=== PATIENT | male | born 1955 | race Caucasian/White ===

== ENCOUNTER → 2020-03-21 | Outpatient (CLI) | payer SELFPAY ==
[~2020-03-21] MED LIST: ALBUMIN 25% 12.5GM 50ML 200 ML IV ONE; ALBUMIN 25% 12.5GM 50ML 50 ML IV ONE
[2020-03-21 13:10] LABS: INR 1.08; PROTHROMBIN TIME 14.7 seconds (11.9-14.5)
[2020-03-21 13:11] LABS: PARTIAL THROMBOPLASTIN TIME 37.6 seconds (23.8-35.5)
--- NOTE | 2020-03-21 20:21 | Diagnostic Imaging Report ---
EXAM: Complete Abdominal Ultrasound INDICATION: ^[id number] ^[id number] ^ASCITES COMPARISON: None. TECHNIQUE: Transverse and longitudinal images of the upper abdomen were obtained. FINDINGS: Liver: Size: 14.8 cm in the right midclavicular line, normal Appearance: Heterogeneous/coarse echogenicity, nodular contour Mass: No focal masses Spleen: Size: 13.4 cm in length, enlarged Echogenicity: Normal Mass: No focal masses Gallbladder: Stones/Sludge: None Wall: 0.4 cm Appearance: No pericholecystic fluid or hydrops. Sonographic Charles's Sign: Negative Bile Ducts: Intrahepatic Ducts: No dilatation Extrahepatic Ducts: Common bile duct measures 0.3 cm, no dilatation Pancreas: Not well-visualized. Right Kidney: Size: 11.6 cm Echogenicity: Normal Parenchymal thickness: Normal Collecting System: No hydronephrosis Stone: None Cyst/Mass: None Left Kidney: Size: 10.5 cm Echogenicity: Normal Parenchymal thickness: Normal Collecting System: No hydronephrosis Stone: None Cyst/Mass: None Vessels: Aorta: Not well visualized. Inferior Vena Cava: Not well visualized. Main Portal Vein: 1.3 cm, borderline dilated with hepatopetal flow. Free Fluid: Small volume ascites. IMPRESSION: Cirrhotic liver with signs of portal hypertension such as splenomegaly, mildly dilated portal vein, and small volume ascites. Mild gallbladder wall thickening, which is nonspecific in the setting of cirrhosis. Signed by: Dr. Richie Weir MD on 03/21/2020 8:17 PM
[2020-03-21 21:21] LABS: LYMPHOCYTES,BODY FLUID 70 %; MONO/MACROPHG,BODY FLUID 9 %; NEUTROPHILS,BODY FLUID 8 %; OTHER CELLS,BODY FLUID 13 %
--- NOTE | 2020-03-22 09:58 | NUR ---
called pt for followup after paracentesis on 03/21. pt states he is a little sore still but slept 7 hours last night and can walk without being sob. no c/o voiced
--- NOTE | 2020-03-22 10:28 | Diagnostic Imaging Report ---
PROCEDURE: Ultrasound-guided paracentesis Procedural Personnel Attending physician(s): Latrell Ureña MD Pre-procedure diagnosis: Cirrhosis, ascites Post-procedure diagnosis: Same Indication: Ascites with pain or pressure symptoms Additional clinical history: None Complications: No immediate complications. IMPRESSION: [place] [address] mL of serous fluid. Plan: Resume care by clinical team. PROCEDURE SUMMARY: - Limited abdominal ultrasound - Ultrasound-guided paracentesis - Additional procedure(s): None PROCEDURE DETAILS: Pre-procedure Consent: Informed consent for the procedure including risks, benefits and alternatives was obtained and time-out was performed prior to the procedure. Preparation: The site was prepared and draped using maximal sterile barrier technique including cutaneous antisepsis. Anesthesia/sedation Level of anesthesia/sedation: No sedation Anesthesia/sedation administered by: Not applicable Total intra-service sedation time (minutes): N/A Initial abdominal ultrasound Initial abdominal ultrasound was performed. Findings: Large ascites. A safe window for paracentesis was identified. Paracentesis Local anesthesia was administered. The peritoneal cavity was accessed and fluid return confirmed position. Ascites was drained. The catheter was then removed, and a sterile bandage was applied. Paracentesis access technique: Real-time ultrasound guidance Catheter placed: 5F Yueh Post-drainage ultrasound: Not performed Additional Details Additional description of procedure: None Equipment details: None Specimens removed: Abdominal fluid Estimated blood loss (mL): Less than 10 Standardized report: [email or web address] Attestation Signer name: Latrell Ureña MD I attest that I was present for the entire procedure. I reviewed the stored images and agree with the report as written. Signed by: Latrell Ureña MD on 03/22/2020 10:25 AM
[2020-03-25 21:22] LABS: BODY FLUID APPEARANCE SL.CLOUDY; BODY FLUID COLOR STRAW; BODY FLUID TYPE PLEURAL
[2020-03-25 21:24] LABS: RBC,BODY FLUID 242 cells/uL; WBC,BODY FLUID 67 cells/uL
== END ==
LOC: US 12:24
PROVIDERS: ATTEND Internal Medicine Gastroenterology
DX: R18.8 Other ascites (principal)
CPT/HCPCS: 36415; 49083; 76700; 82040; 84157; 85014; 85049; 85610; 85730; 87070; 87205; 88112; 88305; 89051

== ENCOUNTER → 2020-05-20 | Outpatient (CLI) | payer SELFPAY ==
[~2020-05-20] MED LIST changes: +ALBUMIN 25% 12.5GM 50ML 100 ML IV ONE; -ALBUMIN 25% 12.5GM 50ML 200 ML IV ONE; +ALBUMIN 25% 12.5GM 50ML 300 ML IV ONE; -ALBUMIN 25% 12.5GM 50ML 50 ML IV ONE
[2020-05-20 14:30] LABS: INR 1.07; PROTHROMBIN TIME 14.6 seconds (11.9-14.5)
[2020-05-20 14:31] LABS: PARTIAL THROMBOPLASTIN TIME 33.2 seconds (23.8-35.5)
--- NOTE | 2020-05-20 16:07 | Diagnostic Imaging Report ---
US Guided Paracentesis. History: Recurrent ascites. Request for paracentesis. Hemodialysis Technician: Brenton Marion MD. Director Of Accounts Payable: None. Modality: Ultrasonography Sedation: None. Anesthesia: Lidocaine local infiltration. Estimated blood loss: < 5 cc. Technique: Informed written consent was obtained. Discussion of risks, benefits, and alternatives were made with the patient. The patient expressed understanding and agreed to proceed. A universal timeout was performed prior to starting the procedure. Maximal sterile precautions were utilized. The procedure room personnel used personal protective equipment. The operators additionally used sterile surgical gloves. A preliminary ultrasonography was performed to assess the target and determine a safe access site. It showed ascites. Pertinent ultrasound images were stored to the PACS for documentation. The access site was selected and sterilely prepped and draped. Local anesthesia was administered. A dermatotomy was performed. A catheter over the needle system was advanced into the peritoneal cavity. Straw colored fluid was aspirated and the plastic catheter advanced into the peritoneum. The catheter was then connected to a fluid recovery system. At the end of the procedure, the catheter was withdrawn and an aseptic dressing applied. The patient tolerated the procedure well. After uneventful recovery recovery, the patient was discharged from the department in stable condition. The total amount of fluid recovered is given below. Complications: None immediate. Specimen: Not applicable. Impression: Successful ultrasound-guided paracentesis using a right lower quadrant access with recovery of 12.2 liters of fluid as described above. Thank you for the opportunity to assist in the care of your patient. Signed by: Brenton Marion MD on 05/20/2020 4:04 PM
== END ==
LOC: US 13:49
PROVIDERS: ATTEND Internal Medicine Gastroenterology
DX: R18.8 Other ascites (principal)
CPT/HCPCS: 36415; 49083; 85014; 85049; 85610; 85730; 88112; 88305

== ENCOUNTER → 2020-06-19 | Outpatient (CLI) | payer SELFPAY ==
[~2020-06-19] MED LIST changes: -ALBUMIN 25% 12.5GM 50ML 100 ML IV ONE; -ALBUMIN 25% 12.5GM 50ML 300 ML IV ONE; +ALBUMIN IV ONE
--- NOTE | 2020-06-19 14:07 | Diagnostic Imaging Report ---
PROCEDURE: Ultrasound-guided paracentesis Procedural Personnel Attending physician(s): Latrell Ureña MD Pre-procedure diagnosis: Cirrhosis, ascites Post-procedure diagnosis: Same Indication: Ascites with pain or pressure symptoms Additional clinical history: None Complications: No immediate complications. IMPRESSION: Ultrasound[place] [address] mL of serous fluid. Plan: Resume care by clinical team. PROCEDURE SUMMARY: - Limited abdominal ultrasound - Ultrasound-guided paracentesis - Additional procedure(s): None PROCEDURE DETAILS: Pre-procedure Consent: Informed consent for the procedure including risks, benefits and alternatives was obtained and time-out was performed prior to the procedure. Preparation: The site was prepared and draped using maximal sterile barrier technique including cutaneous antisepsis. Anesthesia/sedation Level of anesthesia/sedation: No sedation Anesthesia/sedation administered by: Not applicable Total intra-service sedation time (minutes): N/A Initial abdominal ultrasound Initial abdominal ultrasound was performed. Findings: Large ascites. A safe window for paracentesis was identified. Paracentesis Local anesthesia was administered. The peritoneal cavity was accessed and fluid return confirmed position. Ascites was drained. The catheter was then removed, and a sterile bandage was applied. Paracentesis access technique: Real-time ultrasound guidance Catheter placed: 5F Yueh Post-drainage ultrasound: Not performed Additional Details Additional description of procedure: None Equipment details: None Specimens removed: Abdominal fluid Estimated blood loss (mL): Less than 10 Standardized report: [email or web address] Attestation Signer name: Latrell Ureña MD I attest that I was present for the entire procedure. I reviewed the stored images and agree with the report as written. Signed by: Latrell Ureña MD on 06/19/2020 2:04 PM
[2020-06-19 15:15] LABS: BODY FLUID APPEARANCE SL.CLOUDY; BODY FLUID COLOR YELLOW; BODY FLUID TYPE PERITONEAL
[2020-06-19 15:16] LABS: RBC,BODY FLUID 18 cells/uL; WBC,BODY FLUID 65 cells/uL
[2020-06-19 15:26] LABS: LYMPHOCYTES,BODY FLUID 29 %; MONO/MACROPHG,BODY FLUID 12 %; NEUTROPHILS,BODY FLUID 18 %; OTHER CELLS,BODY FLUID 41 %
== END ==
LOC: US 11:05
PROVIDERS: ATTEND Internal Medicine Gastroenterology
DX: K72.90 Hepatic failure, unspecified without coma (principal)
CPT/HCPCS: 36415; 49083; 82040; 84157; 87070; 87205; 88112; 88305; 89051

== ENCOUNTER 2020-07-17 17:22 | Emergency (ER) | payer SELFPAY ==
[~2020-07-17] VITALS: Ht 185.4 cm; Wt 86.2 kg
[2020-07-17 18:00] LABS: BASOPHILS # (AUTO) 0.1 (0.0-0.1); BASOPHILS % 0.6 % (0.0-1.0); EOSINOPHILS # (AUTO) 0.2 (0.0-0.4); EOSINOPHILS % 1.2 % (0.0-6.0); HEMATOCRIT 23.9 % (38.2-49.6); HEMOGLOBIN 7.8 g/dL (14.0-18.0); LYMPHOCYTES # (AUTO) 0.3 (1.0-3.2); LYMPHOCYTES % 2.6 % (18.0-39.1); MEAN CORPUSCULAR HEMOGLOBIN 30.4 pg (28-32); MEAN CORPUSCULAR HGB CONC 32.6 g/dL (31-35); MONOCYTES # (AUTO) 0.2 (0.2-0.8); MONOCYTES % 1.7 % (4.4-11.3); NEUTROPHILS # (AUTO) 11.3 (2.1-6.9); NEUTROPHILS % 93.5 % (38.7-80.0); PLATELET COUNT 131 x10e3/uL (140-360); RED BLOOD COUNT 2.57 x10e6/uL (4.3-5.7); RED CELL DISTRIBUTION WIDTH 14.6 % (11.7-14.4)
[2020-07-17 18:17] LABS: PARTIAL THROMBOPLASTIN TIME 35.5 seconds (23.8-35.5)
[2020-07-17 18:22] LABS: INR 1.12
[2020-07-17 18:23] LABS: ALANINE AMINOTRANSFERASE 14 IU/L (0-55); ALBUMIN 3.1 g/dL (3.5-5.0); ALBUMIN/GLOBULIN RATIO 0.9 (0.8-2.0); ALKALINE PHOSPHATASE 155 IU/L (40-150); ANION GAP 15.4 mmol/L (8-16); BLOOD UREA NITROGEN 16 mg/dL (7-26); BUN/CREATININE RATIO 14 (6-25); CALCIUM 9.1 mg/dL (8.4-10.2); CARBON DIOXIDE 19 mmol/L (22-29); CHLORIDE 100 mmol/L (98-107); CREATININE, SERUM 1.12 mg/dL (0.72-1.25); EST GLOMERULAR FILTRATION RATE > 60 ML/MIN (60-); GLUCOSE 90 mg/dL (74-118); POTASSIUM 4.4 mmol/L (3.5-5.1); SODIUM 130 mmol/L (136-145)
--- OUTSIDE RECORDS SUMMARY | 2020-07-17 18:39 | XMS REPORT | Clinical Summary ---
Author Author [facility] Address Unknown Phone Unavailable Care Team Providers Care Reference Test Clerk Name Role Phone Mary Jane Carr PCP Unavailable Allergies No Known Allergies Medications End Date Status Medication Sig Dispensed Refills Start Date Active FOLIC ACID ORAL Take 1 mg by 0 mouth daily . Active thiamine 100 MG tablet Take 100 mg 0 by mouth daily daily . Active MULTIVITAMIN ORAL Take by mouth 0 daily . Active SPIRONOLACTONE ORAL Take 150 mg 0 by mouth daily . Active lansoprazole (PREVACID Take 40 mg by 0 ORAL) mouth daily . Active propranolol HCl Take 20 mg by 0 (PROPRANOLOL ORAL) mouth daily . Active FUROSEMIDE ORAL Take 60 mg by 0 mouth daily . Active Problems Problem Noted Date Alcoholic cirrhosis of liver with ascites 04/05/2020 Portal hypertension 04/05/2020 Ascites due to alcoholic cirrhosis 04/05/2020 H/O esophageal varices 04/05/2020 Screening for cancer 04/05/2020 Screening for endocrine, metabolic and immunity disor ailyn 04/05/2020 Encounters Care Team Description Date Type Specialty Heena Jenkins R Insurance Call 07/17/2020 Telephone Transplant Michell Prajapati MD Results 06/17/2020 Telephone Hepatology Grisel Mcfadden MA confirm audio appt 06/14/2020 Telephone Hepatology Heena Jenkins R Insurance Call 05/30/2020 Telephone Transplant Ila Kent PA Follow-up 05/21/2020 Telephone Hepatology Heena Jenkins R Insurance Call 05/03/2020 Telephone Transplant Antolin Andrew MD Portal hypertension (HCC) (Primary Dx); Alcoholic cirrhosis of liver with ascites (HCC); H/O esophageal varices; Screening for cancer; Screening for endocrine, metabolic and immunity disorder 04/30/2020 Audio - Hepatology Telemedicine Chacho Ramos Jr., MD 04/30/2020 Abstract Transplant Hepatolo gy Grisel Mcfadden MA confirm appt 04/30/20 04/25/2020 Telephone Hepatology Antolin Ryan MD Alcoholic cirrhosis of liver with ascite s (HCC); Portal hypertension (HCC); Ascites due to alcoholic cirrhosis (HCC); H/O esophageal varices; Screening for cancer; Screening for endocrine, metabolic and immunity disorder 04/05/2020 Office Visit Hepatology Ness Burgess 04/02/2020 Documentation Hepatology Karen Christian MA 03/29/2020 Abstract Hepatology Grisel Mcfadden MA 03/27/2020 Abstract Hepatology Grisel Mcfadden MA 03/27/2020 Documentation Hepatology Grisel Mcfadden MA 03/27/2020 Documentation Hepatology Grisel Mcfadden MA 01/25/2020 Abstract Hepatology Kesly Carpio Rec CD (Rec 1 CD/records from [facility] attguillaume Arzola.) 01/24/2020 Telephone Hepatology after 07/17/2019 Social History Date Tobacco Use Types Packs/Day Years Used Never Smoker Sex Assigned at Date Recorded Not on file Industry Job Start Date Occupation Not on file Not on file Not on file Travel End Travel History Travel Start No recent travel history available. Last Filed Vital Signs Time Taken Vital Sign Reading 04/05/2020 10:16 AM CDT Blood Pressure 100/55 04/05/2020 10:16 AM CDT Pulse 66 04/05/2020 10:16 AM CDT Temperature 37.1 C (98.7 F) 04/05/2020 10:16 AM CDT Respiratory Rate 16 04/05/2020 10:16 AM CDT Oxygen Saturation 100% - Inhaled Oxygen - Concentration 04/05/2020 10:16 AM CDT Weight 81.7 kg (180 lb 1.6 oz) 04/05/2020 10:16 AM CDT Height 180.8 cm (5' 11.2") 04/05/2020 10:16 AM CDT Body Mass Index 24.98 Plan of Treatment Health Maintenance Due Date Last Done Comments COLON CANCER SCREENING 1955 COLONOSCOPY PNEUMOCOCCAL VACCINE 2-64 1961 YEARS AT RISK (1 of 1 - PPSV23) INFLUENZA VACCINE (#1) 2020 LIPID PANEL 01/26/2025 01/27/2020 Procedures Comments Procedure Name Priority Date/Time Associated Diag nosis CBC W/PLT COUNT & AUTO Routine 04/05/2020 Alcohol ic cirrhosis of DIFFERENTIAL 11:17 AM CDT liver with ascites (HCC) Ascites due to alcoholic cirrhosis (HCC) ALPHA FETOPROTEIN (AFP), Routine 04/05/2020 Alcoh olic cirrhosis of TUMOR MARKER 11:17 AM CDT liver with ascites (HCC) Ascites due to alcoholic cirrhosis (HCC) CBC W/PLT COUNT & AUTO Routine 04/05/2020 Alcohol ic cirrhosis of DIFFERENTIAL 11:17 AM CDT liver with ascites (HCC) Ascites due to alcoholic cirrhosis (HCC) HEPATIC FUNCTION PANEL Routine 04/05/2020 Alcohol ic cirrhosis of 11:17 AM CDT liver with ascites (HCC) Ascites due to alcoholic cirrhosis (HCC) BASIC METABOLIC PANEL (7) Routine 04/05/2020 Alco holic cirrhosis of 11:17 AM CDT liver with ascites (HCC) Ascites due to alcoholic cirrhosis (HCC) PROTHROMBIN TIME/INR Routine 04/05/2020 Alcoholic cirrhosis of 11:16 AM CDT liver with ascites (HCC) Ascites due to alcoholic cirrhosis (HCC) after 07/17/2019 Results * CBC with platelet count + automated diff (04/05/2020 11:17 AM CDT) WBC 6.0 3.5 - 10.5 K/L [facility] RBC 2.98 (L) 4.63 - 6.08 M/L [facility] Hemoglobin 10.1 (L) 13.7 - 17.5 GM/DL [facility] Hematocrit 30.0 (L) 40.1 - 51.0 % [facility] MCV 100.7 (H) 79.0 - 92.2 fL [facility] MCH 33.9 (H) 25.7 - 32.2 pg [facility] MCHC 33.7 32.3 - 36.5 GM/DL [facility] RDW 14.3 11.6 - 14.4 % [facility] Platelets 116 (L) 150 - 450 K/CU MM [facility] MPV 8.5 (L) 9.4 - 12.4 fL [facility] nRBC 0 0 - 0 /100 WBC [facility] % Neutros 56 % [facility] % Lymphs 32 % [facility] % Monos 6 % [facility] % Eos 4 % [facility] % Baso 1 % [facility] # Neutros 3.32 1.78 - 5.38 K/L [facility] # Lymphs 1.93 1.32 - 3.57 K/L [facility] # Monos 0.38 0.30 - 0.82 K/L [facility] # Eos 0.26 0.04 - 0.54 K/L [facility] # Baso 0.08 0.01 - 0.08 K/L [facility] Immature 0 0 - 1 % [facility] Granulocytes-[facility] Specimen Blood Performing Organization Address City/State/Zipcode Ph one Number [address] [address] [facility] * Alpha fetoprotein (AFP), tumor marker (04/05/2020 11:17 AM CDT) Alpha-Fetoprotein 6.6 <10.0 ng/mL [facility] Specimen Blood Narrative Performed At Tool Keeper ID - [place] F [facility] Performing Organization Address City/[facility] Ph one Number [place] [address] [facility] * Hepatic function panel (04/05/2020 11:17 AM CDT) Protein, Total 7.4 6.0 - 8.3 gm/dL [facility] Albumin 3.6 3.5 - 5.0 g/dL [facility] Total Bilirubin 3.9 (H) 0.2 - 1.2 mg/dL [facility] Bilirubin, Direct 1.7 (H) 0.1 - 0.5 mg/dL [facility] Alkaline Phosphatase 182 (H) 40 - 150 U/L [facility] AST 41 (H) 5 - 34 U/L [facility] ALT 17 6 - 55 U/L [facility] Specimen Blood Narrative Performed At Tool Keeper ID - [place] F [facility] Specimen slightly icteric [facility] Performing Organization Address [facility] Ph one Number [place] [phone] [place] [address] * Basic Metabolic Panel (04/05/2020 11:17 AM CDT) Sodium 131 (L) 136 - 145 meq/L [facility] Potassium 4.3 3.5 - 5.1 meq/L [facility] Chloride 98 98 - 107 meq/L [facility] CO2 24 22 - 29 meq/L [facility] BUN 9 7 - 21 mg/dL [facility] Creatinine 0.81 0.57 - 1.25 mg/dL [facility] Glucose 108 (H) 70 - 105 mg/dL [facility] Calcium 9.4 8.4 - 10.2 mg/dL [facility] EGFR 97Comment: ESTIMATED GFR IS mL/min/1.73 sq m [facility] NOT ACCURATE CREATININE [facility] CLEARANCE IN PREDICTING GLOMERULAR FILTRATION RATE. ESTIMATED GFR IS NOT APPLICABLE FOR DIALYSIS PATIENTS. Specimen Blood Narrative Performed At Tool Keeper ID - [place] F [facility] Specimen slightly icteric [facility] Performing Organization Address City/[facility] Ph one Number [facility] [address] [place], [place] [address] [facility] * Pro-time/INR (04/05/2020 11:16 AM CDT) Protime 14.6 (H) 11.9 - 14.2 seconds [facility] INR 1.2 <=5.9 [facility] Specimen Blood Narrative Performed At Effective 04/26/2019: PT Reference Range Change [facility] New: 11.9-14.2Previous: 11.7-14.7 [facility] MEDICAL CE NTER RECOMMENDED COUMADIN/WARFARIN INR THERA PY RANGES STANDARD DOSE: 2.0-3.0Includes: PRO PHYLAXIS for venous thrombosis, systemic embolization; TREATMENT for venous thro mbosis and/or pulmonary embolus. HIGH RISK: Target INR is 2.5-3.5 for pa tients wiht mechanical heart valves. Performing Organization Address City/[facility] Ph one Number [facility] [address] [place] [address] [address] [facility] after 07/17/2019 Insurance Payer Benefit Subscriber ID Type Phone Address Plan / Group MULTIPLAN [employer] MULTIPLAN xxxxxxxxx PPO PPO
--- OUTSIDE RECORDS SUMMARY | 2020-07-17 18:39 | XMS REPORT | Clinical Summary ---
Author Author [facility] Organization [facility] Address Unknown Phone Unavailable Care Team Providers Care Bisque Cleaner Name Role Phone Mary Jane Carr PCP Allergies No Known Allergies Medications End Date Status Medication Sig Dispensed Refills Start Date 01/30/2020 Discontinued (Reorder) omeprazole (PriLOSEC) 40 Take 40 mg by 0 MG capsule mouth daily. 02/29/2020 omeprazole (PriLOSEC) 40 Take 1 30 capsule 0 0 MG capsule capsule (40 0 mg total) by mouth daily for 30 days. 02/04/2020 ciprofloxacin (CIPRO) 500 Take 1 tablet 10 tablet 0 MG tablet (500 mg 0 total) by mouth 2 (two) times a day for 5 days. 03/01/2020 furosemide (LASIX) 40 mg Take 1 tablet 30 tablet 0 tablet (40 mg total) 0 by mouth daily for 30 days. 02/29/2020 propranoloL (INDERAL) 10 Take 1 tablet 90 tablet 0 MG tablet (10 mg total) 0 by mouth 3 (three) times a day for 30 days. 03/01/2020 spironolactone Take 1 tablet 30 tablet 0 (ALDACTONE) 100 MG tablet (100 mg 0 total) by mouth daily for 30 days. 02/29/2020 lactulose 20 gram/30 mL Take 15 mL 450 mL 0 solution (10 g total) 0 by mouth daily for 30 days. Active Problems Problem Noted Date Acute blood loss anemia 01/27/2020 Iron deficiency anemia due to chronic blood loss Overview: Added automatically from request for pete oliveira [id number] Encounters Care Team Description Date Type Specialty Jackie Morse MA 01/31/2020 Telephone Gastroenterology BaTiffany washburn MD Su, Young, MD 01/29/2020 Anesthesia Gastroenterology Event Barry Velasquez MD ESOPHAGOGASTRODUODENOSCOPY (EGD) 01/29/2020 Surgery Gastroenterology Grant, MD Henry Mcgovern Syed Muhammad Javed, MD Iron deficiency anemia due to chronic bl ood loss (Primary Dx); Acute blood loss anemia; Acute GI bleeding; Hypokalemia; Hyponatremia 01/27/2020 [facility] Internal Nv dicine - Encounter 01/30/2020 after 07/17/2019 Family History Medical History Relation Name Comments Pulmonary fibrosis Brother Alcohol abuse Father Heart disease Maternal Grandfather Kidney disease Maternal Grandfather Arthritis Mother Relation Name Status Comments Brother Father Maternal Grandfather Mother Social History Date Tobacco Use Types Packs/Day Years Used Never Smoker Smokeless Tobacco: Snuff Current User Comments: 50 years Drinks/Week oz/Week Comments Alcohol Use 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 Last Filed Vital Signs Reading Time Taken Comments Vital Sign 109/58 01/30/2020 7:53 AM PHARMACEUTICAL ASSISTANT Blood Pressure 72 01/30/2020 7:53 AM PHARMACEUTICAL ASSISTANT Pulse 36.4 C (97.6 F) 01/30/2020 7:53 AM PHARMACEUTICAL ASSISTANT Temperature 20 01/30/2020 7:53 AM PHARMACEUTICAL ASSISTANT Respiratory Rate 98% 01/30/2020 7:53 AM PHARMACEUTICAL ASSISTANT Oxygen Saturation - - Inhaled Oxygen Concentration 90.8 kg (200 lb 1.6 oz) 01/29/2020 6:40 AM PHARMACEUTICAL ASSISTANT Weight 185.4 cm (6' 1") 01/27/2020 5:19 PM PHARMACEUTICAL ASSISTANT Height 26.4 01/27/2020 5:19 PM PHARMACEUTICAL ASSISTANT Body Mass Index Plan of Treatment Health Maintenance Due Date Last Done Comments COLONOSCOPY SCREENING 2007 SHINGLES VACCINES (#1) 2007 INFLUENZA VACCINE 07/30/2020 Procedures Comments Procedure Name Priority Date/Time Associated Diag nosis MANUAL DIFFERENTIAL Routine 01/30/2020 6:57 AM PHARMACEUTICAL ASSISTANT ESTIMATED GFR Routine 01/30/2020 6:57 AM PHARMACEUTICAL ASSISTANT CBC WITH PLATELET AND Routine 01/30/2020 DIFFERENTIAL 6:57 AM PHARMACEUTICAL ASSISTANT BASIC METABOLIC PANEL Routine 01/30/2020 6:57 AM PHARMACEUTICAL ASSISTANT ESOPHAGOGASTRODUODENOSCOP 01/29/2020 Iron defici ency anemia Y (EGD) 12:09 PM PHARMACEUTICAL ASSISTANT due to chronic bloo d loss XR RIBS W PA CHEST LEFT Routine 01/29/2020 10:18 AM PHARMACEUTICAL ASSISTANT SMEAR REVIEW Routine 01/29/2020 6:38 AM PHARMACEUTICAL ASSISTANT ESTIMATED GFR Routine 01/29/2020 6:38 AM PHARMACEUTICAL ASSISTANT PROTHROMBIN TIME WITH INR Routine 01/29/2020 6:38 AM PHARMACEUTICAL ASSISTANT HC COMPLETE BLD COUNT Routine 01/29/2020 W/AUTO DIFF 6:38 AM PHARMACEUTICAL ASSISTANT BASIC METABOLIC PANEL Routine 01/29/2020 6:38 AM PHARMACEUTICAL ASSISTANT TRANSFUSE RED BLOOD CELLS Routine 01/28/2020 8:34 PM PHARMACEUTICAL ASSISTANT TRANSFUSE RED BLOOD CELLS Routine 01/28/2020 5:06 PM PHARMACEUTICAL ASSISTANT ALBUMIN, MISC FLUID Routine 01/28/2020 12:41 PM PHARMACEUTICAL ASSISTANT CYTOLOGY Routine 01/28/2020 (NON-GYNECOLOGICAL) 12:40 PM PHARMACEUTICAL ASSISTANT REQUEST US ABDOMINAL PARACENTESIS STAT 01/28/2020 IMAGING 12:38 PM PHARMACEUTICAL ASSISTANT SMEAR REVIEW Routine 01/28/2020 6:32 AM PHARMACEUTICAL ASSISTANT ESTIMATED GFR Routine 01/28/2020 6:32 AM PHARMACEUTICAL ASSISTANT BASIC METABOLIC PANEL Routine 01/28/2020 6:32 AM PHARMACEUTICAL ASSISTANT HC COMPLETE BLD COUNT Routine 01/28/2020 W/AUTO DIFF 6:[address] ABDOMEN PELVIS WO STAT 01/27/2020 CONTRAST 9:19 PM PHARMACEUTICAL ASSISTANT OCCULT BLOOD, STOOL Routine 01/27/2020 4:00 PM PHARMACEUTICAL ASSISTANT AMMONIA LEVEL STAT 01/27/2020 2:28 PM PHARMACEUTICAL ASSISTANT PARTIAL THROMBOPLASTIN STAT 01/27/2020 TIME (PTT) 2:22 PM PHARMACEUTICAL ASSISTANT PROTHROMBIN TIME WITH INR STAT 01/27/2020 2:22 PM PHARMACEUTICAL ASSISTANT PREPARE RBC Routine 01/27/2020 1:15 PM PHARMACEUTICAL ASSISTANT B NATRIURETIC PEPTIDE Routine 01/27/2020 1:15 PM PHARMACEUTICAL ASSISTANT LIPID PANEL Routine 01/27/2020 1:15 PM PHARMACEUTICAL ASSISTANT HEMOGLOBIN A1C Routine 01/27/2020 1:15 PM PHARMACEUTICAL ASSISTANT SMEAR REVIEW STAT 01/27/2020 1:15 PM PHARMACEUTICAL ASSISTANT ESTIMATED GFR STAT 01/27/2020 1:15 PM PHARMACEUTICAL ASSISTANT TYPE AND SCREEN Routine 01/27/2020 1:15 PM PHARMACEUTICAL ASSISTANT BASIC METABOLIC PANEL STAT 01/27/2020 1:15 PM PHARMACEUTICAL ASSISTANT HC COMPLETE BLD COUNT STAT 01/27/2020 W/AUTO DIFF 1:15 PM PHARMACEUTICAL ASSISTANT after 07/17/2019 Results * Estimated GFR (01/30/2020 6:57 AM PHARMACEUTICAL ASSISTANT) Only the most recent of 4 results within the time period is included. Estimated GFR >=90 mL/min/1.73 m2 MORROW Comment: GNOSTICIST Catergory Units [facility] G1 >=90 Normal or high G2 60-89 Mildly decreased G3a 45-59 Mildly to moderately decreased G3b 30-44 Moderately to severely decreased G4 15-29 Severely decreased G5 <15 Kidney failure The eGFR was calculated using the Chronic Kidney Disease Epidemiology Collaboration (CKD-EPI) equation. Interpretation is based on recommendations of the National Kidney Foundation-Kidney Disease Outcomes Quality Initiative (NKF-KDOQI) published in 2014. Specimen Plasma specimen Performing Organization Address City/State/Zipcode Ph one Number [facility] [place] [address] PATHOLOGY AND GENOMIC MEDICINE [facility] [address] [facility] [place] [address] HOSPITAL * Manual differential (01/30/2020 6:57 AM PHARMACEUTICAL ASSISTANT) Pathologist [facility] Manual PERFORMED [facility] differential [facility] Neutrophils 59.0 36.0 - 66.0 % [facility] Lymphocytes 36.0 24.0 - 44.0 % [facility] Monocytes 5.0 0.0 - 6.0 % [facility] Eosinophils 0.0 0.0 - 6.0 % [facility] Basophils 0.0 0.0 - 1.2 % [facility] Metamyelocytes 0 0 - 1 % [facility] Promyelocytes 0 0 - 1 % [facility] Platelet slide Decreased (A) [facility] review [facility] Anisocytosis slight [facility] Polychromasia slight [facility] Tear drop cells Occasional [facility] Schistocytes rare [facility] Ovalocytes Occasional [facility] Enlarged Occasional [facility] Specimen Performing Organization Address City/State/Zipcode Ph one Number [facility] [place] [address] PATHOLOGY AND GENOMIC MEDICINE [address] * CBC with platelet and differential (01/30/2020 6:57 AM PHARMACEUTICAL ASSISTANT) Only the most recent of 4 results within the time period is included. WBC 5.8 4.2 - 11.0 k/uL [facility] RBC 2.86 (L) 4.04 - 5.86 m/uL [facility] HGB 9.6 (L) 13.0 - 17.3 g/dL [facility] HCT 28.9 (L) 34.0 - 45.0 % [facility] MCV 101.0 (H) 80.0 - 98.0 fL [facility] MCH 33.6 27.0 - 34.0 pg [facility] MCHC 33.2 31.5 - 36.5 g/dL [facility] RDW - SD 78.6 (H) 37.0 - 51.0 fL [facility] MPV 8.7 7.4 - 10.4 fL [facility] Platelet count 82 (L) 150 - 400 k/uL [facility] Nucleated RBC 0.00 /100 WBC [facility] Neutrophils 59.0 36.0 - 66.0 % [facility] Lymphocytes 36.0 24.0 - 44.0 % [facility] Monocytes 5.0 0.0 - 6.0 % [facility] Eosinophils 0.0 0.0 - 6.0 % [facility] Basophils 0.0 0.0 - 1.2 % [facility] Specimen Blood Performing Organization Address City/[facility] Ph one Number [facility] [address] [place] [address] PATHOLOGY AND GENOMIC MEDICINE [address] * Basic metabolic panel (01/30/2020 6:57 AM PHARMACEUTICAL ASSISTANT) Only the most recent of 4 results within the time period is included. Sodium 134 (L) 135 - 150 mEq/L [facility] Potassium 3.5 3.5 - 5.0 mEq/L [facility] Chloride 100 98 - 112 mEq/L [facility] CO2 21 (L) 24 - 31 mmol/L [facility] Anion gap 13@ANIO 7 - 15 mEq/L [facility] BUN 8 7 - 18 mg/dL [facility] Creatinine 0.70 0.70 - 1.20 mg/dL [facility] Glucose 106 (H) 65 - 100 mg/dL [facility] Calcium 8.1 (L) 8.8 - 10.2 mg/dL [facility] Specimen Plasma specimen Performing Organization Address City/[facility]/Zipcode Ph one Number [facility] [address] [place] [address] PATHOLOGY AND GENOMIC MEDICINE [facility] [address] [place] [address] HOSPITAL * XR Ribs W Pa Chest Left (01/29/2020 10:18 AM PHARMACEUTICAL ASSISTANT) Specimen Narrative Performed At EXAMINATION: XR RIBS W PA CHEST LEFT [facility] CLINICAL HISTORY: fall pain COMPARISON: None. IMPRESSION: 1.Bibasilar atelectasis. No pleural eff usion. No pneumothorax or midline shift. No focal consolidation. 2.The mediastinal contours and cardiac silhouette are unremarkable. Mild atherosclerotic 3.There is an acute, nondisplaced poste rior lateral seventh rib fracture. 4.Otherwise the bony structures are unr emarkable. [facility]-[id number] Procedure Note Hm Interface, Radiology Results Incoming - 01/29/2020 10:26 AM PHARMACEUTICAL ASSISTANT EXAMINATION: XR RIBS W PA CHEST LEFT CLINICAL HISTORY: fall pain COMPARISON: None. IMPRESSION: 1.Bibasilar atelectasis. No pleural effu kvng. No pneumothorax or midline shift. No focal consolidation. 2.The mediastinal contours and cardiac s ilhouette are unremarkable. 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 4.Otherwise the bony structures are unre markable. [facility]-[id number] Performing Organization Address City/[facility] Ph one Number [facility] [address] [place] [address] * Smear review (01/29/2020 6:38 AM PHARMACEUTICAL ASSISTANT) Only the most recent of 3 results within the time period is included. Platelet slide Decreased (A) [place]UONG review [facility] Anisocytosis 1+ [facility] Polychromasia 1+ [facility] Schistocytes FEW [facility] Target cells FEW [facility] Hartford cells FEW [facility] Specimen Performing Organization Address City/State/[facility] Ph one Number [facility] [address] [place] [id number] PATHOLOGY AND GENOMIC MEDICINE [facility] [address] [place] [address] HOSPITAL * Prothrombin time with INR (01/29/2020 6:38 AM PHARMACEUTICAL ASSISTANT) Only the most recent of 2 results within the time period is included. Prothrombin 16.3 (H) 11.5 - 14.5 sec [facility] INR 1.30 [facility] Comment: GNOSTICIST For patients [facility] antico[facility], reference ranges HOSPITAL below: Indication: INR Value Treatment of Venous Thrombosis, 2.0-3.0 pulmonary emboli, or prophylaxis of a venous thrombosis, or systemic emboli. High dose, high risk patients 3.0-4.5 with mechanical valves. NOTE: INR values over 3.0 are sometimes associated with gastrointestinal hemorrhage, especially values over 4.0. Specimen Blood Performing Organization Address City/State/[facility] Ph one Number [facility] [address] [place] [address] PATHOLOGY AND GENOMIC MEDICINE [facility] [address] [place] [address] * Transfuse RBC (01/28/2020 8:34 PM PHARMACEUTICAL ASSISTANT) Only the most recent of 2 results within the time period is included. * Albumin, misc fluid (01/28/2020 12:41 PM PHARMACEUTICAL ASSISTANT) Pathologist [facility] Fluid type Paracentesis [facility] Albumin, fluid 0.8 g/dL [facility] Comment: GNOSTICIST The reference interval(s) and HOSPITAL other method performance specifications have not been established for this body fluid. The test results must be integrated into the clinical context for interpretation. This test has been modified from the manufacturers instructions. The performance characteristics were determined by [facility] in a manner consistent with CLIA requirements. This test has not been cleared or approved by the U.S. Food and Drug Administration. Specimen Fluid Performing Organization Address City/State/Zipcode Ph one Number [facility] DEPARTMENT OF [address] [place] [address] PATHOLOGY AND GENOMIC MEDICINE [address] * Cytology (non-gynecological) request (01/28/2020 12:40 PM PHARMACEUTICAL ASSISTANT) [facility] PATHOLOGY AND GENOMIC MEDICINE Cytology See link below for PDF Lab [facility] (non-gynecologi Report OF PATHOLOGY jovanna) report AND GENOMIC MEDICINE Result status This is Final Report for [facility] ENT [id number] OF PATHOLOGY AND GENOMIC MEDICINE Specimen Performing Organization Address City/[facility] Ph one Number [facility] [place] [address] [place] [address] PATHOLOGY AND GENOMIC MEDICINE * US Abdominal Paracentesis Imaging (01/28/2020 12:38 PM PHARMACEUTICAL ASSISTANT) Specimen Narrative Performed At EXAMINATION: US ABDOMINAL PARACENTESIS IMAGING [facility] CLINICAL HISTORY: ASCITES COMPARISON:None. TECHNIQUE: The procedure's risks, benefits, and al ternatives were discussed with the patient and written, informed consent w as obtained. Using ultrasound guidance, a site for n eedle entry was selected and the overlying skin was prepped and draped i n the usual sterile fashion. 1% buffered lidocaine was used for local anesthesia . A 5 Azeri Catheter and Needle was inse rted into the peritoneal cavity and 6.8 L of peritoneal fluid was removed. The patient tolerated the procedure wit hout difficulty and was discharged to the radiology recovery area for monitoring prior to discharge. EBL: None. COMPLICATIONS: None. SPECIMENS: As above. ASSISTANTS: None. IMPRESSION: Uncomplicated ultrasound-guided diagnos tic and therapeutic paracentesis. [facility]-[id number] Procedure Note Hm Interface, Radiology Results Incoming - 01/28/2020 1:06 PM PHARMACEUTICAL ASSISTANT EXAMINATION: US ABDOMINAL PARACENTESIS IMAGING CLINICAL HISTORY: ASCITES COMPARISON:None. TECHNIQUE: The procedure's risks, benefits, and alternatives were discussed with the patient and written, informed consent was obtained. Using ultrasound guidance, a site for needle entry was selected and the overlying skin was prepped and draped in the usual sterile fashion. 1% buffered lidocaine was used for local anesthesia. A 5 Azeri Catheter and Needle was inserted into the peritoneal cavity and 6.8 L of peritoneal fluid was removed. The patient tolerated the procedure without difficulty and was discharged to the radiology recovery area for monitoring prior to discharge. EBL: None. COMPLICATIONS: None. SPECIMENS: As above. ASSISTANTS: None. IMPRESSION: Uncomplicated ultrasound-guided diagnostic and therapeutic paracentesis. [facility]-[id number] Performing Organization Address City/[facility]/Zipcode Ph one Number [facility] [address] [place] [address] * CT Abdomen Pelvis Wo Contrast (01/27/2020 9:19 PM PHARMACEUTICAL ASSISTANT) Specimen Narrative Performed At CT ABDOMEN PELVIS WO CONTRAST HM [facility] CLINICAL INDICATION: Distended abdome n --R O ascites TECHNIQUE: Multidetector CT of the abdo men and pelvis was performed without intravenous administration of iodinated contrast with multiplanar reformats. CT scans are performed using radiation dose reduction techniques (iterative reconstruction and/or automated exposur e control). Technical factors are evaluated and adjusted to ensure approp riate moderation of exposure. Automated dose management technology is applied to adjust radiation exposure while achieving a diagnostic quality image. COMPARISON: None. FINDINGS: Evaluation of abdominopelvic contents l imited due to lack of IV contrast. Lung bases: Dependent subsegmental at electasis/scarring. Liver: Mild contour irregularity sugg esting chronic liver disease. Gallbladder and biliary: Gallbladder contains tiny dependent calcified stone. Common bile duct is not dilated. Pancreas: Moderately atrophic with fa tty replacement. Spleen: Normal. Gastrointestinal: Small hiatal hernia. Colonic diverticulosis. Large and small bowel are normal in caliber. Appendix i s not visualized. Adrenals: Normal. Kidneys and ureters: No renal or uret eral calculi are visualized. No hydronephrosis. Urinary bladder: No urinary bladder c alculi are visualized. Lymph nodes: No enlarged lymph nodes in the abdomen or pelvis. Peritoneum: Moderate ascites. No free a ir. Vascular: Mild atherosclerotic change s of the abdominal aorta and major branch vessels. Evaluation of vessel lumens is limited due to lack of IV contrast. Reproductive organs: Normal prostate gland and seminal vesicles. Abdominal wall: Diffuse subcutaneous so ft tissue edema. Small bilateral fat-containing inguinal hernias, also c ontain mild ascitic fluid. Bones: Mild degenerative changes. IMPRESSION: 1. Chronic liver disease. 2. Moderate ascites. 3. Cholelithiasis. No CT evidence of ac mago cholecystitis. 4. Colonic diverticulosis without diver ticulitis. [facility]-[id number] Procedure Note Interface, Radiology Results Incoming - 01/27/2020 9:[address] ABDOMEN PELVIS WO CONTRAST CLINICAL INDICATION: Distended abdomen --R O ascites TECHNIQUE: Multidetector CT of the abdomen and pelvis was performed without intravenous administration of iodinated contrast with multiplanar reformats. CT scans are performed using radiation dose reduction techniques (iterative reconstruction and/or automated exposure control). Technical factors are evaluated and adjusted to ensure appropriate moderation of exposure. Automated dose management technology is applied to adjust radiation exposure while achieving a diagnostic quality image. COMPARISON: None. FINDINGS: Evaluation of abdominopelvic contents limited due to lack of IV contrast. Lung bases: Dependent subsegmental atelectasis/scarring. Liver: Mild contour irregularity suggesting chronic liver disease. Gallbladder and biliary: Gallbladder contains tiny dependent calcified stone. Common bile duct is not dilated. Pancreas: Moderately atrophic with fatty replacement. Spleen: Normal. Gastrointestinal: Small hiatal hernia. Colonic diverticulosis. Large and small bowel are normal in caliber. Appendix is not visualized. Adrenals: Normal. Kidneys and ureters: No renal or ureteral calculi are visualized. No hydronephrosis. Urinary bladder: No urinary bladder calculi are visualized. Lymph nodes: No enlarged lymph nodes in the abdomen or pelvis. Peritoneum: Moderate ascites. No free air. Vascular: Mild atherosclerotic changes of the abdominal aorta and major branch vessels. Evaluation of vessel lumens is limited due to lack of IV contrast. Reproductive organs: Normal prostate gland and seminal vesicles. Abdominal wall: Diffuse subcutaneous soft tissue edema. Small bilateral fat- containing inguinal hernias, also contain mild ascitic fluid. Bones: Mild degenerative changes. IMPRESSION: 1. Chronic liver disease. 2. Moderate ascites. 3. Cholelithiasis. No CT evidence of acu te cholecystitis. 4. Colonic diverticulosis without divert iculitis. [facility]-[id number] Performing Organization Address [facility] one Number [facility] [address] [place] [address] * Occult blood, stool (01/27/2020 4:00 PM PHARMACEUTICAL ASSISTANT) Occult blood, Negative for occult blood. [facility]ROW stool Comment: GNOSTICIST Specimen Information [place] Specimen Source: [facility] Specimen Site: Nonpreserved Specimen Stool - Nonpreserved Performing Organization Address [facility] Ph one Number [facility] [address] [place] [address] PATHOLOGY AND GENOMIC MEDICINE [facility] [address] * Ammonia level (01/27/2020 2:28 PM PHARMACEUTICAL ASSISTANT) Ammonia 33 16 - 60 umol/L [facility] Specimen Plasma specimen Performing Organization Address [facility]/Zipcode Ph one Number [facility] [address] [place] [address] PATHOLOGY AND GENOMIC MEDICINE [facility] [address] * Partial thromboplastin time, activated (01/27/2020 2:22 PM PHARMACEUTICAL ASSISTANT) PTT 39.4 (H) 23.0 - 36.0 sec [facility]ROW Comment: GNOSTICIST PTT therapeutic range for [place] unfractionated heparin is HOSPITAL 61.0-112.0 seconds which corresponds to Anti-Xa 0.3-0.7 U/ml. Specimen Blood Performing Organization Address City/[facility] Ph one Number [facility] [address] [place] [address] PATHOLOGY AND GENOMIC MEDICINE [facility] [address] * Prepare RBC, 2 Units (01/27/2020 1:15 PM PHARMACEUTICAL ASSISTANT) Pathologist [facility] Product name Apheresis Red Cell AS3 #1 LR [facility] Unit number [id number] [facility] Product code [id number] [facility] Dispense status Transfused [facility] Blood [id number] [facility] expiration date [facility] Blood type code 0600 [facility] Blood type A NEGATIVE [facility] Compatibility Compatible [facility] Product name Apheresis Red Cell AS3 #1 LR [facility] Unit number [id number] [facility] Product code [id number] [facility] Dispense status Transfused [facility] Blood [id number] [facility] expiration date [facility] [facility] Blood type code 0600 [facility] Blood type A NEGATIVE [facility] Compatibility Compatible [facility] Specimen Blood Performing Organization Address City/State/Zipcode Ph one Number [facility] [address] [place] [address] PATHOLOGY AND GENOMIC MEDICINE [facility] [address] * Type and screen (01/27/2020 1:15 PM PHARMACEUTICAL ASSISTANT) Pathologist [facility] ABO grouping A [facility] Rh type NEG [facility] Antibody screen NEG [facility] (gel) [facility] Specimen Blood Performing Organization Address City/[facility] Ph one Number [facility] [place] [facility] [address] [place] [address] PATHOLOGY AND GENOMIC MEDICINE [facility] [address] [place] [address] * B natriuretic peptide (01/27/2020 1:15 PM PHARMACEUTICAL ASSISTANT) Pathologist [facility] BNP 59 0 - 100 pg/mL [facility] Specimen Blood Performing Organization Address City/[facility] Ph one Number [facility] [place] [facility] [address] [place] [address] PATHOLOGY AND GENOMIC MEDICINE [facility] [address] [place] [address] [place] [address] HOSPITAL * Hemoglobin A1c (01/27/2020 1:15 PM PHARMACEUTICAL ASSISTANT) Pathologist [facility] Hemoglobin A1C <4.7 4.0 - 5.6 % [facility]ROW Comment: GNOSTICIST HbA1c cutoffs for diagnosing [place] diabetes: HOSPITAL 4.0% - 5.6% = normal 5.7% - 6.4% = increased risk for diabetes (prediabetes)9 >=6.5% = diabetes9 Goals for glycemic control (ADA 2016) < 7.0% Target for non adults with diabetes. More or less stringent targets may be appropriate for individual patients. <7.5% Target for Children and adolescents with type 1 diabetes. Specimen Blood Performing Organization Address City/[facility] Ph one Number [facility] [place] [facility] [address] [place] [address] PATHOLOGY AND GENOMIC MEDICINE [facility] [address] [place] [address] * Lipid panel (01/27/2020 1:15 PM PHARMACEUTICAL ASSISTANT) Pathologist [facility] Cholesterol 209 (H) 0 - 199 mg/dL [facility] Triglycerides 102 0 - 149 mg/dL [facility] HDL cholesterol 46 40 - 9,999 mg/dL [facility] LDL cholesterol 162 (H)Comment: Result 0 - 99 mg/dL [place] [facility] obtained by direct LDL GNOSTICIST measurement [facility] Lipid panel See below [facility] interpretation Comment: GNOSTICIST Total Cholesterol (mg/dL) [place] LDL Cholesterol [facility] (mg/dL) <200 Desirable <100 Optimal 200-239 Borderline-high 100-129 Near or above optimal >=240 High 130-159 Borderline-high 160-189 High >=190 Very high HDL Cholesterol (mg/dL) Triglycerides (mg/dL) <40 Low <150 Normal >=60 High 150-199 Borderline-high 200-499 High >=500 Very high Risk Catergories that modify LDL goals. Risk Catergories LDL goal (mg/dL) CHD and CHD risk equivalent <100 (10-year risk >20%) Multiple (2+) risk factors <130 (10-year risk =<20%) 0-1 risk factors <160 (<10-year risk) Defining levels of lipids in metabolic syndrome Triglycerides >=150 mg/dL HDL Cholesterol Men <40 mg/dL Women <50 mg/dL Non-HDL cholesterol is a second target for therapy in persons with high triglycerides (>=200 mg/dL) Specimen Plasma specimen Performing Organization Address City/State/Zipcode Ph one Number [facility] [place] [place] [address] [place] [address] PATHOLOGY AND GENOMIC MEDICINE [facility] [address] [place] [address] HOSPITAL after 07/17/2019 Advance Directives For more information, please contact: [phone] Patient Fisher Seal Explanation Type Date Recorded Advance Directives, 01/27/2020 2:30 PM Living Will and Medical Power of Director Of Programming
--- OUTSIDE RECORDS SUMMARY | 2020-07-17 18:40 | XMS REPORT | Continuity of Care Document ---
Author Author [facility] t Organization [facility] Address [address] [place] [address] Phone Unavailable Care Team Providers Care Pattern Vault Clerk Name Role Phone Mary Jane Carr PCP Unavailable Sherrill Jenkins Attphys Unavailable VINEET LEDBETTER Attphys Unavailable Tin ABRAMS, Donny Galarza Attphys Grisel Mcfadden MA Attphys Unavailable Vinny HAWKINS, Kitty Thorpe Attphys Shelby ABRAMS, Destiny Dangelo Attphys Richard ABRAMS, Beto Flor Attphys Destiny GARCIA Attphys Unavailable Jenifer, Ness Attphys Unavailable Amada Marquez MA, Karen Attphys Unavailable Mini CHARLTON, Jackie Attphys Unavailable Grant MD, Nilson Diehl Attphys Bryn ABRAMS, Jyoti Ferreira Nickolas Attphys [phone] Eva ABRAMS, Clinton Reddy Attphys Penny ABRAMS, Leila Allen Attphys Ifeoma ABRAMS, Tahir Attphys Kelsy Carpio Attphys Unavailable BRYN, NICKOLAS Admphys Unavailable Payers Payer Name Policy Type Policy Number Effective Date Expiration Date S ource MULTIPLAN BCE EMERGISMULTIPLAN PPOxxxxxxxxxPPO xxxxxxxxx [facility] Problems Condition Name Condition Details Condition Category Status Onset Date Resolution Date Last Treatment Date Treating Clinician Comments Source Alcoholic cirrhosis of liver with ascites Alcoholic ci rrhosis of liver with ascites Disease Active 2020-04-05 00:00:00 [facility] Portal hypertension Portal hypertension Disease Active 2020-04-05 00:00 :00 [facility] Ascites due to alcoholic cirrhosis Ascites due to alcoholic cirr hosis Disease Active 2020-04-05 00:00:00 [facility] H/O esophageal varices H/O esophageal varices Disease Active 2020-04-05 00:00:00 [facility] Screening for endocrine, metabolic and immunity disord er Screening for endocrine, metabolic and immunity disorder Disease Active 2020-04-05 00:00:00 [facility] Acute blood loss anemia Acute blood loss anemia Disease Active 2020-01-27 00:00:00 Scooby hernandez Iron deficiency anemia due to chronic blood loss Iron deficiency anemia due to chronic blood loss Disease Active 2020-01-27 00:00:00 Overview: Added automatically from request for surgery [id number] Scooby De [facility]a Allergies, Adverse Reactions, Alerts This patient has no known allergies or adverse reactions. Family History Family Member Diagnosis Comments Start Date Stop Date Source Natural brother Pulmonary fibrosis H gerson De [facility] Natural father Alcohol abuse Scooby De Anda Maternal grandfather Heart disease H gerson [place] Maternal grandfather Kidney disease Scooby De Anda Natural mother Arthritis [facility] Social History Social Habit Start Date Stop Date Quantity Comments Source History of tobacco use Snuff User Sal De And[place] Sex Assigned At Carl doerodrigo De Anda Alcohol intake 2020-01-30 00:00:00 2020-01-30 00:00:00 Ex-drinker (fi nding) Scooby De Anda Tobacco Comment 2020-01-27 00:00:00 2020-01-27 00:00:00 52 years Scooby De Anda Alcohol Comment 2020-01-27 00:00:00 2020-01-27 00:00:00 Quit dennise nking november 2019 after cirrhosis dx Scooby De Anda Smoking Status Start Date Stop Date Source Never smoker Scooby saldaña Medications Ordered Medication Name Filled Medication Name Start Date Stop Da te Current Medication? Ordering Clinician Indication Dosage Frequency Signature (SIG) Comments Components Source propranolol HCl (PROPRANOLOL ORAL) 2020-04-05 10:35:49 Yes 20mg Take 20 mg by mouth daily . [facility] FUROSEMIDE ORAL 2020-04-05 10:35:49 Yes 60 mg Take 60 mg by mouth daily . [facility] FOLIC ACID ORAL 2020-04-05 10:35:48 Yes 1m g Take 1 mg by mouth daily . [facility] thiamine 100 MG tablet 2020-04-05 10:35:48 Yes 100mg QD Take 100 mg by mouth daily daily . [facility] MULTIVITAMIN ORAL 2020-04-05 10:35:48 Yes Ta ke by mouth daily . [facility] SPIRONOLACTONE ORAL 2020-04-05 10:35:48 Yes 150mg Take 150 mg by mouth daily . [facility] lansoprazole (PREVACID ORAL) 2020-04-05 10:35:48 Yes 40mg Take 40 mg by mouth daily . [facility] furosemide (LASIX) 40 mg tablet 2020-01-31 00:00:00 23:59:00 No 40mg QD Take 1 tablet (40 mg total) by mouth daily for 30 days. Scooby De Anda spironolactone (ALDACTONE) 100 MG tablet 2020-01 00:00:00 2020-03-01 23:59:00 No 100mg QD Take 1 tablet (100 mg total) by mouth daily for 30 days. Scooby De Anda omeprazole (PriLOSEC) 40 MG capsule 2020-01-30 11:18:3 3 2020-01-30 00:00:00 No 40mg QD Take 40 mg by mouth daily. Scooby De Anda omeprazole (PriLOSEC) 40 MG capsule 2020-01-30 00:00:0 0 2020-02-29 23:59:00 No 40mg QD Take 1 capsule (40 mg total) by mouth da helder for 30 days. Scooby De Anda propranoloL (INDERAL) 10 MG tablet 2020-01-30 00:00:00 202 23:59:00 No 10mg Q.[id number] Take 1 ta blet (10 mg total) by mouth 3 (three) times a day for 30 days. Scooby hernandez lactulose 20 gram/30 mL solution 2020-01-30 00:00:00 2020-02 23:59:00 No 10g QD Take 15 mL (10 g total) by mouth daily for 30 d ays. Scooby De Anda ciprofloxacin (CIPRO) 500 MG tablet 2020-01-30 00:00:0 0 2020-02-04 23:59:00 No 500mg Q.5D Take 1 tablet ( 500 mg total) by mouth 2 (two) times a day for 5 days. Scooby De Anda Vital Signs Vital Name Observation Time Observation Value Comments Source Systolic blood pressure 2020-04-05 10:16:00 100 mm[Hg] [facility] Diastolic blood pressure 2020-04-05 10:16:00 55 mm[Hg] [facility] Heart rate 2020-04-05 10:16:00 66 /min [facility] Body temperature 2020-04-05 10:16:00 37.06 Bhumika [facility] Respiratory rate 2020-04-05 10:16:00 16 /min [facility] Body height 2020-04-05 10:16:[address] [facility] Body weight Measured 2020-04-05 10:16:00 81.693 kg [facility] BMI 2020-04-05 10:16:00 24.98 kg/m2 [facility] Oxygen saturation in Arterial blood by Pulse oximetry 04-05 10:16:00 100 /min [facility] Systolic blood pressure 2020-01-30 07:53:20 109 mm[Hg] Scooby De Anda Diastolic blood pressure 2020-01-30 07:53:20 58 mm[Hg] Scooby De Anda Heart rate 2020-01-30 07:53:20 72 /min Scooby De [facility]a Body temperature 2020-01-30 07:53:20 36.44 Bhumika [facility] Respiratory rate 2020-01-30 07:53:20 20 /min [facility] Oxygen saturation in Arterial blood by Pulse oximetry 01-29 07:53:20 98 /min Sc[facility]oby De [facility] Body weight 2020-01-29 06:40:00 90.765 kg Scooby De Anda BMI 2020-01-29 06:40:00 26.40 kg/m2 Scooby De [facility]a Body height 2020-01-27 17:19:04 185.4 cm Scooby De Anda Procedures Procedure Date / Time Performed Performing Clinician [facility] e BASIC METABOLIC PANEL (7) 2020-04-05 11:17:00 Antolin Garcia [facility] HEPATIC FUNCTION PANEL 2020-04-05 11:17:00 Antolin Garcia [facility] ALPHA FETOPROTEIN (AFP), TUMOR MARKER 2020-04-05 11:17:00 Antolin Garcia [facility] CBC W/PLT COUNT & AUTO DIFFERENTIAL 2020-04-05 11:17:00 Bora Garcia [facility] PROTHROMBIN TIME/INR 2020-04-05 11:16:00 Antolin Garcia [facility] BASIC METABOLIC PANEL 2020-01-30 06:57:00 Barry Velasquez CBC WITH PLATELET AND DIFFERENTIAL 2020-01-30 06:57:00 EvaEva baird ESTIMATED GFR 2020-01-30 06:57:00 Barry Velasquez MANUAL DIFFERENTIAL 2020-01-30 06:57:00 Barry Velasquez ESOPHAGOGASTRODUODENOSCOPY (EGD) 2020-01-29 12:09:00 Stacy Velasquez XR RIBS W PA CHEST LEFT 2020-01-29 10:18:26 Nickolas Clemente BASIC METABOLIC PANEL 2020-01-29 06:38:00 Nickolas Clemente HC COMPLETE BLD COUNT W/AUTO DIFF 2020-01-29 06:38:00 Nickolas Salinas i PROTHROMBIN TIME WITH INR 2020-01-29 06:38:00 Nickolas Clemente [facility] ESTIMATED GFR 2020-01-29 06:38:00 Nickolas Clemente SMEAR REVIEW 2020-01-29 06:38:00 Bryn Nickolas Jyoti Almodovar [facility] TRANSFUSE RED BLOOD CELLS 2020-01-28 20:34:34 Eva Hersonbrenda De Anda TRANSFUSE RED BLOOD CELLS 2020-01-28 17:06:42 Eva Hersonbrenda Peña stallings [facility] ALBUMIN, MISC FLUID 2020-01-28 12:41:00 Eva Hersonbrenda Pompahaylie Corinna stokes [facility] CYTOLOGY (NON-GYNECOLOGICAL) REQUEST 2020-01-28 12:40:00 Epi Darbyed Jyoti Almodovar [facility] US ABDOMINAL PARACENTESIS IMAGING 2020-01-28 12:38:13 Eva Nany hayden Clinton De Anda HC COMPLETE BLD COUNT W/AUTO DIFF 2020-01-28 06:32:00 Zaki Rae BASIC METABOLIC PANEL 2020-01-28 06:32:00 Dominga Rae ESTIMATED GFR 2020-01-28 06:32:00 Dominga Rae [facility] SMEAR REVIEW 2020-01-28 06:32:00 Dominga Rae [facility] CT ABDOMEN PELVIS WO CONTRAST 2020-01-27 21:19:19 Guerita Rae OCCULT BLOOD, STOOL 2020-01-27 16:00:00 Fazal Grant AMMONIA LEVEL 2020-01-27 14:28:00 Fazal Grant [facility] PROTHROMBIN TIME WITH INR 2020-01-27 14:22:00 Laurel Henley PARTIAL THROMBOPLASTIN TIME (PTT) 2020-01-27 14:22:00 Laurel Stuart HC COMPLETE BLD COUNT W/AUTO DIFF 2020-01-27 13:15:00 Fazal Grant BASIC METABOLIC PANEL 2020-01-27 13:15:00 Fazal Grant ESTIMATED GFR 2020-01-27 13:15:00 Fazal Grant [facility] SMEAR REVIEW 2020-01-27 13:15:00 Fazal Grant [facility] HEMOGLOBIN A1C 2020-01-27 13:15:00 Dominga Rae [facility] LIPID PANEL 2020-01-27 13:15:00 Dominga Rae [facility] B NATRIURETIC PEPTIDE 2020-01-27 13:15:00 Dominga Rae Almodovar [facility] PREPARE RBC 2020-01-27 13:15:00 [facility] Activity Planned Date Details Comments Source Future Scheduled Test 2025-01-26 00:00:00 Lipid panel (proce dure) [code = 56173453] [facility] Future Scheduled Test 2020-07-30 00:00:00 INFLUENZA VACCINE (#1) [code = INFLUENZA VACCINE (#1)] [facility] Future Scheduled Test 2020-07-30 00:00:00 INFLUENZA VACCINE [code = INFLUENZA VACCINE] [facility] Scheduled Test 2007 00:00:00 COLONOSCOPY SCREEN ING [code = COLONOSCOPY SCREENING] [facility] Scheduled Test 2007 00:00:00 SHINGLES VACCINES (#1) [code = SHINGLES VACCINES (#1)] [facility] Scheduled Test 1963 00:00:00 PNEUMOCOCCAL VACCI NE 2-64 YEARS AT RISK (1 of 1 - PPSV23) [code = PNEUMOCOCCAL VACCINE 2-64 YEARS AT RISK (1 of 1 - PPSV23)] [facility] Future Scheduled Test 1955 00:00:00 Screening for radha gnant neoplasm of colon (procedure) [code = 437958395] [facility] Encounters Start Date/Time End Date/Time Encounter Type Admission Type Attendi [facility] Facility Care Department Encounter ID Source 2020-01-27 00:00:00 2020-01-30 00:00:00 Inpatient NICKOLAS CLEMENTE [facility] [id number] [place] [facility] Results Test Description Test Time Test Comments Results Result Comments Source US GUIDED PARACENTESIS 2020-06-19 14:04:00 [facility] [address] [place] [address] Patient Name: GUILLERMO SCHROEDER MR #: [id number] : 1955 Age/Sex: 64/M [facility] #: [id number] [facility] Physician: Ordered by: VINEET LEDBETTER MD Report #: [id number] Location: Room/Bed: Procedure: [id number] US/US GUIDED PARACENTESIS Exam Date: 06/19/20 Exam Time: 1223 REPORT STATUS: Signed PROCEDURE: Ultrasound-guided paracentesis Procedural Personnel Attending physician(s): Donavon العراقي MD Pre-procedure diagnosis: Cirrhosis, ascites Post-procedure diagnosis: Same Indication: Ascites with pain or pressure symptoms Additional clinical h istory: None Complications: No immediate complications. IMPRESSION: [place] [address] mL of serous fluid. Plan: Resume care by clinical team. PROCEDURE SUMMARY: - Limited abdominal ultrasound - Ultrasound-guided paracentesis - Additional procedure(s): None PROCEDURE DETAILS: Pre-procedure Consent: Informed consent for the procedure including risks, benefits and alternatives was obtained and time-out was performed prior to the procedure. Preparation: The site was prepared and draped using maximal sterile barrier technique including cutaneous antisepsis. Anesthesia/sedation Level of anesthesia/sedation: No sedation Anesthesia/sedation administered by: Not applicable Total intra-service sedation time (minutes): N/A Initial abdominal ultrasound Initial abdominal ultrasound was performed. Findings: Large ascites. A safe window for paracentesis was identified. Paracentesis Local anesthesia was administered. The peritoneal cavity was accessed and fluid return confirmed position. Ascites was drained. The catheter was then removed, and a sterile bandage was applied. Paracentesis access technique: Real-time ultrasound guidance Catheter placed: 5F Ahsan Post-drainage ultrasound: Not performed Additional Details Additional description of procedure: None Equipment details: None Specimens removed: Abdominal fluid Estimated blood loss (mL): Less than 10 Standardized report: SIR_Paracentesis_v3 A ttestation Signer name: Donavon العراقي MD I attest that I was present for the entire procedure. I reviewed the stored images and agree with the report as written. Signed by: Donavon العراقي MD on 06/19/2020 2:04 PM Dictated By: DONAVON العراقي MD 03 Transcribed By: TRINH on 06/19/201403 COPY TO: VINEET LEDBETTER MD US GUIDED PARACENTESIS 2020-05-20 16:03:00 [place] [address] Patient Name: GUILLERMO SCHROEDER MR #: [id number] : 1955 Age/Sex: 64/M Req #: [id number] [facility] Physician: Ordered by: VINEET LEDBETTER MD Report #: [id number] Location: Room/Bed: Procedure: [id number] US/US GUIDED PARACENTESIS Exam Date: 05/20/20 Exam Time: 1437 REPORT STATUS: Signed US Guided Paracentesis. History: Recurrent ascites. Request for paracentesis. Insurance Verification Representative: Brenton Senior MD. Mental Health Tech: None. Modality: Ultrasonography Sedation: None. Anesthesia: Lidocaine local infiltration. Estimated blood loss: < 5 cc. Technique: Informed written consent was obtained. Discussion of risks, benefits, and alternatives were made with the patient. The patient expressed understanding and agreed to proceed. A universal timeout was performed prior to starting the procedure. Maximal sterile precautions were utilized. The procedure room personnel used personal protective equipment. The operators additionally used sterile surgical gloves. A preliminary ultrasonography was performed to assess the target and determine a safe access site. It showed ascites. Pertinent ultrasound images were stored to the PACS for documentation. The access site was selected and sterilely prepped and draped. Local anesthesia was administered. A dermatotomy was performed. A catheter over the needle system was advanced into the peritoneal cavity. Straw colored fluid was aspirated and the plastic catheter advanced into the peritoneum. The catheter was then connected to a fluid recovery system. At the end of the procedure, the catheter was withdrawn and an aseptic dressing applied. The patient tolerated the procedure well. After uneventful recovery recovery, the patient was discharged from the department in stable condition. The total amount of fluid recovered is given below. Complications: None immediate. Specimen: Not applicable. Impression: Successful ultrasound-guided paracentesis using a right lower quadrant access with recovery of 12.2 liters of fluid as described above. Thank you for the opportunity to assist in the care of your patient. Signed by: Brenton Senior MD on 05/20/2020 4:04 PM Dictated By: BRENTON SENIOR MD 1604 Transcribed By: TRINH on 05/20/20 1604 COPY TO: VINEET LEDBETTER MD Alpha fetoprotein (AFP), tumor marker 2020-04-05 12:19:00 Test Item Alpha-Fetoprotein (test code = 1834-1) 6.6 ng/mL <10.0 MORIS (test code = MORIS) Turbine Room Attendant ID Shannon MONIQUE F Lab Interpretation (test code = 05813-5) [facility] TUMOR [id number] 12:19:00* Test Item Value Reference Range Interpretation Comments ALPHA-FETOPROTEIN (BEAKER) (test code = 1094) 6.6 ng/mL <10.0 Turbine Room Attendant ID Shannon MONIQUE FBasic Metabolic [id number] 11:59:00* Test Item Value Reference Range Interpretation Comments Sodium (test code = 2951-2) 131 meq/L 136-145 L Potassium (test code = 2823-3) 4.3 meq/L 3.5-5.1 Chloride (test code = 2075-0) 98 meq/L 98-107 CO2 (test code = 8-9) 24 meq/L 22-29 BUN (test code = 3094-0) 9 mg/dL 7-21 Creatinine (test code = 2160-0) 0.81 mg/dL 0.57-1.25 Glucose (test code = 2345-7) 108 mg/dL 70-105 H Calcium (test code = 73091-1) 9.4 mg/dL 8.4-10.2 EGFR (test code = 38756-3) 97 mL/min/1.73 sq m ESTIMATED GFR IS NOT ACCURATE CREATININE CLEARANCE IN PREDICTING GLOMERULAR FILTRATION RATE. ESTIMATED GFR IS NOT APPLICABLE FOR DIALYSIS PATIENTS. MORIS (test code = MORIS) Turbine Room Attendant ID - ENEIDA CasterStatspecchance slightly ict ivelisse Lab Interpretation (test code = 42975-9) Abnormal [facility] [id number] 11:59:00* Test Item Value Reference Range Interpretation Comments Protein, Total (test code = 2885-2) 7.4 6.0- 8.3 gm/dL Albumin (test code = 84571-5) 3.6 g/dL 3.5-5 Total Bilirubin (test code = 1975-2) 3.9 mg/dL 0.2-1.2 H Bilirubin, Direct (test code = 1968-7) 1.7 mg/dL 0.1-0.5 H Alkaline Phosphatase (test code = 6768-6) 182 U/L 40-150 H AST (test code = 1920-8) 41 U/L 5-34 H ALT (test code = 1742-6) 17 U/L 6-55 MORIS (test code = MORIS) Turbine Room Attendant ID - ENEIDA FSpecimen slightly ict ivelisse Lab Interpretation (test code = 44013-1) Abnormal [facility]OLIC [id number] 11:59:00* Test Item Value Reference Range Interpretation Comments SODIUM (BEAKER) (test code = 381) 131 meq/L 136-145 L POTASSIUM (BEAKER) (test code = 379) 4.3 meq/L 3.5-5.1 CHLORIDE (BEAKER) (test code = 382) 98 meq/L 98-107 CO2 (BEAKER) (test code = 355) 24 meq/L 22-29 BLOOD UREA NITROGEN (BEAKER) (test code = 354) 9 mg/dL 7-21 CREATININE (BEAKER) (test code = 358) 0.81 mg/dL 0.57-1.25 GLUCOSE RANDOM (BEAKER) (test code = 652) 108 mg/dL 70-105 H CALCIUM (BEAKER) (test code = 697) 9.4 mg/dL 8.4-10.2 EGFR (BEAKER) (test code = 1092) 97 mL/min/1.73 sq m ESTIMATED GFR IS NOT ACCURATE CREATININE CLEARANCE IN PREDICTING GLOMERULAR FILTRATION RATE. ESTIMATED GFR IS NOT APPLICABLE FOR DIALYSIS PATIENTS. Turbine Room Attendant CHARITO FLORESpecimen slightly ictericHEPATIC FUNCTION PANEL 2020-04-05 11:59:00* Test Item Value Reference Range Interpretation Comments TOTAL PROTEIN (BEAKER) (test code = 770) 7.4 gm/dL 6.0-8.3 ALBUMIN (BEAKER) (test code = 1145) 3.6 g/dL 3.5-5.0 BILIRUBIN TOTAL (BEAKER) (test code = 377) 3.9 mg/dL 0.2-1.2 H BILIRUBIN DIRECT (BEAKER) (test code = 706) 1.7 mg/dL 0.1-0.5 H ALKALINE PHOSPHATASE (BEAKER) (test code = 346) 182 U/L 40-150 H AST (SGOT) (BEAKER) (test code = 353) 41 U/L 5-34 H ALT (SGPT) (BEAKER) (test code = 347) 17 U/L 6-55 Turbine Room Attendant ID Shannon FLORESpecimen slightly ictericPro-time/[id number] 11:49:00 * Test Item Value Reference Range Interpretation Comments Protime (test code = 5902-2) 14.6 11.9- 14.2 seconds H INR (test code = 6301-6) 1.2 <=5.9 MORIS (test code = MORIS) Effective 04/26/2019: PT Refe rence Range ChangeNew: 11.9- 14.2 Previous: 11.7-14.7 RECOMMENDED COUMADIN/WARFARIN INR THERAPY RANGESSTANDARD DOSE: 2.0-3.0 Includes: PROPHYLAXIS for venous thrombosis, sys temic embolization; TREATMENT for venous thrombosis and/or pulmonary embolus.HIGH RISK: Target INR is 2.5-3.5 for patients wiht mechanical heart valves. Lab Interpretation (test code = 52504-6) Abnormal [facility][id number] 11:49:00* Test Item Value Reference Range Interpretation Comments PROTIME (BEAKER) (test code = 759) 14.6 seconds 11.9-14.2 H INR (BEAKER) (test code = 370) 1.2 <=5.9 Effective 04/26/2019: PT Reference Range ChangeNew: 11.9-14.2 Previous: 11.7-14. 7RECOMMENDED COUMADIN/WARFARIN INR THERAPY RANGESSTANDARD DOSE: 2.0-3.0 Include s: PROPHYLAXIS for venous thrombosis, systemic embolization; TREATMENT for venou s thrombosis and/or pulmonary embolus.HIGH RISK: Target INR is 2.5-3.5 for patie nts wiht mechanical heart valves.CBC with platelet count + automated diff 2020-04-05 11:43:00* Test Item Value Reference Range Interpretation Comments WBC (test code = 6690-2) 6.0 3.5- 10.5 K/L RBC (test code = 789-8) 2.98 4.63- 6.08 M/L L MCHC (test code = 786-4) 33.7 32.3- 36.5 GM/DL L Hematocrit (test code = 4544-3) 30.0 % 40.1-51 L MCV (test code = 787-2) 100.7 fL 79-92.2 H MCH (test code = 785-6) 33.9 pg 25.7-32.2 H RDW (test code = 788-0) 14.3 % 11.6-14.4 Platelets (test code = 777-3) 116 150- 450 K/CU MM L MPV (test code = 74975-7) 8.5 fL 9.4-12.4 L nRBC (test code = 413) 0 0- 0 /100 WBC % Neutros (test code = 429) 56 % % Lymphs (test code = 430) 32 % % Monos (test code = 431) 6 % % Eos (test code = 432) 4 % % Baso (test code = 437) 1 % # Neutros (test code = 670) 3.32 1.78- 5.38 K/L # Lymphs (test code = 414) 1.93 1.32- 3.57 K/L # Monos (test code = 415) 0.38 0.30- 0.82 K/L # Eos (test code = 416) 0.26 0.04- 0.54 K/L # Baso (test code = 417) 0.08 0.01- 0.08 K/L Immature Granulocytes-Relative (test code = 2801) 0 % 0-1 Lab Interpretation (test code = 71860-8) Abnormal [facility] W/PLT COUNT & AUTO [id number] 11:43:00* Test Item Value Reference Range Interpretation Comments WHITE BLOOD CELL COUNT (BEAKER) (test code = 775) 6.0 K/ L 3.5- 10.5 RED BLOOD CELL COUNT (BEAKER) (test code = 761) 2.98 M/ L 4.63-6 .08 L HEMOGLOBIN (BEAKER) (test code = 410) 10.1 GM/DL 13.7-17.5 L HEMATOCRIT (BEAKER) (test code = 411) 30.0 % 40.1-51.0 L MEAN CORPUSCULAR VOLUME (BEAKER) (test code = 753) 100.7 fL 79. 0-92.2 H MEAN CORPUSCULAR HEMOGLOBIN (BEAKER) (test code = 751) 33.9 pg 25.7-32.2 H MEAN CORPUSCULAR HEMOGLOBIN CONC (BEAKER) (test code = 752) 33.7 GM/DL 32.3-36.5 RED CELL DISTRIBUTION WIDTH (BEAKER) (test code = 412) 14.3 % 11.6-14.4 PLATELET COUNT (BEAKER) (test code = 756) 116 K/CU MM 150-450 L MEAN PLATELET VOLUME (BEAKER) (test code = 754) 8.5 fL 9.4-12 .4 L NUCLEATED RED BLOOD CELLS (BEAKER) (test code = 413) 0 /100 WBC 0 -0 NEUTROPHILS RELATIVE PERCENT (BEAKER) (test code = 429) 56 % LYMPHOCYTES RELATIVE PERCENT (BEAKER) (test code = 430) 32 % MONOCYTES RELATIVE PERCENT (BEAKER) (test code = 431) 6 % EOSINOPHILS RELATIVE PERCENT (BEAKER) (test code = 432) 4 % BASOPHILS RELATIVE PERCENT (BEAKER) (test code = 437) 1 % NEUTROPHILS ABSOLUTE COUNT (BEAKER) (test code = 670) 3.32 K/ L 1.78-5.38 LYMPHOCYTES ABSOLUTE COUNT (BEAKER) (test code = 414) 1.93 K/ L 1.32-3.57 MONOCYTES ABSOLUTE COUNT (BEAKER) (test code = 415) 0.38 K/ L 0. 30-0.82 EOSINOPHILS ABSOLUTE COUNT (BEAKER) (test code = 416) 0.26 K/ L 0.04-0.54 BASOPHILS ABSOLUTE COUNT (BEAKER) (test code = 417) 0.08 K/ L 0. 01-0.08 IMMATURE GRANULOCYTES-RELATIVE PERCENT (BEAKER) (test code = 2801) 0 % 0-1 US GUIDED [id number] 10:25:00 [place] [address] Patient Name: GUILLERMO SCHROEDER MR #: [id number] : 1955 Age/Sex: 64/M Req #: [id number] Adm Physician: Ordered by: VINEET LEDBETTER MD Report #: [id number] Location: Room/Bed: Procedure: [id number] US/U S GUIDED PARACENTESIS Exam Date: 03/21/20 Exam Time: 1405 REPORT STATUS: Signed PROC EDURE: Ultrasound-guided paracentesis Procedural Personnel Attending phys ician(s): Donavon العراقي MD Pre-procedure diagnosis: Cirrhosis, ascites Post -procedure diagnosis: Same Indication: Ascites with pain or pressure symptoms Additional clinical history: None Complications: No immediate complicatio ns. IMPRESSION: Ultrasound[place] [address] mL of serous fluid. Plan: Resume care by clinical team. PROCEDURE SUMMARY: - Limited abdominal ultrasound - Ultrasound-guided paracentesis - Additional procedure(s): None PROCEDURE DETAILS: Pre-procedure Consent: Informe d consent for the procedure including risks, benefits and alternatives was obt ained and time-out was performed prior to the procedure. Preparation: The site was prepared and draped using maximal sterile barrier technique including cut aneous antisepsis. Anesthesia/sedation Level of anesthesia/sedation: No s edation Anesthesia/sedation administered by: Not applicable Total intra-serv ice sedation time (minutes): N/A Initial abdominal ultrasound Initial abd ominal ultrasound was performed. Findings: Large ascites. A safe window for pa racentesis was identified. Paracentesis Local anesthesia was administered . The peritoneal cavity was accessed and fluid return confirmed position. Asci meir was drained. The catheter was then removed, and a sterile bandage was appl ied. Paracentesis access technique: Real-time ultrasound guidance Catheter p laced: 5F Yueh Post-drainage ultrasound: Not performed Additional Details Additional description of procedure: None Equipment details: None Specime ns removed: Abdominal fluid Estimated blood loss (mL): Less than 10 Standard ized report: SIR_Paracentesis_v3 Attestation Signer name: Donavon العراقي MD I attest that I was present for the entire procedure. I reviewed the stored images and agree with the report as written. Signed by: Donavon العراقي MD on 10:25 AM Dictated By: DONAVON العراقي MD 1025 Transcribed By: TRINH on 03/22/20 1025 CO PY TO: VINEET LEDBETTER MD US ABDOMEN [id number] 20:14:00 [place] [address] Patient Name: GUILLERMO SCHROEDER MR #: [id number] : 1955 Age/Sex: 64/M Req #: [id number] Adm Physician: Ordered by: VINEET LEDBETTER MD Report #: [id number] Location: US Room/Bed: Procedure: [id number] US/U S ABDOMEN COMPLETE Exam Date: 03/21/20 Exam Time: 15 REPORT STATUS: Signed EXAM: C omplete Abdominal Ultrasound INDICATION: [id number] ASCITE S COMPARISON: None. TECHNIQUE: Transverse and longitudinal images of the up per abdomen were obtained. FINDINGS: Liver: Size: 14.8 cm in the right midclavicular line, normal Appearance: Heterogeneous/coarse echogenicity, nodular contour Mass: No focal masses Spleen: Size: 13.4 cm in length, enlarged Echogenicity: Normal Mass: No focal masses Gallbladder: Stones/Sludge: None Wall: 0.4 cm Appearance: No pericholecystic fluid or hydrops. Sonographic Nicko y's Sign: Negative Bile Ducts: Intrahepatic Ducts: No dilatation Extrahepatic Ducts: Common bile duct measures 0.3 cm, no dilatation Ann creas: Not well-visualized. Right Kidney: Size: 11.6 cm Ec hogenicity: Normal Parenchymal thickness: Normal Collecting Syst em: No hydronephrosis Stone: None Cyst/Mass: None Left Kidney: Size: 10.5 cm Echogenicity: Normal Par enchymal thickness: Normal Collecting System: No hydronephrosis Stone: None Cyst/Mass: None Vessels: Aorta: Not well visuali zed. Inferior Vena Cava: Not well visualized. Main Portal Vein: 1. 3 cm, borderline dilated with hepatopetal flow. Free Fluid: Small vo lume ascites. IMPRESSION: Cirrhotic liver with signs of portal hypertensi on such as splenomegaly, mildly dilated portal vein, and small volume ascites. Mild gallbladder wall thickening, which is nonspecific in the setting of cirrhosis. Signed by: Dr. Polly Moody MD on 03/21/2020 8: 17 PM Dictated By: POLLY MOODY MD 16 Transcribed By: TRINH on 03/21/202016 COPY TO: VINEET LEDBETTER MD Cytology (non-gynecological) [id number] 14:43:01* Test Item Value Reference Range Interpretation Comments Case number (test code = [id number]) [id number] Cytology (non-gynecological) report (test code = 1178) See link below for PDF Lab Report Result status (test code = 5033173) This is Final Report for [id number] [facility] with platelet and [id number] 08:14:12* Test Item Value Reference Range Interpretation Comments WBC (test code = 61816-7) 5.8 4.2- 11.0 k/uL RBC (test code = 07983-2) 2.86 m/uL 4.04-5.86 L HGB (test code = 718-7) 9.6 g/dL 13-17.3 L HCT (test code = 4544-3) 28.9 % 34-45 L MCV (test code = 787-2) 101.0 fL 80-98 H MCH (test code = 785-6) 33.6 pg 27-34 MCHC (test code = 786-4) 33.2 g/dL 31.5-36.5 RDW - SD (test code = 20647-9) 78.6 fL 37-51 H MPV (test code = 26064-9) 8.7 fL 7.4-10.4 Platelet count (test code = 86499-8) 82 150- 400 k/uL L Nucleated RBC (test code = 37350-6) 0.00 /100 WBC Neutrophils (test code = 73740-1) 59.0 % 36-66 Lymphocytes (test code = 37578-5) 36.0 % 24-44 Monocytes (test code = 53632-5) 5.0 % 0-6 Eosinophils (test code = 67241-6) 0.0 % 0-6 Basophils (test code = 48643-2) 0.0 % 0-1.2 Lab Interpretation (test code = 40033-4) Abnormal [facility] [id number] 08:14:12* Test Item Value Reference Range Interpretation Comments Manual differential (test code = 43042-9) PERFORMED Neutrophils (test code = 91478-9) 59.0 % 36-66 Lymphocytes (test code = 97830-0) 36.0 % 24-44 Monocytes (test code = 63310-5) 5.0 % 0-6 Eosinophils (test code = 98828-8) 0.0 % 0-6 Basophils (test code = 56084-1) 0.0 % 0-1.2 Metamyelocytes (test code = 740-1) 0 % 0-1 Promyelocytes (test code = 783-1) 0 % 0-1 Platelet slide review (test code = 86114-0) Decreased A Anisocytosis (test code = 702-1) slight Polychromasia (test code = 31650-6) slight Tear drop cells (test code = 7791-7) Occasional Schistocytes (test code = 800-3) rare Ovalocytes (test code = 774-0) Occasional Enlarged platelets (test code = 97641-5) Occasional Lab Interpretation (test code = 80782-9) Abnormal [facility] metabolic [id number] 08:01:22* Test Item Value Reference Range Interpretation Comments Sodium (test code = 2951-2) 134 135- 150 mEq/L L Potassium (test code = 2823-3) 3.5 3.5- 5.0 mEq/L Chloride (test code = 2075-0) 100 98- 112 mEq/L CO2 (test code = 2027-9) 21 mmol/L 24-31 L Anion gap (test code = 60183-6) 13@ANIO 7- 15 mEq/L BUN (test code = 3094-0) 8 mg/dL 7-18 Creatinine (test code = 2160-0) 0.70 mg/dL 0.7-1.2 Glucose (test code = 2345-7) 106 mg/dL 65-100 H Calcium (test code = 37326-7) 8.1 mg/dL 8.8-10.2 L Lab Interpretation (test code = 67350-8) Abnormal [facility]Estimated [id number] 08:01:22* Test Item Value Reference Range Interpretation Comments Estimated GFR (test code = 5488) >=90 mL/min/1.73 m2 Catergory Units InterpretationG1 >=90 Normal or highG2 60-89 Mildly lihytpcbyM8o 45-59 Mildly to moderately zcmntjimmS9e 30-44 Moderately to severely decreasedG4 15-29 Severely decreasedG5 <15 Kidney failureThe eGFR was calculated using the Chronic Kidney Disease Epidemiology Collaboration (CKD-EPI) equation. Interpretation is based on recommendations of the National Kidney Foundation-Kidney Disease Outcomes Quality Initiative (NKF-KDOQI) published in 2014. [facility] MethodistXR Ribs W Pa Chest [id number] 10:22:57Hm Interface, Radiology Results 01/29/2020 10:26 AM CSTEXAMINATION: XR RIBS W PA CHEST LEFTCLINICAL HISTORY: fall painCOMPARISON: None.IMPRESSION:1.Bibasilar atelectasis. No pleural effusion. No pneumothorax or midline shift. No focal consolidation.2.The mediastinal contours and cardiac silhouette are un remarkable. Mild atherosclerotic3.There is an acute, nondisplaced posterior late ral seventh rib fracture.4.Otherwise the bony structures are unremarkable.[facility]-2 [id number] MethodistSmear [id number] 08:39:50* Test Item Value Reference Range Interpretation Comments Platelet slide review (test code = 89444-6) Decreased A Anisocytosis (test code = 702-1) 1+ Polychromasia (test code = 76322-2) 1+ Schistocytes (test code = 800-3) FEW Target cells (test code = 65875-8) FEW Shirin cells (test code = 7790-9) FEW Lab Interpretation (test code = 69884-9) [facility] with [id number] 07:20:47* Test Item Value Reference Range Interpretation Comments Prothrombin time (test code = 5902-2) 16.3 11.5- 14.5 sec H INR (test code = 59194-4) 1.30 Fo r patients on anticoagulant therapy, reference ranges below:Indication: INR ValueTreatment of Venous Thrombosis, 2.0-3.0pulmonary emboli, or prophylaxisof a venous thrombosis, or systemic emboli.High dose, high risk patients 3.0-4.5with mechanical valves.NOTE: INR values over 3.0 are sometimes associated withgastrointestinal hemorrhage, especially values over 4.0. Lab Interpretation (test code = 54268-2) Abnormal Sco[facility] Murphybumin, misc [id number] 19:48:14* Test Item Value Reference Range Interpretation Comments Fluid type (test code = 91718-1) Paracentesis Albumin, fluid (test code = 1747-5) 0.8 g/dL The reference interval(s) and other method performance specifications have not been established for this body fluid. The test results must be integrated into the clinical context for interpretation.This test has been modified from the manufacturers instructions. The performance characteristics were determined by [facility] in a manner consistent with CLIA requirements. This test has not been cleared or approved by the U.S. Food and Drug Administration. [place] [facility] Mu-IsmPrepare RBC, 2 Lyfij2963-50-29 17:15:00* Test Item Value Reference Range Interpretation Comments Product name (test code = 25) Apheresis Red Cell AS3 #1 LR Unit number (test code = 0715437) [id number] Product code (test code = 3092) [id number] Dispense status (test code = 24) Transfused Blood expiration date (test code = 302) [id number] Blood type code (test code = 308) 600 Blood type (test code = 1314) A NEGATIVE Compatibility (test code = 6400) Compatible [facility] Abdominal Paracentesis Ofxcznc1110-43-41 13:03:23Hm Interface, Radiology Results 01/28/2020 1:06 PM CSTEXAMINATION: US ABDOMINAL PARACENTESIS IMAGINGCLINICAL HISTORY: ASCITESCOMPARISON:None.TECHNI QUE:The procedure's risks, benefits, and alternatives were discussed with the pa tient and written, informed consent was obtained.Using ultrasound guidance, a si te for needle entry was selected and the overlying skin was prepped and draped i n the usual sterile fashion. 1% buffered lidocaine was used for local anesthesia . A 5 Kazakh Catheter and Needle was inserted into the peritoneal cavity and 6.8 L of peritoneal fluid was removed. The patient tolerated the procedure without difficulty and was discharged to the radiology recovery area for monitoring prio r to discharge.EBL: None. COMPLICATIONS: None.SPECIMENS: As above.ASSISTANTS: No ne.IMPRESSION:Uncomplicated ultrasound-guided diagnostic and therapeutic paracen tesis.[facility]-[id number] MethodistCT Abdomen Pelvis Wo Rcylgzth8468-10-76 21:55:24Hm Interface, Radiology Results 01/27/2020 9:58 PM CSTCT ABDOMEN PELVIS WO CONTRASTCLINICAL INDICATION: Distended abdomen --R O ascitesTECHNIQUE: Multidetector CT of the abdomen and pelvis was performed without intravenous administration of iodinated contrast with multiplanar reformats.CT scans are performed using radiation dose reduction techniques (iterative reconstruction and/or automated exposure control). Technical factors are evaluated and adjusted to ensure appropriate moderation of exposure. Automated dose management technology is applied to adjust radiation exposure while achieving a diagnostic quality image.COMPARISON: None. FINDINGS:Evaluation of abdominopelvic contents limited due to lack of IV contrast.Lung bases: Dependent subsegmental atelectasis/scarring.Liver: Mild contour irregularity suggesting chronic liver disease.Gallbladder and biliary: Gallbladder contains tiny dependent calcified stone. Common bile duct is not dilated. Pancreas: Moderately atrophic with fatty replacement.Spleen: No rmal.Gastrointestinal: Small hiatal hernia. Colonic diverticulosis. Large and sm all bowel are normal in caliber. Appendix is not visualized. Adrenals: Normal. Kidneys and ureters: No renal or ureteral calculi are visualized. No hydronephr osis.Urinary bladder: No urinary bladder calculi are visualized.Lymph nodes: N o enlarged lymph nodes in the abdomen or pelvis.Peritoneum: Moderate ascites. No free air.Vascular: Mild atherosclerotic changes of the abdominal aorta and rosa or branch vessels. Evaluation of vessel lumens is limited due to lack of IV cont rast.Reproductive organs: Normal prostate gland and seminal vesicles.Abdominal wall: Diffuse subcutaneous soft tissue edema. Small bilateral fat-containing ing uinal hernias, also contain mild ascitic fluid.Bones: Mild degenerative changes .IMPRESSION:1. Chronic liver disease.2. Moderate ascites. 3. Cholelithiasis. No CT evidence of acute cholecystitis.4. Colonic diverticulosis without diverticuli tis.[facility]-[id number] MethodistB natriuretic [id number] 16:17:45* Test Item Value Reference Range Interpretation Comments BNP (test code = 40345-3) 59 pg/mL 0-100 [place] MethodistOccult blood, oezsz7447-58-97 16:11:29* Test Item Value Reference Range Interpretation Comments Occult blood, stool (test code = 2334-1) Negative for occult blood. Specimen InformationSpecimen Source: StoolSpecimen Site: Nonpreserved [facility] MethodistHemoglobin [id number] 16:02:48* Test Item Value Reference Range Interpretation Comments Hemoglobin A1C (test code = 16283-4) <4.7 4-5.6 HbA1c cutoffs for diagnosing diabetes:4.0% - 5.6% = normal5.7% - 6.4% = increased risk for diabetes (prediabetes)9>=6.5% = ezwxjbdb8Fpmxp for glycemic control (ADA 2016)< 7.0% Target for non adults with diabetes. More or less stringent targets may be appropriate for individual patients. <7.5% Target for Children and adolescents with type 1 diabetes. [facility] MethodistLipid [id number] 15:42:03* Test Item Value Reference Range Interpretation Comments Cholesterol (test code = 2093-3) 209 mg/dL 0-199 H Triglycerides (test code = 2571-8) 102 mg/dL 0-149 HDL cholesterol (test code = 2085-9) 46 mg/dL 40-9999 LDL cholesterol (test code = 2089-1) 162 mg/dL 0-99 H Result obtained by direct LDL measurement Lipid panel interpretation (test code = 27620-3) See below Total Cholesterol (mg/dL) LDL Cholesterol (mg/dL) <200 Desirable <100 Optimal 200-239 Borderline-high 100-129 Near or above optimal >=240 High 130-159 Borderline- high 160-189 High >=190 Very highHDL Cholesterol (mg/dL) Triglycerides (mg/dL) <40 Low <150 Normal >=60 High 150-199 Borderline-high 200-499 High >=500 Very high Risk Catergories that modify LDL goals.Risk Catergories LDL goal (mg/dL)CHD and CHD risk equivalent <100 (10-year risk >20%)Multiple (2+) risk factors <130 (10-year risk =<20%)0-1 risk factors <160 (<10-year risk) Defining levels of lipids in metabolic syndromeTriglycerides >=150 mg/dLHDL Cholesterol Men <40 mg/dL Women <50 mg/dL Non-HDL cholesterol is a second target for therapy in personswith high triglycerides (>=200 mg/dL) Lab Interpretation (test code = 48947-8) Abnormal [facility] MethodistAmmonia [id number] 14:55:35* Test Item Value Reference Range Interpretation Comments Ammonia (test code = 1841-6) 33 umol/L 16-60 [facility] MethodistPartial thromboplastin time, [id number] 14:47:54* Test Item Value Reference Range Interpretation Comments PTT (test code = 3173-2) 39.4 23.0- 36.0 sec H P TT therapeutic range for unfractionated heparin is61.0-112.0 seconds which corresponds to Anti-Xa0.3-0.7 U/ml. Lab Interpretation (test code = 25331-4) Abnormal [facility] MethodistType and [id number] 14:28:00* Test Item Value Reference Range Interpretation Comments ABO grouping (test code = 883-9) A Rh type (test code = 94397-3) NEG Antibody screen (gel) (test code = 890-4) NEG [facility] MethodistUS GUIDED [id number] 10:41:00 [place] [address] Patient Name: GUILLERMO SCHROEDER MR #: [id number] : 1955 Age/Sex: 64/M Req #: [id number] Adm Physician: Ordered by: VINEET LEDBETTER MD Report #: [id number] Location: US Room/Bed: Procedure: [id number] US/U S GUIDED PARACENTESIS Exam Date: 12/28/19 Exam Time: 0838 REPORT STATUS: Signed PROC EDURE: Ultrasound-guided paracentesis Procedural Personnel Attending best nagy(s): Donavon العراقي MD Pre-procedure diagnosis: Cirrhosis, ascites Post -procedure diagnosis: Same Indication: Ascites with pain or pressure symptoms Additional clinical history: None Complications: No immediate complicatio ns. IMPRESSION: Ultrasound-guided paracentesis with drainage of 4500 m L of serous fluid. Plan: Resume care by clinical team. PROCEDURE SUMMARY: - Limited abdominal ultrasound - Ultrasound-guided paracentesis - Additional p rocedure(s): None PROCEDURE DETAILS: Pre-procedure Consent: Informed consent for the procedure including risks, benefits and alternatives was obta ined and time-out was performed prior to the procedure. Preparation: The site was prepared and draped using maximal sterile barrier technique including cuta neous antisepsis. Anesthesia/sedation Level of anesthesia/sedation: No se dation Anesthesia/sedation administered by: Not applicable Total intra-servi ce sedation time (minutes): N/A Initial abdominal ultrasound Initial abdo tanya ultrasound was performed. Findings: Large ascites. A safe window for par acentesis was identified. Paracentesis Local anesthesia was administered. The peritoneal cavity was accessed and fluid return confirmed position. Ascit es was drained. The catheter was then removed, and a sterile bandage was appli ed. Paracentesis access technique: Real-time ultrasound guidance Catheter pl aced: 5F Ahsan Post-drainage ultrasound: Not performed Additional Details Additional description of procedure: None Equipment details: None Specimens removed: Abdominal fluid Estimated blood loss (mL): Less than 10 Standardi zed report: SIR_Paracentesis_v3 Attestation Signer name: Donavon العراقي MD I attest that I was present for the entire procedure. I reviewed the stored i mages and agree with the report as written. Signed by: Donavon العراقي MD on 12/28/2019 10:42 AM Dictated By: DONAVON العراقي MD 41 Transcribed By: TRINH on 12/28/191041 COPY TO: VINEET LEDBETTER MD
--- NOTE | 2020-07-17 18:41 | Emergency Department Note ---
History of Present Illnes History of Present Illness Chief Complaint: General Medicine Complaints History of Present Illness This is a 65 year old male SENT TO HAVE H/H RECHECKED BECAUSE DACKA SENT HIM FOR LOW HEMOGLOBIN. PT HAS CIRROHOSIS AND GETS HIS PERTENTISIS TAPS HERE, denies chest pain, denies sob,, . Historian: Patient Arrival Mode: Car Onset (how long ago): year(s) (several) Location: none Quality: low hemoglobin Radiation: Reports non-radiation Severity: mild Onset quality: unable to specify Duration (how long): month(s) (several) Timing of current episode: constant Progression: worsening Chronicity: chronic Context: Denies recent illness, Denies recent surgery, Denies trauma/injury Relieving factors: none Exacerbating factors: none Associated symptoms: Reports denies other symptoms Treatments prior to arrival: none Past Medical/Family History Physician Review I have reviewed the patient's past medical and family history. Any updates have been documented here. Past Medical History Recent Fever: No Clinical Suspicion of Infectio: No New/Unexplained Change in Ment: No Past Medical History: Liver Disease, Anemia, DVT/PE Other Medical History: CIRROHOSIS ALOCOHOLISM (11/28/2019) STOPPED DRINKING VARIES BILATERAL PULMONARY EMBOLISM NEVER SMOKER Past Surgical History: None Social History Smoking Cessation: Unknown if ever smoked Counseling Performed: No Alcohol Use: None Any Illegal Drug Use: No Physically hurt or threatened: No Other Any Pre-Existing Lines (PICC,: No Review of Systems Review of Systems Constitutional: Reports no symptoms EENTM: Reports no symptoms Cardiovascular: Reports no symptoms Respiratory: Reports no symptoms Gastrointestinal: Reports no symptoms Genitourinary: Reports no symptoms Musculoskeletal: Reports no symptoms Integumentary: Reports no symptoms Neurological: Reports no symptoms Psychological: Reports no symptoms Endocrine: Reports no symptoms Hematological/Lymphatic: Reports no symptoms Physical Exam Related Data Allergies: Coded Allergies: No Known Allergies (Unverified , 07/17/20) Triage Vital Signs Vital Signs Date Time Temp Pulse Resp B/P (MAP) Pulse Ox O2 Delivery O2 Flow Rate FiO2 07/17/20 17:43 98.5 83 16 100/58 100 Room Air Vital signs reviewed: Yes Physical Exam CONSTITUTIONAL Constitutional: Present well-developed, Present well-nourished HENT HENT: Present normocephalic, Present atraumatic, Present oropharynx clear/moist, Present nose normal HENT L/R: Present left ext ear normal, Present right ext ear normal EYES Eyes: Reports PERRL, Reports other (pale conjunctiva) NECK Neck: Present ROM normal PULMONARY Pulmonary: Present effort normal, Present breath sounds normal CARDIOVASCULAR Cardiovascular: Present regular rhythm, Present heart sounds normal, Present capillary refill normal, Present normal rate GASTROINTESTINAL Abdominal: Present soft, Present nontender, Present bowel sounds normal, Present other (mild ascites present) GENITOURINARY Genitourinary: Present exam deferred SKIN Skin: Present warm, Present dry MUSCULOSKELETAL Musculoskeletal: Present ROM normal NEUROLOGICAL Neurological: Present alert, Present oriented x 3, Present no gross motor or sensory deficits PSYCHOLOGICAL Psychological: Present mood/affect normal, Present judgement normal Results Laboratory Result Diagram: 07/17/20174907/17/201749 Laboratory Laboratory Tests Test 07/17/20 17:50 White Blood Count 12.07 x10e3/uL (4.8-10.8) Red Blood Count 2.57 x10e6/uL (4.3-5.7) Hemoglobin 7.8 g/dL (14.0-18.0) Hematocrit 23.9 % (38.2-49.6) Mean Corpuscular Volume 93.0 fL (81-99) Mean Corpuscular Hemoglobin 30.4 pg (28-32) Mean Corpuscular Hemoglobin Concent 32.6 g/dL (31-35) Red Cell Distribution Width 14.6 % (11.7-14.4) Platelet Count 131 x10e3/uL (140-360) Neutrophils (%) (Auto) 93.5 % (38.7-80.0) Lymphocytes (%) (Auto) 2.6 % (18.0-39.1) Monocytes (%) (Auto) 1.7 % (4.4-11.3) Eosinophils (%) (Auto) 1.2 % (0.0-6.0) Basophils (%) (Auto) 0.6 % (0.0-1.0) Neutrophils # (Auto) 11.3 (2.1-6.9) Lymphocytes # (Auto) 0.3 (1.0-3.2) Monocytes # (Auto) 0.2 (0.2-0.8) Eosinophils # (Auto) 0.2 (0.0-0.4) Basophils # (Auto) 0.1 (0.0-0.1) Absolute Immature Granulocyte (auto 0.05 x10e3/uL (0-0.1) Prothrombin Time 15.0 seconds (11.9-14.5) Prothromb Time International Ratio 1.12 Activated Partial Thromboplast Time 35.5 seconds (23.8-35.5) Sodium Level 130 mmol/L (136-145) Potassium Level 4.4 mmol/L (3.5-5.1) Chloride Level 100 mmol/L (98-107) Carbon Dioxide Level 19 mmol/L (22-29) Anion Gap 15.4 mmol/L (8-16) Blood Urea Nitrogen 16 mg/dL (7-26) Creatinine 1.12 mg/dL (0.72-1.25) Estimat Glomerular Filtration Rate > 60 ML/MIN (60-) BUN/Creatinine Ratio 14 (6-25) Glucose Level 90 mg/dL (74-118) Calcium Level 9.1 mg/dL (8.4-10.2) Total Bilirubin 2.6 mg/dL (0.2-1.2) Aspartate Amino Transf (AST/SGOT) 31 IU/L (5-34) Alanine Aminotransferase (ALT/SGPT) 14 IU/L (0-55) Alkaline Phosphatase 155 IU/L (40-150) Troponin I 0.023 ng/mL (0-0.300) Total Protein 6.6 g/dL (6.5-8.1) Albumin 3.1 g/dL (3.5-5.0) Globulin 3.5 g/dL (2.3-3.5) Albumin/Globulin Ratio 0.9 (0.8-2.0) Lab results reviewed: Yes Assessment & Plan Medical Decision Making MDM pt sent for low hemoglobin possibly needs blood transfusion cbc, cmp ordered pt's hgb 7.8, no indication for emergent blood transfusion, pt without any symptoms of severe anemia as well i paged dr luz twice and he has not returned call Assessment & Plan Final Impression: (1) Anemia, chronic disease Depart Disposition: HOME, SELF-CARE Last Vital Signs Date Time Temp Pulse Resp B/P (MAP) Pulse Ox O2 Delivery O2 Flow Rate FiO2 07/17/20 17:43 98.5 83 16 100/58 100 Room Air JAMISON ABREU MD Jul 17, 2020 18:41
[2020-07-17 20:06] VITALS: BP 101/54
== END 2020-07-17 20:10 | disposition home or self-care (01) ==
LOC: ER 18:29
DX: D64.9 Anemia, unspecified (principal); K74.60 Unspecified cirrhosis of liver; Z86.711 Personal history of pulmonary embolism
CPT/HCPCS: 36415; 80053; 84484; 85025; 85610; 85730; 86850; 86900; 99283

== ENCOUNTER → 2020-07-23 | Outpatient (CLI) | payer SELFPAY ==
[2020-07-23 16:06] LABS: RBC,BODY FLUID 33 cells/uL; WBC,BODY FLUID 79 cells/uL
--- NOTE | 2020-07-23 16:28 | Diagnostic Imaging Report ---
PROCEDURE: Ultrasound-guided paracentesis Procedural Personnel Attending physician(s): Latrell Ureña MD Pre-procedure diagnosis: Cirrhosis, ascites Post-procedure diagnosis: Same Indication: Ascites with pain or pressure symptoms Additional clinical history: None Complications: No immediate complications. IMPRESSION: [place] [address] [place] serous fluid. Plan: Resume care by clinical team. PROCEDURE SUMMARY: - Limited abdominal ultrasound - Ultrasound-guided paracentesis - Additional procedure(s): None PROCEDURE DETAILS: Pre-procedure Consent: Informed consent for the procedure including risks, benefits and alternatives was obtained and time-out was performed prior to the procedure. Preparation: The site was prepared and draped using maximal sterile barrier technique including cutaneous antisepsis. Anesthesia/sedation Level of anesthesia/sedation: No sedation Anesthesia/sedation administered by: Not applicable Total intra-service sedation time (minutes): N/A Initial abdominal ultrasound Initial abdominal ultrasound was performed. Findings: Large ascites. A safe window for paracentesis was identified. Paracentesis Local anesthesia was administered. The peritoneal cavity was accessed and fluid return confirmed position. Ascites was drained. The catheter was then removed, and a sterile bandage was applied. Paracentesis access technique: Real-time ultrasound guidance Catheter placed: 5F Yueh Post-drainage ultrasound: No visible ascites Additional Details Additional description of procedure: None Equipment details: None Specimens removed: Abdominal fluid Estimated blood loss (mL): Less than 10 Standardized report: [email or web address] Attestation Signer name: Latrell Ureña MD I attest that I was present for the entire procedure. I reviewed the stored images and agree with the report as written. Signed by: Latrell Ureña MD on 07/23/2020 4:24 PM
[2020-07-23 17:13] LABS: LYMPHOCYTES,BODY FLUID 23 %; MONO/MACROPHG,BODY FLUID 58 %; NEUTROPHILS,BODY FLUID 7 %; OTHER CELLS,BODY FLUID 12 %
[2020-07-23 17:23] LABS: BODY FLUID APPEARANCE SL.CLOUDY; BODY FLUID COLOR YELLOW; BODY FLUID TYPE PERITONEAL
== END ==
LOC: US 13:09
PROVIDERS: ATTEND Internal Medicine Gastroenterology
DX: K72.90 Hepatic failure, unspecified without coma (principal)
CPT/HCPCS: 36415; 49083; 82040; 84157; 87070; 87205; 88112; 88305; 89051

== ENCOUNTER 2020-08-09 15:48 | Inpatient (IN) | payer SELFPAY ==
[~2020-08-09] VITALS: Ht 185.4 cm; Wt 86.6 kg
--- OUTSIDE RECORDS SUMMARY | 2020-08-09 16:36 | XMS REPORT | Clinical Summary ---
Author Author [facility]SH[facility]IGH [facility] Address Unknown Phone Unavailable Care Team Providers Care Automotive Technology Instructor Name Role Phone Mary Jane Carr PCP [...] Hepatology Grisel Mcfadden MA 01/25/2020 Abstract Hepatology Kelsy Carpio Rec CD (Rec 1 CD[facility] att[facility]illaume Arzola[facility] 01/24/2020 Telephone Hepatology after 08/09/2019 Social History Date Tobacco Use Types Packs/Day [...] Ascites due to alcoholic cirrhosis (HCC) after 08/09/2019 Results * CBC with platelet count + automated diff (04/05/2020 11:17 AM CDT) WBC 6.0 3.5 - 10.5 K/L [facility] RBC 2.98 (L) 4.63 - 6.08 M/L [facility] Hemoglobin 10.1 (L) 13.7 - 17.5 GM/DL [facility] Hematocrit 30.0 (L) 40.1 - 51.0 % [facility] MCV 100.7 (H) 79.0 - 92.2 fL [facility] MCH 33.9 (H) 25.7 - 32.2 pg [facility] MCHC 33.7 32.3 - 36.5 GM/DL [facility] RDW 14.3 11.6 - 14.4 % [facility] Platelets 116 (L) 150 - 450 K/CU MM [facility] MPV 8.5 (L) 9.4 - 12.4 fL [facility] nRBC 0 0 - 0 /100 WBC [facility] % Neutros 56 % [facility] % Lymphs 32 % [facility] % Monos 6 % [facility] % Eos 4 % [facility] % Baso 1 % [facility] # Neutros 3.32 1.78 - 5.38 K/L [facility] # Lymphs 1.93 1.32 - 3.57 K/L [facility] # Monos 0.38 0.30 - 0.82 K/L [facility] # Eos 0.26 0.04 - 0.54 K/L [facility] # Baso 0.08 0.01 - 0.08 K/L [facility] Immature 0 0 - 1 % [facility] Granulocytes-[facility] Specimen Blood Performing Organization Address City/State/Zipcode Ph one Number [address] [facility] * Alpha fetoprotein (AFP), tumor marker (04/05/2020 11:17 AM CDT) Alpha-Fetoprotein 6.6 <10.0 ng/mL [facility] Specimen Blood Narrative Performed At Business Support Administrator ID - CAROLINA F [facility] Performing Organization Address City/[facility] Ph one Number [place] [address] [facility] * Hepatic function panel (04/05/2020 11:17 AM CDT) Protein, Total 7.4 6.0 - 8.3 gm/dL [facility] Albumin 3.6 3.5 - 5.0 g/dL [facility] Total Bilirubin 3.9 (H) 0.2 - 1.2 mg/dL [facility] Bilirubin, Direct 1.7 (H) 0.1 - 0.5 mg/dL [facility] Alkaline Phosphatase 182 (H) 40 - 150 U/L [facility] AST 41 (H) 5 - 34 U/L [facility] ALT 17 6 - 55 U/L [facility] Specimen Blood Narrative Performed At Business Support Administrator ID - ENEIDA F [facility] Specimen slightly icteric [facility] Performing Organization Address [facility] Ph one Number [place] [phone] [place] [address] * Basic Metabolic Panel (04/05/2020 11:17 AM CDT) Sodium 131 (L) 136 - 145 meq/L [facility] Potassium 4.3 3.5 - 5.1 meq/L [facility] Chloride 98 98 - 107 meq/L [facility] CO2 24 22 - 29 meq/L [facility] BUN 9 7 - 21 mg/dL [facility] Creatinine 0.81 0.57 - 1.25 mg/dL [facility] Glucose 108 (H) 70 - 105 mg/dL [facility] Calcium 9.4 8.4 - 10.2 mg/dL [facility] EGFR 97Comment: ESTIMATED GFR IS mL/min/1.73 sq m [facility] NOT ACCURATE CREATININE [facility] CLEARANCE IN PREDICTING GLOMERULAR FILTRATION RATE. ESTIMATED GFR IS NOT APPLICABLE FOR DIALYSIS PATIENTS. Specimen Blood Narrative Performed At Business Support Administrator ID - CAROLINA F [facility] Specimen slightly icteric [facility] Performing Organization Address City/[facility] Ph one Number [facility] [address] [place], [place] [address] [facility] * Pro-time/INR (04/05/2020 11:16 AM CDT) Protime 14.6 (H) 11.9 - 14.2 seconds [facility] INR 1.2 <=5.9 [facility] Specimen Blood Narrative Performed At Effective 04/26/2019: PT Reference Range Change [facility] New: 11.9-14.2Previous: 11.7-14.7 [facility] MEDICAL CE NTER RECOMMENDED COUMADIN/WARFARIN INR THERA PY RANGES STANDARD DOSE: 2.0-3.0Includes: PRO PHYLAXIS for venous thrombosis, systemic embolization; TREATMENT for venous thro mbosis and/or pulmonary embolus. HIGH RISK: Target INR is 2.5-3.5 for pa tients wiht mechanical heart valves. Performing Organization Address City/[facility] Ph one Number [address] [facility] after 08/09/2019 Insurance Payer Benefit Subscriber ID Type Phone Address Plan / Group [employer] xxxxxxxxx PPO PPO [phone] [id number] [facility] [place] [address]
--- OUTSIDE RECORDS SUMMARY | 2020-08-09 16:36 | XMS REPORT | Continuity of Care Document ---
Author Author [facility] t Organization [facility] Address [address] [place] [address] Phone Unavailable Care Team Providers Care Appointment Coordinator Name Role Phone Mary Jane Carr PCP Unavailable ANATOLY, VINEET Attphys Unavailable Law, R Heena Attphys Unavailable Tin ABRAMS, Donny Galarza Attphys Grisle Mcfadden MA Attphys Unavailable Vinny HAWKINS, Kitty Thorpe Attphys Shelby ABRAMS, Destiny Dangelo Attphys Richard ABRAMS, Beto Flor Attphys Destiny GARCIA Attphys Unavailable Jenifer, Ness Attphys Unavailable Amada Marquez MA, Karen Attphys Unavailable Mini CHARLTON, Jackie Attphys Unavailable Grant MD, Nilson Diehl Attphys Bryn ABRAMS, Jyoti Ferreira Nickolas Attphys [phone] Eva ABRAMS, Clinton Reddy Attphys Penny ABRAMS, Leila Allen Attphys Ifeoma ABRAMS, Tahir Attphys Kelsy Carpio Attphys Unavailable BRYN, NICKOLAS Admphys Unavailable Payers Payer Name Policy Type Policy Number Effective Date Expiration Date S ource MULTIPLAN BCE EMERGISMULTIPLAN PPOxxxxxxxxxPPO xxxxxxxxx [facility] Problems Condition Name Condition Details Condition Category Status Onset Date Resolution Date Last Treatment Date Treating Clinician Comments Source Alcoholic cirrhosis of liver with ascites Alcoholic ci rrhosis of liver with ascites Disease Active 2020-04-05 00:00:00 [facility] Portal hypertension Portal hypertension Disease Active 2020-04-05 [facility] due to alcoholic cirrhosis Ascites due to alcoholic cirr hosis Disease Active 2020-04-05 00:00:00 [facility] H/O esophageal varices H/O esophageal varices Disease Active 2020-04-05 00:00:00 [facility] Screening for endocrine, metabolic and immunity disord er Screening for endocrine, metabolic and immunity disorder Disease Active 2020-04-05 00:00:00 [facility] Acute blood loss anemia Acute blood loss anemia Disease Active 2020-01-27 00:00:00 Scooby hernandez Iron deficiency anemia due to chronic blood loss Iron deficiency anemia due to chronic blood loss Disease Active 2020-01-27 00:00:00 Overview: Added automatically from request for surgery [id number] [facility] Allergies, Adverse Reactions, Alerts This patient has no known allergies or adverse reactions. Family History Family Member Diagnosis Comments Start Date Stop Date Source Natural brother Pulmonary fibrosis H gerson De Anda Natural father Alcohol abuse Scooby De Anda Maternal grandfather Heart disease H gerson De Anda Maternal grandfather Kidney disease Scooby De Anda Natural mother Arthritis [facility] thodist Social History Social Habit Start Date [...] Take 20 mg by mouth daily . [facility] FUROSEMIDE ORAL 2020-04-05 10:35:49 Yes 60 mg Take 60 mg by mouth daily . [facility] FOLIC ACID ORAL 2020-04-05 10:35:48 Yes 1m g Take 1 mg by mouth daily . [facility] thiamine 100 MG tablet 2020-04-05 10:35:48 Yes 100mg QD Take 100 mg by mouth daily daily . [facility] MULTIVITAMIN ORAL 2020-04-05 10:35:48 Yes Ta ke by mouth daily . [facility] SPIRONOLACTONE ORAL 2020-04-05 10:35:48 Yes 150mg Take 150 mg by mouth daily . [facility] lansoprazole (PREVACID ORAL) 2020-04-05 10:35:48 Yes 40mg Take 40 mg by mouth daily . [facility] furosemide (LASIX) 40 mg tablet 2020-01-31 [...] tablet 2020-01-30 00:00:00 202 23:59:00 No 10mg Q.[id number] Take 1 ta blet (10 mg total) [...] Systolic blood pressure 2020-04-05 10:16:00 100 mm[Hg] [facility] Diastolic blood pressure 2020-04-05 10:16:00 55 mm[Hg] [facility] Heart rate 2020-04-05 10:16:00 66 /min [facility] Body temperature 2020-04-05 10:16:00 37.06 Bhumika [facility] Respiratory rate 2020-04-05 10:16:00 16 /min [facility] Body height 2020-04-05 10:16:00 180.8 cm [facility] Body weight Measured 2020-04-05 10:16:00 81.693 kg [facility] BMI 2020-04-05 10:16:00 24.98 kg/m2 [facility] Oxygen saturation in Arterial blood by Pulse oximetry 04-05 10:16:00 100 /min [facility] r Systolic blood pressure 2020-01-30 07:53:20 109 mm[Hg] Scooby [facility] Anda Diastolic blood pressure 2020-01-30 07:53:20 58 mm[Hg] Scooby De [facility]a Heart rate 2020-01-30 07:53:20 72 /min Sc[facility]oby [facility] Body temperature 2020-01-30 07:53:20 36.44 Bhumika [facility] Respiratory rate 2020-01-30 07:53:20 20 /min [facility] Oxygen saturation in Arterial blood by Pulse oximetry 01-29 07:53:20 98 /min [facility] Body weight 2020-01-29 06:40:00 90.765 kg [facility] BMI 2020-01-29 06:40:00 26.40 kg/m2 [facility] Body height 2020-01-27 17:19:04 185.4 cm Scooby De Anda Procedures Procedure Date / Time Performed Performing Clinician [facility] e BASIC METABOLIC PANEL (7) 2020-04-05 11:17:00 Antolin Garcia [facility] HEPATIC FUNCTION PANEL 2020-04-05 11:17:00 Antolin Garcia [facility] ALPHA FETOPROTEIN (AFP), TUMOR MARKER 2020-04-05 11:17:00 Antolin Garcia [facility] CBC W/PLT COUNT & AUTO DIFFERENTIAL 2020-04-05 11:17:00 Bora Garcia [facility] PROTHROMBIN TIME/INR 2020-04-05 11:16:00 Antolin Garcia [facility] BASIC METABOLIC PANEL 2020-01-30 06:57:00 Barry [...] WITH INR 2020-01-29 06:38:00 Nickolas Clemente mmad Mandaen ESTIMATED GFR 2020-01-29 06:38:00 Nickolas Clemente SMEAR REVIEW 2020-01-29 06:38:00 Bryn Nickolas Jyoti Almodovar Mandaen TRANSFUSE RED BLOOD CELLS 2020-01-28 20:34:34 Eva Hersonbrenda De Anda TRANSFUSE RED BLOOD CELLS 2020-01-28 17:06:42 Eva Hersonbrenda Peña stallings Scooby Mandaen ALBUMIN, MISC FLUID 2020-01-28 12:41:00 Eva Hesronbrenda Pompahaylie Corinna stokes Mandaen CYTOLOGY (NON-GYNECOLOGICAL) REQUEST 2020-01-28 12:40:00 Epi Darbyed Jyoti Almodovar Mandaen US ABDOMINAL PARACENTESIS IMAGING 2020-01-28 12:38:13 Eva Nany hayden Clinton De Anda HC COMPLETE BLD COUNT W/AUTO DIFF 2020-01-28 06:32:00 Zaki Rae BASIC METABOLIC PANEL 2020-01-28 06:32:00 Dominga Rae ESTIMATED GFR 2020-01-28 06:32:00 Dominga Rae on Mandaen SMEAR REVIEW 2020-01-28 06:32:[address] ABDOMEN PELVIS WO CONTRAST 2020-01-27 21:19:19 Guerita Rae OCCULT BLOOD, STOOL 2020-01-27 16:00:00 Fazal Grant AMMONIA LEVEL 2020-01-27 14:28:00 Fazal Grant Mandaen PROTHROMBIN TIME WITH INR 2020-01-27 14:22:00 Laurel Henley PARTIAL THROMBOPLASTIN TIME (PTT) 2020-01-27 14:22:00 Laurel Stuart HC COMPLETE BLD COUNT W/AUTO DIFF 2020-01-27 13:15:00 Fazal Grant BASIC METABOLIC PANEL 2020-01-27 13:15:00 Fazal Grant ESTIMATED GFR 2020-01-27 13:15:00 Fazal Grant Mandaen SMEAR REVIEW 2020-01-27 13:15:00 Fazal Grant Mandaen HEMOGLOBIN A1C 2020-01-27 13:15:00 Dominga Rae on Mandaen LIPID PANEL 2020-01-27 13:15:00 Dominga Rae on Mandaen B NATRIURETIC PEPTIDE 2020-01-27 13:15:00 Dominga Rae Al[facility]ada Mandaen PREPARE RBC 2020-01-27 13:15:00 Barry Velasquez [facility] Plan of Care Planned Activity Planned Date Details Comments Source Future Scheduled Test 2025-01-26 00:00:00 Lipid panel (proce dure) [code = 31585197] [facility] Future Scheduled Test 2020-08-29 00:00:00 INFLUENZA VACCINE [code = INFLUENZA VACCINE] [facility] Scheduled Test 2020-07-30 00:00:00 INFLUENZA VACCINE (#1) [code = INFLUENZA VACCINE (#1)] [facility] Future Scheduled Test 2007 00:00:00 COLONOSCOPY SCREEN ING [code = COLONOSCOPY SCREENING] [facility] Scheduled Test 2007 00:00:00 SHINGLES VACCINES (#1) [code = SHINGLES VACCINES (#1)] [facility] Scheduled Test 1963 00:00:00 PNEUMOCOCCAL VACCI NE 2-64 YEARS AT RISK (1 of 1 - PPSV23) [code = PNEUMOCOCCAL VACCINE 2-64 YEARS AT RISK (1 of 1 - PPSV23)] [facility] Future Scheduled Test 1955 00:00:00 Screening for radha gnant neoplasm of colon (procedure) [code = 592073022] [facility] Encounters Start Date/Time End Date/Time Encounter Type Admission Type [facility] Care Department Encounter ID Source 2020-01-27 00:00:00 2020-01-30 00:00:00 Inpatient [facility] 064 [id number] Al[facility] Mandaen Results Test Description Test Time Test Comments Results Result Comments Source US GUIDED PARACENTESIS 2020-07-23 16:24:00 [facility] [address] [place] [address] Patient Name: GUILLERMO SCHROEDER MR #: [id number] : 1955 Age/Sex: 65/M Re #: [id number] [facility] Physician: Ordered by: VINEET LEDBETTER MD Report #: [id number] Location: Room/Bed: Procedure: [id number] US/US GUIDED PARACENTESIS Exam Date: 07/23/20 Exam Time: 1349 REPORT STATUS: Signed PROCEDURE: Ultrasound-guided paracentesis Procedural Personnel Attending physician(s): Donavon العراقي MD Pre-procedure diagnosis: Cirrhosis, ascites Post-procedure diagnosis: Same Indication: Ascites with pain or pressure symptoms Additional clinical h istory: None Complications: No immediate complications. IMPRESSION: [place] [address] mL of serous fluid. Plan: Resume care [...] technique: Real-time ultrasound guidance Catheter placed: 5F Berthaeh Post-drainage ultrasound: No visible ascites Additional Details Additional description of procedure: None Equipment details: None Specimens removed: Abdominal fluid Estimated blood loss (mL): Less than 10 Standardized report: SIR_Paracentesis_v3 Attestation Signer name: Donavon العراقي MD I attest that I was present for the entire procedure. I reviewed the stored images and agree with the report as written. Signed by: Donavon العراقي MD on 07/23/2020 4:24 PM Dictated By: DONAVON العراقي MD 23 Transcribed By: TRINH on 07/23/201623 COPY TO: VINEET LEDBETTER MD US GUIDED PARACENTESIS 2020-06-19 14:04:00 [place] [address] Patient Name: GUILLERMO SCHROEDER MR #: [id number] : 1955 Age/Sex: 64/M Req #: [id number] Adm Physician: Ordered by: VINEET LEDBETTER MD Report #: [id number] Location: Room/Bed: Procedure: [id number] US/US GUIDED PARACENTESIS Exam Date: 06/19/20 Exam Time: 1223 REPORT STATUS: Signed PROCEDURE: Ultrasound-guided paracentesis Procedural Personnel Attending physician(s): Donavon العراقي MD Pre-procedure diagnosis: Cirrhosis, ascites Post-procedure diagnosis: Same Indication: Ascites with pain or pressure symptoms Additional clinical h istory: None Complications: No immediate complications. IMPRESSION: Ultrasound[place] [address] mL of serous fluid. Plan: Resume care [...] technique: Real-time ultrasound guidance Catheter placed: 5F Berthaeh Post-drainage ultrasound: Not performed Additional Details Additional [...] 2:04 PM Dictated By: DONAVON العراقي MD 1402 Transcribed By: TRINH on 06/19/20 1403 COPY TO: VINEET LEDBETTER MD US GUIDED PARACENTESIS 2020-05-20 16:03:00 [place] [address] Patient Name: GUILLERMO SCHROEDER MR #: [id number] : 1955 Age/Sex: 64/M Req #: [id number] Adm Physician: Ordered by: VINEET LEDBETTER MD Report #: [id number] Location: Room/Bed: Procedure: [id number] US/US GUIDED PARACENTESIS Exam Date: 05/20/20 Exam Time: 1437 REPORT STATUS: Signed US Guided Paracentesis. History: Recurrent ascites. Request for paracentesis. Warehouse Stocker: Brenton Senior MD. Physicians And Surgeons: None. Modality: Ultrasonography Sedation: None. Anesthesia: Lidocaine [...] 4:04 PM Dictated By: BRENTON SENIOR MD 03 Transcribed By: TRINH on 05/20/201603 COPY TO: VINEET LEDBETTER MD Alpha fetoprotein (AFP), tumor marker 2020-04-05 12:19:00 Test Item Alpha-Fetoprotein (test code = 1834-1) 6.6 ng/mL <10.0 MORIS (test code = MORIS) Optical Lathe Operator ID Shannon MONIQUE F Lab Interpretation (test code = 58718-1) [facility] TUMOR [id number] 12:19:00* Test Item Value Reference Range Interpretation Comments ALPHA-FETOPROTEIN (BEAKER) (test code = 1094) 6.6 ng/mL <10.0 Optical Lathe Operator ID Shannon MONIQUE FBasic Metabolic Eeetu1702-93-70 11:59:00* Test Item Value Reference Range Interpretation [...] mg/dL 70-105 H Calcium (test code = 90206-8) 9.4 mg/dL 8.4-10.2 EGFR (test code = 99405-7) 97 mL/min/1.73 sq m ESTIMATED GFR IS NOT ACCURATE CREATININE CLEARANCE IN PREDICTING GLOMERULAR FILTRATION RATE. ESTIMATED GFR IS NOT APPLICABLE FOR DIALYSIS PATIENTS. MORIS (test code = MORIS) Optical Lathe Operator ID Shannon MONIQUE FSpecimen slightly ict ivelisse Lab Interpretation (test code = 61786-4) Abnormal [facility] function rkpmi5475-95-09 11:59:00* Test Item Value Reference Range Interpretation Comments Protein, Total (test code = 2885-2) 7.4 6.0- 8.3 gm/dL Albumin (test code = 09405-8) 3.6 g/dL 3.5-5 Total Bilirubin (test code = 1974-2) 3.9 mg/dL 0.2-1.2 H Bilirubin, Direct (test code = 1968-7) 1.7 mg/dL 0.1-0.5 H Alkaline Phosphatase (test code = 6768-6) 182 U/L 40-150 H AST (test code = 1920-8) 41 U/L 5-34 H ALT (test code = 1742-6) 17 U/L 6-55 MORIS (test code = MORIS) Optical Lathe Operator ID - ENEIDA FLORESpecimen slightly ict ivelisse Lab Interpretation (test code = 41598-5) [facility]normal [facility] [id number] 11:59:00* Test Item Value Reference Range Interpretation [...] GFR IS NOT APPLICABLE FOR DIALYSIS PATIENTS. Optical Lathe Operator ID - ENEIDA FLORESpecimen slightly ictericHEPATIC FUNCTION PANEL 2020-04-05 11:59:00* [...] (test code = 347) 17 U/L 6-55 Optical Lathe Operator ID - ENEIDA FSpecimerodrigo slightly ictericPro-time/FUE3783-62-58 11:49:00 * Test Item Value Reference Range [...] heart valves. Lab Interpretation (test code = 50980-5) Abnormal [facility]PROT[facility]OMBIN TIME/[id number] 11:49:00* Test Item Value Reference Range Interpretation [...] K/CU MM L MPV (test code = 38545-3) 8.5 fL 9.4-12.4 L nRBC (test code [...] % 0-1 Lab Interpretation (test code = 75579-9) Abnormal [facility] W/PLT COUNT & AUTO [id number] 11:43:00* Test Item Value Reference Range Interpretation [...] = 2801) 0 % 0-1 US GUIDED [id number] 10:25:00 [facility] [address] [place], [place] [address] Patient Name: GUILLERMO SCHROEDER MR #: [id number] : 1955 Age/Sex: 64/M Re #: [id number] [facility] Physician: Ordered by: VINEET LEDBETTER MD Report #: [id number] Location: Room/Bed: Procedure: [id number] US/U S GUIDED PARACENTESIS Exam Date: 03/21/20 Exam Time: 1405 REPORT STATUS: Signed PROC EDURE: Ultrasound-guided paracentesis Procedural Personnel [facility] Donavon العراقي MD Pre-procedure diagnosis: Cirrhosis, ascites Post -procedure diagnosis: Same Indication: Ascites with pain or pressure symptoms Additional clinical history: None Complications: No immediate complicatio ns. IMPRESSION: Ultrasound[place] [address] mL of serous fluid. Plan: Resume care [...] Real-time ultrasound guidance Catheter p laced: 5F Berthaeh Post-drainage ultrasound: Not performed Additional Details Additional [...] PY TO: VINEET LEDBETTER MD US ABDOMEN [id number] 20:14:00 [place] [address] Patient Name: GUILLERMO SCHROEDER MR #: [id number] : 1955 Age/Sex: 64/M Req #: [id number] Adm Physician: Ordered by: VINEET LEDBETTER MD Report #: [id number] Location: Room/Bed: Procedure: [id number] US/U S ABDOMEN COMPLETE Exam Date: 03/21/20 Exam Time: 15 07 REPORT STATUS: Signed EXAM: C omplete Abdominal Ultrasound INDICATION: [id number] ASCITE S COMPARISON: None. TECHNIQUE: Transverse [...] COPY TO: VINEET LEDBETTER MD Cytology (non-gynecological) bupbhci6486-45-20 14:43:01* Test Item Value Reference Range Interpretation Comments Case number (test code = 2503168) [id number] Cytology (non-gynecological) report (test code = 1178) See link below for PDF Lab Report Result status (test code = 9985636) This is Final Report for [id number] [facility] with platelet and jxghsjqroegm1281-87-09 08:14:12* Test Item Value Reference Range Interpretation Comments WBC (test code = 16645-5) 5.8 4.2- 11.0 k/uL RBC (test code = 69433-7) 2.86 m/uL 4.04-5.86 L HGB (test code = 718-7) 9.6 g/dL 13-17.3 L HCT (test code = 4544-3) 28.9 % 34-45 L MCV (test code = 787-2) 101.0 fL 80-98 H MCH (test code = 785-6) 33.6 pg 27-34 MCHC (test code = 786-4) 33.2 g/dL 31.5-36.5 RDW - SD (test code = 88044-9) 78.6 fL 37-51 H MPV (test code = 47624-8) 8.7 fL 7.4-10.4 Platelet count (test code = 07127-2) 82 150- 400 k/uL L Nucleated RBC (test code = 83725-8) 0.00 /100 WBC Neutrophils (test code = 46943-0) 59.0 % 36-66 Lymphocytes (test code = 79889-7) 36.0 % 24-44 Monocytes (test code = 05616-9) 5.0 % 0-6 Eosinophils (test code = 40277-5) 0.0 % 0-6 Basophils (test code = 62176-1) 0.0 % 0-1.2 Lab Interpretation (test code = 60762-1) Abnormal [facility] MethodistManual gfqkujfkfanv7646-64-22 08:14:12* Test Item Value Reference Range Interpretation Comments Manual differential (test code = 80262-3) PERFORMED Neutrophils (test code = 46297-9) 59.0 % 36-66 Lymphocytes (test code = 22202-9) 36.0 % 24-44 Monocytes (test code = 58794-4) 5.0 % 0-6 Eosinophils (test code = 81003-4) 0.0 % 0-6 Basophils (test code = 89545-5) 0.0 % 0-1.2 Metamyelocytes (test code = 740-1) 0 % 0-1 Promyelocytes (test code = 783-1) 0 % 0-1 Platelet slide review (test code = 35973-2) Decreased A Anisocytosis (test code = 702-1) slight Polychromasia (test code = 68746-9) slight Tear drop cells (test code = 7791-7) Occasional Schistocytes (test code = 800-3) rare Ovalocytes (test code = 774-0) Occasional Enlarged platelets (test code = 12723-1) Occasional Lab Interpretation (test code = 68601-6) Abnormal [facility] MethodistBasic metabolic cvous2957-62-15 08:01:22* Test Item Value Reference Range Interpretation Comments Sodium (test code = 2951-2) 134 135- 150 mEq/L L Potassium (test code = 2823-3) 3.5 3.5- 5.0 mEq/L Chloride (test code = 2075-0) 100 98- 112 mEq/L CO2 (test code = 8-9) 21 mmol/L 24-31 L Anion gap (test code = 76410-7) 13@ANIO 7- 15 mEq/L BUN (test code = 3094-0) 8 mg/dL 7-18 Creatinine (test code = 2160-0) 0.70 mg/dL 0.7-1.2 Glucose (test code = 2345-7) 106 mg/dL 65-100 H Calcium (test code = 91037-1) 8.1 mg/dL 8.8-10.2 L Lab Interpretation (test code = 39711-0) Abnormal [facility] MethodistEstimated [id number] 08:01:22* Test Item Value Reference Range Interpretation Comments Estimated GFR (test code = 5488) >=90 mL/min/1.73 m2 Catergory Units InterpretationG1 >=90 Normal or highG2 60-89 Mildly kzabjbbaqF6o 45-59 Mildly to moderately ebevcffubQ5q 30-44 Moderately to severely decreasedG4 15-29 Severely decreasedG5 <15 Kidney failureThe eGFR was calculated using the Chronic Kidney Disease Epidemiology Collaboration (CKD-EPI) equation. Interpretation is based on recommendations of the National Kidney Foundation-Kidney Disease Outcomes Quality Initiative (NKF-KDOQI) published in 2014. Scooby MethodistXR Ribs W Pa Chest Wbqi8233-20-53 10:22:57Hm Interface, Radiology Results 01/29/2020 10:26 AM CSTEXAMINATION: XR RIBS W PA CHEST LEFTCLINICAL HISTORY: fall painCOMPARISON: None.IMPRESSION:1.Bibasilar atelectasis. No pleural effusion. No pneumothorax or midline shift. No focal consolidation.2.The mediastinal contours and cardiac silhouette are un remarkable. Mild atherosclerotic3.There is an acute, nondisplaced posterior late ral seventh rib fracture.4.Otherwise the bony structures are unremarkable.[facility]-2 [id number] MethodistSmear fwjiwb8274-93-64 08:39:50* Test Item Value Reference Range Interpretation Comments Platelet slide review (test code = 56782-2) Decreased A Anisocytosis (test code = 702-1) 1+ Polychromasia (test code = 20869-4) 1+ Schistocytes (test code = 800-3) FEW Target cells (test code = 93544-6) FEW [place] cells (test code = 7790-9) FEW Lab Interpretation (test code = 32067-7) Abnormal [facility] CenterProth[facility]bin time with [id number] 07:20:47* Test Item Value Reference Range Interpretation Comments Prothrombin time (test code = 5902-2) 16.3 11.5- 14.5 sec H INR (test code = 54748-2) 1.30 Fo r patients on anticoagulant therapy, reference ranges below:Indication: INR ValueTreatment of Venous Thrombosis, 2.0-3.0pulmonary emboli, or prophylaxisof a venous thrombosis, or systemic emboli.High dose, high risk patients 3.0-4.5with mechanical valves.NOTE: INR values over 3.0 are sometimes associated withgastrointestinal hemorrhage, especially values over 4.0. Lab Interpretation (test code = 76207-4) Abnormal [facility]Album[facility], misc fcsbp4796-78-78 19:48:14* Test Item Value Reference Range Interpretation Comments Fluid type (test code = 54307-0) Paracentesis Albumin, fluid (test code = 1747-5) 0.8 g/dL The reference interval(s) and other method performance specifications have not been established for this body fluid. The test results must be integrated into the clinical context for interpretation.This test has been modified from the manufacturers instructions. The performance characteristics were determined by [facility] in a manner consistent with CLIA requirements. This test has not been cleared or approved by the U.S. Food and Drug Administration. [facility] CenterPrepare RBC, 2 [id number] 17:15:00* Test Item Value Reference Range Interpretation Comments Product name (test code = 25) Apheresis Red Cell AS3 #1 LR Unit number (test code = 8687814) [id number] Product code (test code = 3092) [id number] Dispense status (test code = 24) Transfused Blood expiration date (test code = 302) [id number] Blood type code (test code = 308) 600 Blood type (test code = 1314) A NEGATIVE Compatibility (test code = 6400) Compatible Alzada MethodmansoorUS Abdominal Paracentesis Kfproql8369-00-35 13:03:23Hm Interface, Radiology Results Incoming - 01/28/2020 1:06 PM CSTEXAMINATION: US ABDOMINAL PARACENTESIS IMAGINGCLINICAL HISTORY: ASCITESCOMPARISON:None.TECHNI QUE:The procedure's risks, benefits, and alternatives were discussed with the raad baez and written, informed consent was obtained.Using ultrasound guidance, a si te for needle entry was selected and the overlying skin was prepped and draped i n the usual sterile fashion. 1% buffered lidocaine was used for local anesthesia . A 5 Italian Catheter and Needle was inserted into the peritoneal cavity and 6.8 L of peritoneal fluid was removed. The patient tolerated the procedure without difficulty and was discharged to the radiology recovery area for monitoring prio r to discharge.EBL: None. COMPLICATIONS: None.SPECIMENS: As above.ASSISTANTS: No ne.IMPRESSION:Uncomplicated ultrasound-guided diagnostic and therapeutic paracen tesis.[facility] DRUMRIGHTJ-[id number] MethodistCT Abdomen Pelvis Wo Fnqqqddb9426-29-12 21:55:24Hm Interface, Radiology Results - 01/27/2020 9:58 PM CSTCT ABDOMEN PELVIS WO [...] of acute cholecystitis.4. Colonic diverticulosis without diverticuli tis.[facility]-0PS40274MYXjholic MethodistB natriuretic wlbynjs0307-72-80 16:17:45* Test Item Value Reference Range Interpretation Comments BNP (test code = 58040-1) 59 pg/mL 0-100 [facility] MethodistOccult blood, amxtg6965-28-57 16:11:29* Test Item Value Reference Range Interpretation Comments Occult blood, stool (test code = 2334-1) Negative for occult blood. Specimen InformationSpecimen Source: StoolSpecimen Site: Nonpreserved [facility] MethodistHemoglobin [id number] 16:02:48* Test Item Value Reference Range Interpretation Comments Hemoglobin A1C (test code = 26500-0) <4.7 4-5.6 HbA1c cutoffs for diagnosing diabetes:4.0% - 5.6% = normal5.7% - 6.4% = increased risk for diabetes (prediabetes)9>=6.5% = zxkdjmjz3Wmkib for glycemic control (ADA 2016)< 7.0% Target for non adults with diabetes. More or less stringent targets may be appropriate for individual patients. <7.5% Target for Children and adolescents with type 1 diabetes. [facility] MethodistLipid acwfr4270-46-95 15:42:03* Test Item Value Reference Range Interpretation Comments Cholesterol (test code = 2093-3) 209 mg/dL 0-199 H Triglycerides (test code = 2571-8) 102 mg/dL 0-149 HDL cholesterol (test code = 2085-9) 46 mg/dL 40-9999 LDL cholesterol (test code = 2089-1) 162 mg/dL 0-99 H Result obtained by direct LDL measurement Lipid panel interpretation (test code = 67192-9) See below Total Cholesterol (mg/dL) LDL Cholesterol [...] (>=200 mg/dL) Lab Interpretation (test code = 99852-8) Abnormal [facility] [id number] 14:55:35* Test Item Value Reference Range Interpretation Comments Ammonia (test code = 1841-6) 33 umol/L 16-60 [facility] MethodistPartial thromboplastin time, [id number] 14:47:54* Test Item Value Reference Range Interpretation Comments PTT (test code = 3173-2) 39.4 23.0- 36.0 sec H P TT therapeutic range for unfractionated heparin is61.0-112.0 seconds which corresponds to Anti-Xa0.3-0.7 U/ml. Lab Interpretation (test code = 15945-4) Abnormal [facility] and [id number] 14:28:00* Test Item Value Reference Range Interpretation Comments ABO grouping (test code = 883-9) A Rh type (test code = 91376-6) NEG Antibody screen (gel) (test code = 890-4) NEG [place] [facility] GUIDED [id number] 10:41:00 [facility] [address] [address] Patient Name: GUILLERMO SCHROEDER MR #: [id number] : 1955 Age/Sex: 64/M Req #: [id number] Adm Physician: Ordered by: VINEET LEDBETTER MD Report #: [id number] Location: Room/Bed: Procedure: [id number] US/U S GUIDED PARACENTESIS Exam Date: 12/28/19 Exam Time: 0838 REPORT STATUS: Signed PROC EDURE: Ultrasound-guided paracentesis Procedural Personnel Attending [facility] [place]ilo(s): Donavon العراقي MD Pre-procedure diagnosis: Cirrhosis, ascites [...] 10:42 AM Dictated By: DONAVON العراقي MD 104 Transcribed By: TRINH on 12/28/191041 COPY TO: VINEET LEDBETTER MD
--- OUTSIDE RECORDS SUMMARY | 2020-08-09 16:36 | XMS REPORT | Clinical Summary ---
Author Author [employer] [employer] [facility] [employer] Address Unknown Phone Unavailable Care Team Providers Care Solar Energy Specialist Name Role Phone Mary Jane Carr PCP [...] Added automatically from request for pete oliveira [phone] Encounters Care Team Description Date Type Specialty Jackie Morse MA 01/31/2020 Telephone Gastroenterology BaTiffany washburn MD Su, Young, MD 01/29/2020 Anesthesia Gastroenterology Event Barry Velasquez MD ESOPHAGOGASTRODUODENOSCOPY (EGD) 01/29/2020 Surgery Gastroenterology Grant, MD Henry Mcgovern Syed Muhammad Javed, MD Iron deficiency anemia due to chronic bl ood loss (Primary Dx); Acute blood loss anemia; Acute GI bleeding; Hypokalemia; Hyponatremia 01/27/2020 [facility] Internal Pr dicine - Encounter 01/30/2020 after 08/09/2019 Family History Medical History Relation Name Comments [...] Comments Vital Sign 109/58 01/30/2020 7:53 AM PERFORMANCE ANALYST Blood Pressure 72 01/30/2020 7:53 AM PERFORMANCE ANALYST Pulse 36.4 C (97.6 F) 01/30/2020 7:53 AM PERFORMANCE ANALYST Temperature 20 01/30/2020 7:53 AM PERFORMANCE ANALYST Respiratory Rate 98% 01/30/2020 7:53 AM PERFORMANCE ANALYST Oxygen Saturation - - Inhaled Oxygen Concentration 90.8 kg (200 lb 1.6 oz) 01/29/2020 6:40 AM PERFORMANCE ANALYST Weight 185.4 cm (6' 1") 01/27/2020 5:19 PM PERFORMANCE ANALYST Height 26.4 01/27/2020 5:19 PM PERFORMANCE ANALYST Body Mass Index Plan of Treatment Health Maintenance Due Date Last Done Comments COLONOSCOPY SCREENING 2007 SHINGLES VACCINES (#1) 2007 INFLUENZA VACCINE 08/29/2020 Procedures Comments Procedure Name Priority Date/Time Associated Diag nosis MANUAL DIFFERENTIAL Routine 01/30/2020 6:57 AM PERFORMANCE ANALYST ESTIMATED GFR Routine 01/30/2020 6:57 AM PERFORMANCE ANALYST CBC WITH PLATELET AND Routine 01/30/2020 DIFFERENTIAL 6:57 AM PERFORMANCE ANALYST BASIC METABOLIC PANEL Routine 01/30/2020 6:57 AM PERFORMANCE ANALYST ESOPHAGOGASTRODUODENOSCOP 01/29/2020 Iron defici ency anemia Y (EGD) 12:09 PM PERFORMANCE ANALYST due to chronic bloo d loss XR RIBS W PA CHEST LEFT Routine 01/29/2020 10:18 AM PERFORMANCE ANALYST SMEAR REVIEW Routine 01/29/2020 6:38 AM PERFORMANCE ANALYST ESTIMATED GFR Routine 01/29/2020 6:38 AM PERFORMANCE ANALYST PROTHROMBIN TIME WITH INR Routine 01/29/2020 6:38 AM PERFORMANCE ANALYST HC COMPLETE BLD COUNT Routine 01/29/2020 W/AUTO DIFF 6:38 AM PERFORMANCE ANALYST BASIC METABOLIC PANEL Routine 01/29/2020 6:38 AM PERFORMANCE ANALYST TRANSFUSE RED BLOOD CELLS Routine 01/28/2020 8:34 PM PERFORMANCE ANALYST TRANSFUSE RED BLOOD CELLS Routine 01/28/2020 5:06 PM PERFORMANCE ANALYST ALBUMIN, MISC FLUID Routine 01/28/2020 12:41 PM PERFORMANCE ANALYST CYTOLOGY Routine 01/28/2020 (NON-GYNECOLOGICAL) 12:40 PM PERFORMANCE ANALYST REQUEST US ABDOMINAL PARACENTESIS STAT 01/28/2020 IMAGING 12:38 PM PERFORMANCE ANALYST SMEAR REVIEW Routine 01/28/2020 6:32 AM PERFORMANCE ANALYST ESTIMATED GFR Routine 01/28/2020 6:32 AM PERFORMANCE ANALYST BASIC METABOLIC PANEL Routine 01/28/2020 6:32 AM PERFORMANCE ANALYST HC COMPLETE BLD COUNT Routine 01/28/2020 W/AUTO DIFF 6:[address] ABDOMEN PELVIS WO STAT 01/27/2020 CONTRAST 9:19 PM PERFORMANCE ANALYST OCCULT BLOOD, STOOL Routine 01/27/2020 4:00 PM PERFORMANCE ANALYST AMMONIA LEVEL STAT 01/27/2020 2:28 PM PERFORMANCE ANALYST PARTIAL THROMBOPLASTIN STAT 01/27/2020 TIME (PTT) 2:22 PM PERFORMANCE ANALYST PROTHROMBIN TIME WITH INR STAT 01/27/2020 2:22 PM PERFORMANCE ANALYST PREPARE RBC Routine 01/27/2020 1:15 PM PERFORMANCE ANALYST B NATRIURETIC PEPTIDE Routine 01/27/2020 1:15 PM PERFORMANCE ANALYST LIPID PANEL Routine 01/27/2020 1:15 PM PERFORMANCE ANALYST HEMOGLOBIN A1C Routine 01/27/2020 1:15 PM PERFORMANCE ANALYST SMEAR REVIEW STAT 01/27/2020 1:15 PM PERFORMANCE ANALYST ESTIMATED GFR STAT 01/27/2020 1:15 PM PERFORMANCE ANALYST TYPE AND SCREEN Routine 01/27/2020 1:15 PM PERFORMANCE ANALYST BASIC METABOLIC PANEL STAT 01/27/2020 1:15 PM PERFORMANCE ANALYST HC COMPLETE BLD COUNT STAT 01/27/2020 W/AUTO DIFF 1:15 PM PERFORMANCE ANALYST after 08/09/2019 Results * Estimated GFR (01/30/2020 6:57 AM PERFORMANCE ANALYST) Only the most recent of 4 results within the time period is included. Estimated GFR >=90 mL/min/1.73 m2 [place] Comment: DENOMINATIONAL Catergory Units [facility] G1 >=90 Normal or high G2 [...] Performing Organization Address City/State/Zipcode Ph one Number [facility] [place] [address] PATHOLOGY AND GENOMIC MEDICINE [place] [facility] [address] [place] [address] HOSPITAL * Manual differential (01/30/2020 6:57 AM PERFORMANCE ANALYST) Pathologist [facility] Manual PERFORMED [place] differential [facility] Neutrophils 59.0 36.0 - 66.0 % [facility] Lymphocytes 36.0 24.0 - 44.0 % [facility] Monocytes 5.0 0.0 - 6.0 % [facility] Eosinophils 0.0 0.0 - 6.0 % [facility] Basophils 0.0 0.0 - 1.2 % [facility] Metamyelocytes 0 0 - 1 % [facility] Promyelocytes 0 0 - 1 % [facility] Platelet slide Decreased (A) [place] review [facility] Anisocytosis slight [facility] Polychromasia slight [facility] Tear drop cells Occasional [facility] Schistocytes rare [facility] Ovalocytes Occasional [facility] Enlarged Occasional [facility] Specimen Performing Organization Address City/State/Zipcode Ph one Number [facility] DEPARTMENT OF [facility] [place] [address] PATHOLOGY AND GENOMIC MEDICINE [address] * CBC with platelet and differential (01/30/2020 6:57 AM PERFORMANCE ANALYST) Only the most recent of 4 results within the time period is included. WBC 5.8 4.2 - 11.0 k/uL [facility] RBC 2.86 (L) 4.04 - 5.86 m/uL [facility] HGB 9.6 (L) 13.0 - 17.3 g/dL [facility] HCT 28.9 (L) 34.0 - 45.0 % [facility] MCV 101.0 (H) 80.0 - 98.0 fL [facility] MCH 33.6 27.0 - 34.0 pg [facility] MCHC 33.2 31.5 - 36.5 g/dL [facility] RDW - SD 78.6 (H) 37.0 - 51.0 fL [facility] MPV 8.7 7.4 - 10.4 fL [facility] Platelet count 82 (L) 150 - 400 k/uL [facility] Nucleated RBC 0.00 /100 WBC [facility] Neutrophils 59.0 36.0 - 66.0 % [facility] Lymphocytes 36.0 24.0 - 44.0 % [facility] Monocytes 5.0 0.0 - 6.0 % [facility] Eosinophils 0.0 0.0 - 6.0 % [facility] Basophils 0.0 0.0 - 1.2 % [facility] Specimen Blood Performing Organization Address City/[facility] Ph one Number [facility] DEPARTMENT OF [address] [place] [address] PATHOLOGY AND GENOMIC MEDICINE [address] * Basic metabolic panel (01/30/2020 6:57 AM PERFORMANCE ANALYST) Only the most recent of 4 results within the time period is included. Sodium 134 (L) 135 - 150 mEq/L [facility] Potassium 3.5 3.5 - 5.0 mEq/L [facility] Chloride 100 98 - 112 mEq/L [facility] CO2 21 (L) 24 - 31 mmol/L [facility] Anion gap 13@ANIO 7 - 15 mEq/L [facility] BUN 8 7 - 18 mg/dL [facility] Creatinine 0.70 0.70 - 1.20 mg/dL [facility] Glucose 106 (H) 65 - 100 mg/dL [facility] Calcium 8.1 (L) 8.8 - 10.2 mg/dL [facility] Specimen Plasma specimen Performing Organization Address City/[facility]/Zipcode Ph one Number [facility] DEPARTMENT OF [address] [place] [address] PATHOLOGY AND GENOMIC MEDICINE [facility] [address] [place] [address] HOSPITAL * XR Ribs W Pa Chest Left (01/29/2020 10:18 AM PERFORMANCE ANALYST) Specimen Narrative Performed At EXAMINATION: XR RIBS W PA CHEST LEFT [facility] CLINICAL HISTORY: fall pain COMPARISON: None. IMPRESSION: 1.Bibasilar atelectasis. No pleural eff usion. No pneumothorax or midline shift. No focal consolidation. 2.The mediastinal contours and cardiac silhouette are unremarkable. Mild atherosclerotic 3.There is an acute, nondisplaced poste rior lateral seventh rib fracture. 4.Otherwise the bony structures are unr emarkable. [facility]-[id number] Procedure Note Hm Interface, Radiology Results Incoming - 01/29/2020 10:26 AM PERFORMANCE ANALYST EXAMINATION: XR RIBS W PA CHEST LEFT CLINICAL HISTORY: fall pain COMPARISON: None. IMPRESSION: 1.Bibasilar atelectasis. No pleural effu kvng. No pneumothorax or midline shift. No focal consolidation. 2.The mediastinal contours and cardiac s ilhouette are unremarkable. Mild atherosclerotic 3.There is an acute, nondisplaced mobile product manager ior lateral seventh rib fracture. 4.Otherwise the bony structures are unre markable. [facility]-[id number] Performing Organization Address City/[facility] Ph one Number [facility] [address] [place] [address] * Smear review (01/29/2020 6:38 AM PERFORMANCE ANALYST) Only the most recent of 3 results within the time period is included. Platelet slide Decreased (A) [place] review [facility] Anisocytosis 1+ [facility] Polychromasia 1+ [facility] Schistocytes FEW [facility] Target cells FEW [facility] Muscadine cells FEW [facility] Specimen Performing Organization Address City/State/[facility] Ph one Number [facility] DEPARTMENT OF [address] [place] [id number] PATHOLOGY AND GENOMIC MEDICINE [facility] [address] [place] [address] HOSPITAL * Prothrombin time with INR (01/29/2020 6:38 AM PERFORMANCE ANALYST) Only the most recent of 2 results within the time period is included. Prothrombin 16.3 (H) 11.5 - 14.5 sec [facility] INR 1.30 [place] Comment: DENOMINATIONAL [facility], reference ranges [facility]OS[facility]ITAL below: Indication: INR Value Treatment of Venous Thrombosis, 2.0-3.0 pulmonary emboli, or prophylaxis of a venous thrombosis, or systemic emboli. High dose, high risk patients 3.0-4.5 with mechanical valves. NOTE: INR values over 3.0 are sometimes associated with gastrointestinal hemorrhage, especially values over 4.0. Specimen Blood Performing Organization Address City/State/[facility] Ph one Number [facility] DEPARTMENT OF [address] [place] [address] PATHOLOGY AND GENOMIC MEDICINE [facility] [address] [place] [address] * Transfuse RBC (01/28/2020 8:34 PM PERFORMANCE ANALYST) Only the most recent of 2 results within the time period is included. * Albumin, misc fluid (01/28/2020 12:41 PM PERFORMANCE ANALYST) Pathologist [facility] Fluid type Paracentesis [facility] Albumin, fluid 0.8 g/dL [place] Comment: DENOMINATIONAL The reference interval(s) and HOSPITAL other method performance specifications have not been established for this body fluid. The test results must be integrated into the clinical context for interpretation. This test has been modified from the manufacturers instructions. The performance characteristics were determined by [facility] in a manner consistent with CLIA requirements. This test has not been cleared or approved by the U.S. Food and Drug Administration. Specimen Fluid Performing Organization Address City/State/Zipcode Ph one Number [facility] DEPARTMENT OF [address] [place] [address] PATHOLOGY AND GENOMIC MEDICINE [address] * Cytology (non-gynecological) request (01/28/2020 12:40 PM PERFORMANCE ANALYST) [facility] DEPARTMENT OF PATHOLOGY AND GENOMIC MEDICINE Cytology See link below for PDF Lab [facility] DEPAR TMENT (non-gynecologi Report OF PATHOLOGY jovanna) report AND GENOMIC MEDICINE Result status This is Final Report for [facility] DEPARTM ENT [id number] OF PATHOLOGY AND GENOMIC MEDICINE Specimen Performing Organization Address City/[facility] Ph one Number [facility] DEPARTMENT OF [address] [place] [address] PATHOLOGY AND GENOMIC MEDICINE * US Abdominal Paracentesis Imaging (01/28/2020 12:38 PM PERFORMANCE ANALYST) Specimen Narrative Performed At EXAMINATION: US ABDOMINAL [...] used for local anesthesia . A 5 Hebrew Catheter and Needle was inse rted into the peritoneal cavity and 6.8 L of peritoneal fluid was removed. The patient tolerated the procedure wit hout difficulty and was discharged to the radiology recovery area for monitoring prior to discharge. EBL: None. COMPLICATIONS: None. SPECIMENS: As above. ASSISTANTS: None. IMPRESSION: Uncomplicated ultrasound-guided diagnos tic and therapeutic paracentesis. [facility]-[id number] Procedure Note Hm Interface, Radiology Results Incoming - 01/28/2020 1:06 PM PERFORMANCE ANALYST EXAMINATION: US ABDOMINAL PARACENTESIS IMAGING CLINICAL HISTORY: ASCITES COMPARISON:None. TECHNIQUE: The procedure's risks, benefits, and alternatives were discussed with the patient and written, informed consent was obtained. Using ultrasound guidance, a site for needle entry was selected and the overlying skin was prepped and draped in the usual sterile fashion. 1% buffered lidocaine was used for local anesthesia. A 5 Hebrew Catheter and Needle was inserted into the peritoneal cavity and 6.8 L of peritoneal fluid was removed. The patient tolerated the procedure without difficulty and was discharged to the radiology recovery area for monitoring prior to discharge. EBL: None. COMPLICATIONS: None. SPECIMENS: As above. ASSISTANTS: None. IMPRESSION: Uncomplicated ultrasound-guided diagnostic and therapeutic paracentesis. [facility]-[id number] Performing Organization Address City/[facility]/Zipcode Ph one Number [facility] [address] [place] [address] * CT Abdomen Pelvis Wo Contrast (01/27/2020 9:19 PM PERFORMANCE ANALYST) Specimen Narrative Performed At CT ABDOMEN PELVIS [...] cholecystitis. 4. Colonic diverticulosis without diver ticulitis. [facility]-[id number] Procedure Note Interface, Radiology Results Incoming - 01/27/2020 9:[address] ABDOMEN PELVIS WO CONTRAST CLINICAL INDICATION: [...] cholecystitis. 4. Colonic diverticulosis without divert iculitis. [facility]-[id number] Performing Organization Address [facility] one Number [facility] [address] [place] [address] * Occult blood, stool (01/27/2020 4:00 PM PERFORMANCE ANALYST) Occult blood, Negative for occult blood. [place] stool Comment: DENOMINATIONAL Specimen Information [place] Specimen Source: [facility] Specimen Site: Nonpreserved Specimen Stool - Nonpreserved Performing Organization Address [facility] Ph one Number [facility] DEPARTMENT OF [address] [place] [address] PATHOLOGY AND GENOMIC MEDICINE [facility] [address] * Ammonia level (01/27/2020 2:28 PM PERFORMANCE ANALYST) Ammonia 33 16 - 60 umol/L [facility] Specimen Plasma specimen Performing Organization Address [facility]/Zipcode Ph one Number [facility] DEPARTMENT OF [address] [place] [address] PATHOLOGY AND GENOMIC MEDICINE [facility] [address] * Partial thromboplastin time, activated (01/27/2020 2:22 PM PERFORMANCE ANALYST) PTT 39.4 (H) 23.0 - 36.0 sec [place] Comment: DENOMINATIONAL PTT therapeutic range for [place] unfractionated heparin is HOSPITAL 61.0-112.0 seconds which corresponds to Anti-Xa 0.3-0.7 U/ml. Specimen Blood Performing Organization Address City/[facility] Ph one Number [facility] DEPARTMENT OF [address] [place] [address] PATHOLOGY AND GENOMIC MEDICINE [facility] [address] * Prepare RBC, 2 Units (01/27/2020 1:15 PM PERFORMANCE ANALYST) Pathologist [facility] Product name Apheresis Red Cell AS3 #1 LR [facility] Unit number [id number] [facility] Product code [id number] [facility] Dispense status Transfused [facility] Blood [id number] [place] expiration date [facility] Blood type code 0600 [facility] Blood type A NEGATIVE [facility] Compatibility Compatible [facility] Product name Apheresis Red Cell AS3 #1 LR [facility] Unit number [id number] [facility] Product code [id number] [facility] Dispense status Transfused [facility] Blood [id number] [place] expiration date [facility] Blood type code 0600 [facility] Blood type A NEGATIVE [facility] Compatibility Compatible [facility] Specimen Blood Performing Organization Address City/State/Zipcode Ph one Number [facility] DEPARTMENT OF [address] [place] [address] PATHOLOGY AND GENOMIC MEDICINE [facility] [address] * Type and screen (01/27/2020 1:15 PM PERFORMANCE ANALYST) Pathologist [facility] ABO grouping A [facility] Rh type NEG [facility] Antibody screen NEG [place] (gel) [facility] Specimen Blood Performing Organization Address City/[facility] Ph one Number [facility] DEPARTMENT OF [address] [place] [address] PATHOLOGY AND GENOMIC MEDICINE [facility] [address] [place] [address] * B natriuretic peptide (01/27/2020 1:15 PM PERFORMANCE ANALYST) Pathologist [facility] BNP 59 0 - 100 pg/mL [facility] Specimen Blood Performing Organization Address City/[facility] Ph one Number [facility] DEPARTMENT OF [address] [place] [address] PATHOLOGY AND GENOMIC MEDICINE [facility] [address] [place] [address] [place] [address] HOSPITAL * Hemoglobin A1c (01/27/2020 1:15 PM PERFORMANCE ANALYST) Pathologist [facility] Hemoglobin A1C <4.7 4.0 - 5.6 % [place] Comment: DENOMINATIONAL HbA1c cutoffs for diagnosing [place] diabetes: HOSPITAL 4.0% - 5.6% = normal 5.7% - 6.4% = increased risk for diabetes (prediabetes)9 >=6.5% = diabetes9 Goals for glycemic control (ADA 2016) < 7.0% Target for non adults with diabetes. More or less stringent targets may be appropriate for individual patients. <7.5% Target for Children and adolescents with type 1 diabetes. Specimen Blood Performing Organization Address City/[facility] Ph one Number [facility] DEPARTMENT OF [address] [place] [address] PATHOLOGY AND GENOMIC MEDICINE [facility] [address] [place] [address] * Lipid panel (01/27/2020 1:15 PM PERFORMANCE ANALYST) Pathologist [facility] Cholesterol 209 (H) 0 - 199 mg/dL [facility] Triglycerides 102 0 - 149 mg/dL [facility] HDL cholesterol 46 40 - 9,999 mg/dL [facility] LDL cholesterol 162 (H)Comment: Result 0 - 99 mg/dL [place] obtained by direct LDL DENOMINATIONAL measurement [facility] Lipid panel See below [place] interpretation Comment: DENOMINATIONAL Total Cholesterol (mg/dL) [place] LDL Cholesterol [facility] (mg/dL) <200 Desirable <100 [...] Performing Organization Address City/State/Zipcode Ph one Number [facility] DEPARTMENT OF [address] [place] [address] PATHOLOGY AND GENOMIC MEDICINE [facility] [address] [place] [address] HOSPITAL after 08/09/2019 Advance Directives For more information, please contact: [phone] Patient Senior Qualitative Researcher Explanation Type Date Recorded Advance Directives, 01/27/2020 2:30 PM Living Will and Medical Power of Mba Intern
--- NOTE | 2020-08-09 16:55 | Emergency Department Note ---
History of Present Illnes History of Present Illness Chief Complaint: General Medicine Complaints History of Present Illness This is a 65 year old male arrives to the ED with complaints of passing out while the bathroom, patient states he has no recollection of events. Patient states he is concerned about the episode. Historian: Patient Arrival Mode: Car Onset (how long ago): day(s) Radiation: Reports non-radiation Severity: mild Onset quality: sudden Duration (how long): day(s) Chronicity: new Context: Denies recent illness Past Medical/Family History Physician Review I have reviewed the patient's past medical and family history. Any updates have been documented here. Past Medical History Recent Fever: No Clinical Suspicion of Infectio: No New/Unexplained Change in Ment: No Past Medical History: Liver Disease, Anemia, DVT/PE Other Medical History: CIRROHOSIS ALOCOHOLISM (11/28/2019) STOPPED DRINKING VARIES BILATERAL PULMONARY EMBOLISM NEVER SMOKER Past Surgical History: None Review of Systems Review of Systems Constitutional: Reports no symptoms EENTM: Reports no symptoms Cardiovascular: Reports no symptoms Respiratory: Reports no symptoms Gastrointestinal: Reports no symptoms Genitourinary: Reports no symptoms Musculoskeletal: Reports no symptoms Integumentary: Reports no symptoms Neurological: Reports as per HPI, Reports other (syncope) Psychological: Reports no symptoms Endocrine: Reports no symptoms Hematological/Lymphatic: Reports no symptoms Physical Exam Related Data Allergies: Coded Allergies: No Known Allergies (Unverified , 08/09/20) Triage Vital Signs Vital Signs Date Time Temp Pulse Resp B/P (MAP) Pulse Ox O2 Delivery O2 Flow Rate FiO2 08/09/20 15:48 98.4 65 18 101/52 100 Room Air Vital signs reviewed: Yes Physical Exam CONSTITUTIONAL Constitutional: Present well-developed, Present well-nourished HENT HENT: Present normocephalic, Present atraumatic, Present oropharynx clear/moist, Present nose normal HENT L/R: Present left ext ear normal, Present right ext ear normal EYES Eyes: Reports PERRL, Reports conjunctivae normal NECK Neck: Present ROM normal PULMONARY Pulmonary: Present effort normal, Present breath sounds normal CARDIOVASCULAR Cardiovascular: Present regular rhythm, Present heart sounds normal, Present capillary refill normal, Present normal rate GASTROINTESTINAL Abdominal: Present soft, Present nontender, Present bowel sounds normal, Present distension, Present other (caput [place], abdominal ascites) GENITOURINARY Genitourinary: Present exam deferred SKIN Skin: Present warm, Present dry MUSCULOSKELETAL Musculoskeletal: Present ROM normal NEUROLOGICAL Neurological: Present alert, Present oriented x 3, Present no gross motor or s ensory deficits PSYCHOLOGICAL Psychological: Present mood/affect normal, Present judgement normal Results Laboratory Lab results reviewed: Yes Laboratory comments Laboratory Tests Test 08/10/20 05:10 08/10/20 04:40 White Blood Count 8.67 x10e3/uL (4.8-10.8) Red Blood Count 2.15 x10e6/uL (4.3-5.7) Hemoglobin 6.9 g/dL (14.0-18.0) Hematocrit 20.7 % (38.2-49.6) Mean Corpuscular Volume 96.3 fL (81-99) Mean Corpuscular Hemoglobin 32.1 pg (28-32) Mean Corpuscular Hemoglobin Concent 33.3 g/dL (31-35) Red Cell Distribution Width 16.4 % (11.7-14.4) Platelet Count 100 x10e3/uL (140-360) Neutrophils (%) (Auto) 72.0 % (38.7-80.0) Lymphocytes (%) (Auto) 14.9 % (18.0-39.1) Monocytes (%) (Auto) 8.8 % (4.4-11.3) Eosinophils (%) (Auto) 3.7 % (0.0-6.0) Basophils (%) (Auto) 0.3 % (0.0-1.0) Neutrophils # (Auto) 6.2 (2.1-6.9) Lymphocytes # (Auto) 1.3 (1.0-3.2) Monocytes # (Auto) 0.8 (0.2-0.8) Eosinophils # (Auto) 0.3 (0.0-0.4) Basophils # (Auto) 0.0 (0.0-0.1) Absolute Immature Granulocyte (auto 0.03 x10e3/uL (0-0.1) Sodium Level 130 mmol/L (136-145) Potassium Level 4.3 mmol/L (3.5-5.1) Chloride Level 101 mmol/L (98-107) Carbon Dioxide Level 16 mmol/L (22-29) Anion Gap 17.3 mmol/L (8-16) Blood Urea Nitrogen 20 mg/dL (7-26) Creatinine 0.92 mg/dL (0.72-1.25) Estimat Glomerular Filtration Rate > 60 ML/MIN (60-) BUN/Creatinine Ratio 22 (6-25) Glucose Level 84 mg/dL (74-118) Calcium Level 8.7 mg/dL (8.4-10.2) Magnesium Level 1.6 MG/DL (1.3-2.1) Iron Level 16 ug/dL (65-175) Total Iron Binding Capacity 295 ug/dL (261-478) Percent Iron Saturation 5 % (15-50) Transferrin 211 mg/dL (174-364) Total Bilirubin 1.6 mg/dL (0.2-1.2) Aspartate Amino Transf (AST/SGOT) 24 IU/L (5-34) Alanine Aminotransferase (ALT/SGPT) 12 IU/L (0-55) Alkaline Phosphatase 92 IU/L (40-150) Total Protein 5.7 g/dL (6.5-8.1) Albumin 3.1 g/dL (3.5-5.0) Globulin 2.6 g/dL (2.3-3.5) Albumin/Globulin Ratio 1.2 (0.8-2.0) Vitamin B12 Level 754 pg/mL (213-816) Thyroid Stimulating Hormone (TSH) 2.556 uIU/mL (0.350-4.940) Urine Color Yellow (YELLOW) Urine Clarity Clear (CLEAR) Urine pH 5 (5 - 7) Urine Specific [place] 1.020 (1.010-1.025) Urine Protein Negative (NEGATIVE) Urine Glucose (UA) Negative (NEGATIVE) Urine Ketones Negative (NEGATIVE) Urine Blood Negative (NEGATIVE) Urine Nitrite Negative (NEGATIVE) Urine Bilirubin Negative (NEGATIVE) Urine Urobilinogen 0.2 mg/dL (0.2 - 1) Urine Leukocyte Esterase Negative (NEGATIVE) Urine RBC 0-5 /HPF (0-5) Urine WBC 0-5 /HPF (0-5) Urine Epithelial Cells Few /LPF (NONE) Urine Amorphous Sediment Few (FEW) Urine Bacteria Few /HPF (NONE) Imaging Imaging results reviewed: Yes Procedures 12 Lead ECG Interpretation ECG Interpretation : ECG: ECG 1 Prior ECG tracings: reviewed Rhythm: sinus rhythm Rate: normal QRS axis: normal ST segments normal: Yes Clinical Impression: normal ECG Assessment & Plan Medical Decision Making MDM 65-year-old male arrived to the ED with a syncopal episode occurred at home. Patient with significant medical history including hypertension, liver cirrhosis resulting in ascites requiring paracentesis every 4 to 6 weeks as well as questionably underlying CAD. Patient admitted for cardiac monitoring. Patient with leukocytosis, however, no concerns for source of infection at time of admission. Patient elevated T bili likely secondary to his underlying liver cirrhosis and this is not a source of organ dysfunction at this time nor is it a cause of any infectious process. Patient is afebrile, mildly anemic but there is no source or cause of infectious process at time of admission. Assessment & Plan Final Impression: (1) Syncope (2) Anemia, chronic disease Depart Disposition: ADMITTED Last Vital Signs Date Time Temp Pulse Resp B/P (MAP) Pulse Ox O2 Delivery O2 Flow Rate FiO2 08/09/20 15:48 98.4 65 18 101/52 100 Room Air Home Meds Reported Medications Lactulose (LACTULOSE) 20 Gm/30 Ml Solution, 15 ML PO DAILY, EACH 08/10/20 Ferrous Sulfate (FERROUS SULFATE) 325 Mg Tablet, 325 MG PO BID 08/10/20 Furosemide (FUROSEMIDE) 40 Mg Tablet, 40 MG PO BID, #30 TAB 08/10/20 Omeprazole (Omeprazole) 20 Mg Tab.rap. 08/10/20 Multivitamin (MULTIVITAMINS) 1 Each Capsule 08/10/20 Vitamin B Complex (COMPLEX B-100) 1 Each Tablet.er 08/10/20 Spironolactone (SPIRONOLACTONE) 100 Mg Tablet, DAILY 08/10/20 Propranolol Hcl (PROPRANOLOL HCL) 10 Mg Tablet, 20 MG PO BID, TAB 08/10/20 SEDRICK DE LEON DO Aug 09, 2020 16:55
--- NOTE | 2020-08-09 17:42 | Diagnostic Imaging Report ---
EXAMINATION: CHEST SINGLE (PORTABLE) INDICATION: Syncope. COMPARISON: None FINDINGS: TUBES and LINES: None. LUNGS: Normal lung volumes. There are prominent interstitial lung markings and multifocal hazy opacification of the lungs. PLEURA: No pleural effusion or pneumothorax. HEART AND MEDIASTINUM: The cardiomediastinal silhouette is unremarkable. BONES AND SOFT TISSUES: No acute osseous lesion. Soft tissues are unremarkable. UPPER ABDOMEN: No free air under the diaphragm. IMPRESSION: Prominent interstitial lung markings and multifocal hazy opacification of the lungs. These findings may represent subsegmental atelectasis, aspiration and/or multifocal pneumonia in the proper clinical setting. Signed by: Vega Bethea MD on 08/09/2020 5:38 PM
[2020-08-09 17:54] LABS: BASOPHILS # (AUTO) 0.1 (0.0-0.1); BASOPHILS % 0.4 % (0.0-1.0); EOSINOPHILS # (AUTO) 0.2 (0.0-0.4); EOSINOPHILS % 1.3 % (0.0-6.0); HEMOGLOBIN 7.5 g/dL (14.0-18.0); LYMPHOCYTES # (AUTO) 0.8 (1.0-3.2); LYMPHOCYTES % 4.7 % (18.0-39.1); MEAN CORPUSCULAR HEMOGLOBIN 30.2 pg (28-32); MEAN CORPUSCULAR HGB CONC 32.6 g/dL (31-35); MEAN CORPUSCULAR VOLUME 92.7 fL (81-99); MONOCYTES # (AUTO) 0.6 (0.2-0.8); NEUTROPHILS % 88.6 % (38.7-80.0); PLATELET COUNT 127 x10e3/uL (140-360); RED BLOOD COUNT 2.48 x10e6/uL (4.3-5.7); RED CELL DISTRIBUTION WIDTH 15.9 % (11.7-14.4)
[2020-08-09 18:07] LABS: ALANINE AMINOTRANSFERASE 13 IU/L (0-55); ALBUMIN 3.5 g/dL (3.5-5.0); ALBUMIN/GLOBULIN RATIO 1.2 (0.8-2.0); ALKALINE PHOSPHATASE 103 IU/L (40-150); ANION GAP 18.6 mmol/L (8-16); BLOOD UREA NITROGEN 21 mg/dL (7-26); BUN/CREATININE RATIO 18 (6-25); CALCIUM 9.1 mg/dL (8.4-10.2); CARBON DIOXIDE 17 mmol/L (22-29); CHLORIDE 98 mmol/L (98-107); CREATINE KINASE 16 IU/L (30-200); CREATININE, SERUM 1.17 mg/dL (0.72-1.25); EST GLOMERULAR FILTRATION RATE > 60 ML/MIN (60-); GLUCOSE 93 mg/dL (74-118); POTASSIUM 4.6 mmol/L (3.5-5.1); SODIUM 129 mmol/L (136-145)
--- NOTE | 2020-08-09 18:41 | Diagnostic Imaging Report ---
EXAMINATION: Head CT HISTORY: Syncope, pain COMPARISON: None. TECHNIQUE: Helical axial images of the head were obtained. Reformatted coronal and sagittal images from the axial data. Dose modulation, iterative reconstruction, and/or weight based adjustment of the mA/kV was utilized to reduce the radiation dose to as low as reasonably achievable. Image quality: Motion/streaking artifact limits the evaluation of the skull base and posterior cranial fossa. FINDINGS: Parenchyma: 1. No abnormal densities. 2. No mass or hemorrhage. No CT evidence of acute territorial vascular insult. Extra-axial spaces:No abnormal density. No extra-axial fluid collections Brain volume: Normal for age. Ventricles: No hydrocephalus or displacement. Arteries: No density suggestive of thrombus. Dural sinuses: No abnormal density. Foramen magnum: No mass, Chiari malformation, or basilar invagination. Sella: No obvious mass. Paranasal/mastoid sinuses: Imaged portions unremarkable. Skull/Scalp: No lytic or blastic lesions. No fractures. IMPRESSION: No intracranial abnormalities. Signed by: Dr. Kayli Caldwell M.D. on 08/09/2020 6:38 PM
--- OUTSIDE RECORDS SUMMARY | 2020-08-09 18:57 | XMS REPORT | Clinical Summary ---
Author Author [facility] Organization [facility] Address Unknown Phone Unavailable Care Team Providers Care Orthopedically Impaired Teacher Name Role Phone Mary Jane Carr PCP [...] Added automatically from request for pete oliveira [id number] Encounters Care Team Description Date Type Specialty Jackie Morse MA 01/31/2020 Telephone Gastroenterology BaTiffany washburn MD Su, Young, MD 01/29/2020 Anesthesia Gastroenterology Event Barry Velasquez MD ESOPHAGOGASTRODUODENOSCOPY (EGD) 01/29/2020 Surgery Gastroenterology Grant, MD Henry Mcgovern Syed Muhammad Javed, MD Iron deficiency anemia due to chronic bl ood loss (Primary Dx); Acute blood loss anemia; Acute GI bleeding; Hypokalemia; Hyponatremia 01/27/2020 [facility] Internal Ia dicine - Encounter 01/30/2020 after 08/09/2019 Family [...] Comments Vital Sign 109/58 01/30/2020 7:53 AM CYLINDER DIE MACHINE HELPER Blood Pressure 72 01/30/2020 7:53 AM CYLINDER DIE MACHINE HELPER Pulse 36.4 C (97.6 F) 01/30/2020 7:53 AM CYLINDER DIE MACHINE HELPER Temperature 20 01/30/2020 7:53 AM CYLINDER DIE MACHINE HELPER Respiratory Rate 98% 01/30/2020 7:53 AM CYLINDER DIE MACHINE HELPER Oxygen Saturation - - Inhaled Oxygen Concentration 90.8 kg (200 lb 1.6 oz) 01/29/2020 6:40 AM CYLINDER DIE MACHINE HELPER Weight 185.4 cm (6' 1") 01/27/2020 5:19 PM CYLINDER DIE MACHINE HELPER Height 26.4 01/27/2020 5:19 PM CYLINDER DIE MACHINE HELPER Body Mass Index Plan of Treatment Health Maintenance Due Date Last Done Comments COLONOSCOPY SCREENING 2007 SHINGLES VACCINES (#1) 2007 INFLUENZA VACCINE 08/29/2020 Procedures Comments Procedure Name Priority Date/Time Associated Diag nosis MANUAL DIFFERENTIAL Routine 01/30/2020 6:57 AM CYLINDER DIE MACHINE HELPER ESTIMATED GFR Routine 01/30/2020 6:57 AM CYLINDER DIE MACHINE HELPER CBC WITH PLATELET AND Routine 01/30/2020 DIFFERENTIAL 6:57 AM CYLINDER DIE MACHINE HELPER BASIC METABOLIC PANEL Routine 01/30/2020 6:57 AM CYLINDER DIE MACHINE HELPER ESOPHAGOGASTRODUODENOSCOP 01/29/2020 Iron defici ency anemia Y (EGD) 12:09 PM CYLINDER DIE MACHINE HELPER due to chronic bloo d loss XR RIBS W PA CHEST LEFT Routine 01/29/2020 10:18 AM CYLINDER DIE MACHINE HELPER SMEAR REVIEW Routine 01/29/2020 6:38 AM CYLINDER DIE MACHINE HELPER ESTIMATED GFR Routine 01/29/2020 6:38 AM CYLINDER DIE MACHINE HELPER PROTHROMBIN TIME WITH INR Routine 01/29/2020 6:38 AM CYLINDER DIE MACHINE HELPER HC COMPLETE BLD COUNT Routine 01/29/2020 W/AUTO DIFF 6:38 AM CYLINDER DIE MACHINE HELPER BASIC METABOLIC PANEL Routine 01/29/2020 6:38 AM CYLINDER DIE MACHINE HELPER TRANSFUSE RED BLOOD CELLS Routine 01/28/2020 8:34 PM CYLINDER DIE MACHINE HELPER TRANSFUSE RED BLOOD CELLS Routine 01/28/2020 5:06 PM CYLINDER DIE MACHINE HELPER ALBUMIN, MISC FLUID Routine 01/28/2020 12:41 PM CYLINDER DIE MACHINE HELPER CYTOLOGY Routine 01/28/2020 (NON-GYNECOLOGICAL) 12:40 PM CYLINDER DIE MACHINE HELPER REQUEST US ABDOMINAL PARACENTESIS STAT 01/28/2020 IMAGING 12:38 PM CYLINDER DIE MACHINE HELPER SMEAR REVIEW Routine 01/28/2020 6:32 AM CYLINDER DIE MACHINE HELPER ESTIMATED GFR Routine 01/28/2020 6:32 AM CYLINDER DIE MACHINE HELPER BASIC METABOLIC PANEL Routine 01/28/2020 6:32 AM CYLINDER DIE MACHINE HELPER HC COMPLETE BLD COUNT Routine 01/28/2020 W/AUTO DIFF 6:32 AM CYLINDER DIE MACHINE HELPER CT ABDOMEN PELVIS WO STAT 01/27/2020 CONTRAST 9:19 PM CYLINDER DIE MACHINE HELPER OCCULT BLOOD, STOOL Routine 01/27/2020 4:00 PM CYLINDER DIE MACHINE HELPER AMMONIA LEVEL STAT 01/27/2020 2:28 PM CYLINDER DIE MACHINE HELPER PARTIAL THROMBOPLASTIN STAT 01/27/2020 TIME (PTT) 2:22 PM CYLINDER DIE MACHINE HELPER PROTHROMBIN TIME WITH INR STAT 01/27/2020 2:22 PM CYLINDER DIE MACHINE HELPER PREPARE RBC Routine 01/27/2020 1:15 PM CYLINDER DIE MACHINE HELPER B NATRIURETIC PEPTIDE Routine 01/27/2020 1:15 PM CYLINDER DIE MACHINE HELPER LIPID PANEL Routine 01/27/2020 1:15 PM CYLINDER DIE MACHINE HELPER HEMOGLOBIN A1C Routine 01/27/2020 1:15 PM CYLINDER DIE MACHINE HELPER SMEAR REVIEW STAT 01/27/2020 1:15 PM CYLINDER DIE MACHINE HELPER ESTIMATED GFR STAT 01/27/2020 1:15 PM CYLINDER DIE MACHINE HELPER TYPE AND SCREEN Routine 01/27/2020 1:15 PM CYLINDER DIE MACHINE HELPER BASIC METABOLIC PANEL STAT 01/27/2020 1:15 PM CYLINDER DIE MACHINE HELPER HC COMPLETE BLD COUNT STAT 01/27/2020 W/AUTO DIFF 1:15 PM CYLINDER DIE MACHINE HELPER after 08/09/2019 Results * Estimated GFR (01/30/2020 6:57 AM CYLINDER DIE MACHINE HELPER) Only the most recent of 4 results within the time period is included. Estimated GFR >=90 mL/min/1.73 m2 [place] Comment: YAZIDI Catergory Units [facility] G1 >=90 Normal or high G2 [...] Performing Organization Address City/State/Zipcode Ph one Number [facility] [place] [address] PATHOLOGY AND GENOMIC MEDICINE [place] [facility] [address] [place] [address] HOSPITAL * Manual differential (01/30/2020 6:57 AM CYLINDER DIE MACHINE HELPER) Pathologist [facility] Manual PERFORMED [place] differential [facility] Neutrophils 59.0 36.0 - 66.0 % [facility] Lymphocytes 36.0 24.0 - 44.0 % [facility] Monocytes 5.0 0.0 - 6.0 % [facility] Eosinophils 0.0 0.0 - 6.0 % [facility] Basophils 0.0 0.0 - 1.2 % [facility] Metamyelocytes 0 0 - 1 % [facility] Promyelocytes 0 0 - 1 % [facility] Platelet slide Decreased (A) [place] review [facility] Anisocytosis slight [facility] Polychromasia slight [facility] Tear drop cells Occasional [facility] Schistocytes rare [facility] Ovalocytes Occasional [facility] Enlarged Occasional [facility] Specimen Performing Organization Address City/State/Zipcode Ph one Number [facility] DEPARTMENT OF [facility] [place] [address] PATHOLOGY AND GENOMIC MEDICINE [address] * CBC with platelet and differential (01/30/2020 6:57 AM CYLINDER DIE MACHINE HELPER) Only the most recent of 4 results within the time period is included. WBC 5.8 4.2 - 11.0 k/uL [facility] RBC 2.86 (L) 4.04 - 5.86 m/uL [facility] HGB 9.6 (L) 13.0 - 17.3 g/dL [facility] HCT 28.9 (L) 34.0 - 45.0 % [facility] MCV 101.0 (H) 80.0 - 98.0 fL [facility] MCH 33.6 27.0 - 34.0 pg [facility] MCHC 33.2 31.5 - 36.5 g/dL [facility] RDW - SD 78.6 (H) 37.0 - 51.0 fL [facility] MPV 8.7 7.4 - 10.4 fL [facility] Platelet count 82 (L) 150 - 400 k/uL [facility] Nucleated RBC 0.00 /100 WBC [facility] Neutrophils 59.0 36.0 - 66.0 % [facility] Lymphocytes 36.0 24.0 - 44.0 % [facility] Monocytes 5.0 0.0 - 6.0 % [facility] Eosinophils 0.0 0.0 - 6.0 % [facility] Basophils 0.0 0.0 - 1.2 % [facility] Specimen Blood Performing Organization Address City/[facility] Ph one Number [facility] DEPARTMENT OF [address] [place] [address] PATHOLOGY AND GENOMIC MEDICINE [address] * Basic metabolic panel (01/30/2020 6:57 AM CYLINDER DIE MACHINE HELPER) Only the most recent of 4 results within the time period is included. Sodium 134 (L) 135 - 150 mEq/L [facility] Potassium 3.5 3.5 - 5.0 mEq/L [facility] Chloride 100 98 - 112 mEq/L [facility] CO2 21 (L) 24 - 31 mmol/L [facility] Anion gap 13@ANIO 7 - 15 mEq/L [facility] BUN 8 7 - 18 mg/dL [facility] Creatinine 0.70 0.70 - 1.20 mg/dL [facility] Glucose 106 (H) 65 - 100 mg/dL [facility] Calcium 8.1 (L) 8.8 - 10.2 mg/dL [facility] Specimen Plasma specimen Performing Organization Address City/[facility]/Zipcode Ph one Number [facility] DEPARTMENT OF [address] [place] [address] PATHOLOGY AND GENOMIC MEDICINE [facility] [address] [place] [address] HOSPITAL * XR Ribs W Pa Chest Left (01/29/2020 10:18 AM CYLINDER DIE MACHINE HELPER) Specimen Narrative Performed At EXAMINATION: XR RIBS W PA CHEST LEFT [facility] CLINICAL HISTORY: fall pain COMPARISON: None. IMPRESSION: 1.Bibasilar atelectasis. No pleural eff usion. No pneumothorax or midline shift. No focal consolidation. 2.The mediastinal contours and cardiac silhouette are unremarkable. Mild atherosclerotic 3.There is an acute, nondisplaced poste rior lateral seventh rib fracture. 4.Otherwise the bony structures are unr emarkable. [facility]-[id number] Procedure Note Hm Interface, Radiology Results Incoming - 01/29/2020 10:26 AM CYLINDER DIE MACHINE HELPER EXAMINATION: XR RIBS W PA CHEST LEFT CLINICAL HISTORY: fall pain COMPARISON: None. IMPRESSION: 1.Bibasilar atelectasis. No pleural effu kvng. No pneumothorax or midline shift. No focal consolidation. 2.The mediastinal contours and cardiac s ilhouette are unremarkable. Mild atherosclerotic 3.There is an acute, nondisplaced automatic pinsetter mechanic ior lateral seventh rib fracture. 4.Otherwise the bony structures are unre markable. [facility]-[id number] Performing Organization Address City/[facility] Ph one Number [facility] [address] [place] [address] * Smear review (01/29/2020 6:38 AM CYLINDER DIE MACHINE HELPER) Only the most recent of 3 results within the time period is included. Platelet slide Decreased (A) [place] review [facility] Anisocytosis 1+ [facility] Polychromasia 1+ [facility] Schistocytes FEW [facility] Target cells FEW [facility] Wall cells FEW [facility] Specimen Performing Organization Address City/State/[facility] Ph one Number [facility] DEPARTMENT OF [address] [place] [id number] PATHOLOGY AND GENOMIC MEDICINE [facility] [address] [place] [address] HOSPITAL * Prothrombin time with INR (01/29/2020 6:38 AM CYLINDER DIE MACHINE HELPER) Only the most recent of 2 results within the time period is included. Prothrombin 16.3 (H) 11.5 - 14.5 sec [facility] INR 1.30 [place] Comment: YAZIDI [facility] therapy, reference ranges HOSPITAL below: Indication: INR Value Treatment of Venous Thrombosis, 2.0-3.0 pulmonary emboli, or prophylaxis of a venous thrombosis, or systemic emboli. High dose, high risk patients 3.0-4.5 with mechanical valves. NOTE: INR values over 3.0 are sometimes associated with gastrointestinal hemorrhage, especially values over 4.0. Specimen Blood Performing Organization Address City/State/[facility] Ph one Number [facility] DEPARTMENT OF [address] [place] [address] PATHOLOGY AND GENOMIC MEDICINE [facility] [address] [place] [address] * Transfuse RBC (01/28/2020 8:34 PM CYLINDER DIE MACHINE HELPER) Only the most recent of 2 results within the time period is included. * Albumin, misc fluid (01/28/2020 12:41 PM CYLINDER DIE MACHINE HELPER) Pathologist [facility] Fluid type Paracentesis [facility] Albumin, fluid 0.8 g/dL [place] Comment: YAZIDI The reference interval(s) and HOSPITAL other method performance specifications have not been established for this body fluid. The test results must be integrated into the clinical context for interpretation. This test has been modified from the manufacturers instructions. The performance characteristics were determined by [facility] in a manner consistent with CLIA requirements. This test has not been cleared or approved by the U.S. Food and Drug Administration. Specimen Fluid Performing Organization Address City/State/Zipcode Ph one Number [facility] DEPARTMENT OF [address] [place] [address] PATHOLOGY AND GENOMIC MEDICINE [address] * Cytology (non-gynecological) request (01/28/2020 12:40 PM CYLINDER DIE MACHINE HELPER) [facility] DEPARTMENT OF PATHOLOGY AND GENOMIC MEDICINE Cytology See link below for PDF Lab [facility] DEPAR TMENT (non-gynecologi Report OF PATHOLOGY jovanna) report AND GENOMIC MEDICINE Result status This is Final Report for [facility] DEPARTM ENT [id number] OF PATHOLOGY AND GENOMIC MEDICINE Specimen Performing Organization Address City/[facility] Ph one Number [facility] DEPARTMENT OF [address] [place] [address] PATHOLOGY AND GENOMIC MEDICINE * US Abdominal Paracentesis Imaging (01/28/2020 12:38 PM CYLINDER DIE MACHINE HELPER) Specimen Narrative Performed At EXAMINATION: US ABDOMINAL [...] used for local anesthesia . A 5 Danish Catheter and Needle was inse rted into the peritoneal cavity and 6.8 L of peritoneal fluid was removed. The patient tolerated the procedure wit hout difficulty and was discharged to the radiology recovery area for monitoring prior to discharge. EBL: None. COMPLICATIONS: None. SPECIMENS: As above. ASSISTANTS: None. IMPRESSION: Uncomplicated ultrasound-guided diagnos tic and therapeutic paracentesis. [facility]-[id number] Procedure Note Hm Interface, Radiology Results Incoming - 01/28/2020 1:06 PM CYLINDER DIE MACHINE HELPER EXAMINATION: US ABDOMINAL PARACENTESIS IMAGING CLINICAL HISTORY: ASCITES COMPARISON:None. TECHNIQUE: The procedure's risks, benefits, and alternatives were discussed with the patient and written, informed consent was obtained. Using ultrasound guidance, a site for needle entry was selected and the overlying skin was prepped and draped in the usual sterile fashion. 1% buffered lidocaine was used for local anesthesia. A 5 Danish Catheter and Needle was inserted into the peritoneal cavity and 6.8 L of peritoneal fluid was removed. The patient tolerated the procedure without difficulty and was discharged to the radiology recovery area for monitoring prior to discharge. EBL: None. COMPLICATIONS: None. SPECIMENS: As above. ASSISTANTS: None. IMPRESSION: Uncomplicated ultrasound-guided diagnostic and therapeutic paracentesis. [facility]-[id number] Performing Organization Address City/[facility]/Zipcode Ph one Number [facility] [address] [place] [address] * CT Abdomen Pelvis Wo Contrast (01/27/2020 9:19 PM CYLINDER DIE MACHINE HELPER) Specimen Narrative Performed At CT ABDOMEN PELVIS [...] cholecystitis. 4. Colonic diverticulosis without diver ticulitis. [facility]-[id number] Procedure Note Interface, Radiology Results Incoming - 01/27/2020 9:58 PM CYLINDER DIE MACHINE HELPER CT ABDOMEN PELVIS WO CONTRAST CLINICAL INDICATION: [...] cholecystitis. 4. Colonic diverticulosis without divert iculitis. [facility]-[id number] Performing Organization Address [facility] one Number [facility] [address] [place] [address] * Occult blood, stool (01/27/2020 4:00 PM CYLINDER DIE MACHINE HELPER) Occult blood, Negative for occult blood. [place] stool Comment: YAZIDI Specimen Information [place] Specimen Source: [facility] Specimen Site: Nonpreserved Specimen Stool - Nonpreserved Performing Organization Address [facility] Ph one Number [facility] DEPARTMENT OF [address] [place] [address] PATHOLOGY AND GENOMIC MEDICINE [facility] [address] * Ammonia level (01/27/2020 2:28 PM CYLINDER DIE MACHINE HELPER) Ammonia 33 16 - 60 umol/L [facility] Specimen Plasma specimen Performing Organization Address [facility]/Zipcode Ph one Number [facility] DEPARTMENT OF [address] [place] [address] PATHOLOGY AND GENOMIC MEDICINE [facility] [address] * Partial thromboplastin time, activated (01/27/2020 2:22 PM CYLINDER DIE MACHINE HELPER) PTT 39.4 (H) 23.0 - 36.0 sec [place] Comment: YAZIDI PTT therapeutic range for [place] unfractionated heparin is HOSPITAL 61.0-112.0 seconds which corresponds to Anti-Xa 0.3-0.7 U/ml. Specimen Blood Performing Organization Address City/[facility] Ph one Number [facility] DEPARTMENT OF [address] [place] [address] PATHOLOGY AND GENOMIC MEDICINE [facility] [address] * Prepare RBC, 2 Units (01/27/2020 1:15 PM CYLINDER DIE MACHINE HELPER) Pathologist [facility] Product name Apheresis Red Cell AS3 #1 LR [facility] Unit number [id number] [facility] Product code U2817E56 [facility] Dispense status Transfused [facility] Blood [id number] [place] expiration date [facility] Blood type code 0600 [facility] Blood type A NEGATIVE [facility] Compatibility Compatible [facility] Product name Apheresis Red Cell AS3 #1 LR [facility] Unit number [id number] [facility] Product code [id number] [facility] Dispense status Transfused [facility] Blood [id number] [place] expiration date [facility] Blood type code 0600 [facility] Blood type A NEGATIVE [facility] Compatibility Compatible [facility] Specimen Blood Performing Organization Address City/State/Zipcode Ph one Number [facility] DEPARTMENT OF [address] [place] [address] PATHOLOGY AND GENOMIC MEDICINE [facility] [address] * Type and screen (01/27/2020 1:15 PM CYLINDER DIE MACHINE HELPER) Pathologist [facility] ABO grouping A [facility] Rh type NEG [facility] Antibody screen NEG [place] (gel) [facility] Specimen Blood Performing Organization Address City/[facility] Ph one Number [facility] DEPARTMENT OF [address] [place] [address] PATHOLOGY AND GENOMIC MEDICINE [facility] [address] [place] [address] * B natriuretic peptide (01/27/2020 1:15 PM CYLINDER DIE MACHINE HELPER) Pathologist [facility] BNP 59 0 - 100 pg/mL [facility] Specimen Blood Performing Organization Address City/[facility] Ph one Number [facility] DEPARTMENT OF [address] [place] [address] PATHOLOGY AND GENOMIC MEDICINE [facility] [address] [place] [address] [place] [address] HOSPITAL * Hemoglobin A1c (01/27/2020 1:15 PM CYLINDER DIE MACHINE HELPER) Pathologist [facility] Hemoglobin A1C <4.7 4.0 - 5.6 % [place] Comment: YAZIDI HbA1c cutoffs for diagnosing [place] diabetes: HOSPITAL 4.0% - 5.6% = normal 5.7% - 6.4% = increased risk for diabetes (prediabetes)9 >=6.5% = diabetes9 Goals for glycemic control (ADA 2016) < 7.0% Target for non adults with diabetes. More or less stringent targets may be appropriate for individual patients. <7.5% Target for Children and adolescents with type 1 diabetes. Specimen Blood Performing Organization Address City/[facility] Ph one Number [facility] DEPARTMENT OF [address] [place] [address] PATHOLOGY AND GENOMIC MEDICINE [facility] [address] [place] [address] * Lipid panel (01/27/2020 1:15 PM CYLINDER DIE MACHINE HELPER) Pathologist [facility] Cholesterol 209 (H) 0 - 199 mg/dL [facility] Triglycerides 102 0 - 149 mg/dL [facility] HDL cholesterol 46 40 - 9,999 mg/dL [facility] LDL cholesterol 162 (H)Comment: Result 0 - 99 mg/dL [place] obtained by direct LDL YAZIDI measurement [facility] Lipid panel See below [place] interpretation Comment: YAZIDI Total Cholesterol (mg/dL) [place] LDL Cholesterol [facility] (mg/dL) <200 Desirable <100 Optimal [...] Performing Organization Address City/State/Zipcode Ph one Number [facility] DEPARTMENT OF [address] [place] [address] PATHOLOGY AND GENOMIC MEDICINE [facility] [address] [place] [address] HOSPITAL after 08/09/2019 Advance Directives For more information, please contact: [phone] Patient Crown Wheel Assembler Explanation Type Date Recorded Advance Directives, 01/27/2020 2:30 PM Living Will and Medical Power of Split And Drum Room Supervisor
--- OUTSIDE RECORDS SUMMARY | 2020-08-09 18:57 | XMS REPORT | Clinical Summary ---
Author Author [facility] Address Unknown Phone Unavailable Care Team Providers Care Machine Made Shoe Unit Worker Name Role Phone Mary Jane Carr PCP [...] Carpio Rec CD (Rec 1 CD/records from [facility] attguillaume Arzola.) 01/24/2020 Telephone Hepatology after 08/09/2019 [...] CDT) WBC 6.0 3.5 - 10.5 K/L [facility] RBC 2.98 (L) 4.63 - 6.08 M/L [facility] Hemoglobin 10.1 (L) 13.7 - 17.5 GM/DL [facility] Hematocrit 30.0 (L) 40.1 - 51.0 % [facility] MCV 100.7 (H) 79.0 - 92.2 fL [facility] MCH 33.9 (H) 25.7 - 32.2 pg [facility] MCHC 33.7 32.3 - 36.5 GM/DL [facility] RDW 14.3 11.6 - 14.4 % [facility] Platelets 116 (L) 150 - 450 K/CU MM [facility] MPV 8.5 (L) 9.4 - 12.4 fL [facility] nRBC 0 0 - 0 /100 WBC [facility] % Neutros 56 % [facility] % Lymphs 32 % [facility] % Monos 6 % [facility] % Eos 4 % [facility] % Baso 1 % [facility] # Neutros 3.32 1.78 - 5.38 K/L [facility] # Lymphs 1.93 1.32 - 3.57 K/L [facility] # Monos 0.38 0.30 - 0.82 K/L [facility] # Eos 0.26 0.04 - 0.54 K/L [facility] # Baso 0.08 0.01 - 0.08 K/L [facility] Immature 0 0 - 1 % [facility] Granulocytes-[facility] Specimen Blood Performing Organization Address City/State/Zipcode Ph one Number [address] [facility] * Alpha fetoprotein (AFP), tumor marker (04/05/2020 11:17 AM CDT) Alpha-Fetoprotein 6.6 <10.0 ng/mL [facility] Specimen Blood Narrative Performed At Pressing Machine Operator ID - CAROLINA F [facility] Performing Organization Address City/[facility] Ph one Number [place] [address] [facility] * Hepatic function panel (04/05/2020 11:17 AM CDT) Protein, Total 7.4 6.0 - 8.3 gm/dL [facility] Albumin 3.6 3.5 - 5.0 g/dL [facility] Total Bilirubin 3.9 (H) 0.2 - 1.2 mg/dL [facility] Bilirubin, Direct 1.7 (H) 0.1 - 0.5 mg/dL [facility] Alkaline Phosphatase 182 (H) 40 - 150 U/L [facility] AST 41 (H) 5 - 34 U/L [facility] ALT 17 6 - 55 U/L [facility] Specimen Blood Narrative Performed At Pressing Machine Operator ID - ENEIDA F [facility] Specimen slightly icteric [facility] Performing Organization Address [facility] Ph one Number [place] [phone] [place] [address] * Basic Metabolic Panel (04/05/2020 11:17 AM CDT) Sodium 131 (L) 136 - 145 meq/L [facility] Potassium 4.3 3.5 - 5.1 meq/L [facility] Chloride 98 98 - 107 meq/L [facility] CO2 24 22 - 29 meq/L [facility] BUN 9 7 - 21 mg/dL [facility] Creatinine 0.81 0.57 - 1.25 mg/dL [facility] Glucose 108 (H) 70 - 105 mg/dL [facility] Calcium 9.4 8.4 - 10.2 mg/dL [facility] EGFR 97Comment: ESTIMATED GFR IS mL/min/1.73 sq m [facility] NOT ACCURATE CREATININE [facility] CLEARANCE IN PREDICTING GLOMERULAR FILTRATION RATE. ESTIMATED GFR IS NOT APPLICABLE FOR DIALYSIS PATIENTS. Specimen Blood Narrative Performed At Pressing Machine Operator ID - CAROLINA F [facility] Specimen slightly icteric [facility] Performing Organization Address City/[facility] one Number [facility] [address] [place], [place] [address] [facility] * Pro-time/INR (04/05/2020 11:16 AM CDT) Protime 14.6 (H) 11.9 - 14.2 seconds [facility] INR 1.2 <=5.9 [facility] Specimen Blood Narrative Performed At Effective 04/26/2019: PT Reference Range Change [facility] New: 11.9-14.2Previous: 11.7-14.7 [facility] MEDICAL CE NTER RECOMMENDED COUMADIN/WARFARIN INR THERA PY RANGES STANDARD DOSE: 2.0-3.0Includes: PRO PHYLAXIS for venous thrombosis, systemic embolization; TREATMENT for venous thro mbosis and/or pulmonary embolus. HIGH RISK: Target INR is 2.5-3.5 for pa tients wiht mechanical heart valves. Performing Organization Address City/[facility] Ph one Number [address] [facility] after 08/09/2019 Insurance Payer Benefit Subscriber ID Type Phone Address Plan / Group MULTIPLAN [employer] MULTIPLAN xxxxxxxxx PPO PPO
--- OUTSIDE RECORDS SUMMARY | 2020-08-09 18:58 | XMS REPORT | Continuity of Care Document ---
Author Author [facility] t Organization [facility] Address [address] [place] [address] Phone Unavailable Care Team Providers Care Business Change Manager Name Role Phone Mary Jane Carr PCP Unavailable Hillary DE LEON Attphys Unavailable DACCAK, JAMARKAN Attphys Unavailable Law, R Heena Attphys Unavailable Tin ABRAMS, Donny Galarza Attphys Bogdan CHARLTON, Grisel Attphys Unavailable Vinny HAWKINS, Kitty Thorpe Attphys Destiny Garcia MD Attphys Richard ABRAMS, Beto Flor Attphys Destiny GARCIA Attphys Unavailable Jenifer, Ness Attphys Unavailable Amada Marquez MA, Karen Attphys Unavailable Mini CHARLTON, Jackie Attphys Unavailable Grant MD, Nilson Diehl Attphys [phone] Bryn ABRAMS, Jyoti Sanon Attphys [phone] Eva ABRAMS, Clinton Reddy Attphys Penny ABRAMS, Leila Allen Attphys Ifeoma ABRAMS, Tahir Attphys Kelsy Carpio Attphys Unavailable DACCAK, RUKAN Admphys Unavailable BRYN NICKOLAS Admphys Unavailable Payers Payer Name Policy Type Policy Number Effective Date Expiration Date S jessica MULTIPLAN BCE EMERGISMULTIPLAN PPOxxxxxxxxxPPO xxxxxxxxx [facility] Problems Condition Name Condition Details Condition Category Status Onset Date Resolution Date Last Treatment Date Treating Clinician Comments Source Alcoholic cirrhosis of liver with ascites Alcoholic ci rrhosis of liver with ascites Disease Active 2020-04-05 00:00:00 [facility] Portal hypertension Portal hypertension Disease [facility] due to [facility] cirrhosis Ascites due to alcoholic cirr hosis Disease Active 2020-04-05 00:00:00 [facility] H/O esophageal varices H/O esophageal varices Disease Active 2020-04-05 00:00:00 [facility] Screening for endocrine, metabolic and immunity disord er Screening for endocrine, metabolic and immunity disorder Disease Active 2020-04-05 00:00:00 [facility] Acute blood loss anemia Acute blood loss anemia Disease Active 2020-01-27 00:00:00 Scooby hernandez Iron deficiency anemia due to chronic blood loss Iron deficiency anemia due to chronic blood loss Disease Active 2020-01-27 00:00:00 Overview: Added automatically from request for surgery [id number] [facility] Allergies, Adverse Reactions, Alerts This patient has no known allergies or adverse reactions. Family History Family Member Diagnosis Comments Start Date Stop Date Source Natural brother Pulmonary fibrosis H gerson De [facility] Natural father Alcohol abuse Sc[facility]oby [facility] Maternal grandfather Heart disease H gerson [place] Maternal grandfather Kidney disease [facility] Natural mother Arthritis [facility] thodist Social History Social Habit Start Date Stop Date Quantity Comments Source History of tobacco use Snuff User Sal De And[place] Sex Assigned At Carl [facility] Alcohol intake 2020-01-30 00:00:00 2020-01-30 00:00:00 Ex-drinker (fi nding) [facility]oby [facility] Tobacco Comment 2020-01-27 00:00:00 2020-01-27 00:00:00 52 years Scooby [facility] Alcohol Comment 2020-01-27 00:00:00 2020-01-27 00:00:00 Quit dennise sotomayor november 2019 after cirrhosis dx Scooby [facility] Smoking Status Start Date Stop Date Source Never smoker Scooby saldaña Medications Ordered Medication Name Filled Medication Name Start Date Stop Da te Current Medication? Ordering Clinician Indication Dosage Frequency Signature (SIG) Comments Components Source propranolol HCl (PROPRANOLOL ORAL) 2020-04-05 10:35:49 Yes 20mg Take 20 mg by mouth daily . [facility] FUROSEMIDE ORAL 2020-04-05 10:35:49 Yes 60 mg Take 60 mg by mouth daily . [facility] FOLIC ACID ORAL 2020-04-05 10:35:48 Yes 1m g Take 1 mg by mouth daily . [facility] thiamine 100 MG tablet 2020-04-05 10:35:48 Yes 100mg QD Take 100 mg by mouth daily daily . [facility] MULTIVITAMIN ORAL 2020-04-05 10:35:48 Yes Ta ke by mouth daily . [facility] SPIRONOLACTONE ORAL 2020-04-05 10:35:48 Yes 150mg Take 150 mg by mouth daily . [facility] lansoprazole (PREVACID ORAL) 2020-04-05 10:35:48 Yes 40mg Take 40 mg by mouth daily . [facility] furosemide (LASIX) 40 mg tablet 2020-01-31 [...] tablet 2020-01-30 00:00:00 202 23:59:00 No 10mg [id number] Take 1 ta blet (10 mg total) [...] Systolic blood pressure 2020-04-05 10:16:00 100 mm[Hg] [facility] Diastolic blood pressure 2020-04-05 10:16:00 55 mm[Hg] [facility] Heart rate 2020-04-05 10:16:00 66 /min [facility] Body temperature 2020-04-05 10:16:00 37.06 Bhumika [facility] Respiratory rate 2020-04-05 10:16:00 16 /min [facility] Body height 2020-04-05 10:16:00 180.8 cm [facility] Body weight Measured 2020-04-05 10:16:00 81.693 kg [facility] BMI 2020-04-05 10:16:00 24.98 kg/m2 [facility] Oxygen saturation in Arterial blood by Pulse oximetry 04-05 10:16:00 100 /min [facility] r Systolic blood pressure 2020-01-30 07:53:20 109 mm[Hg] [facility] Diastolic blood pressure 2020-01-30 07:53:20 58 mm[Hg] [facility] Heart rate 2020-01-30 07:53:20 72 /min [facility] Body temperature 2020-01-30 07:53:20 36.44 Bhumika Corinna [facility] Respiratory rate 2020-01-30 07:53:20 20 /min [facility] Oxygen saturation in Arterial blood by Pulse oximetry 01-29 07:53:20 98 /min [facility] Body weight 2020-01-29 06:40:00 90.765 kg [facility] BMI 2020-01-29 06:40:00 26.40 kg/m2 [facility] Body height 2020-01-27 17:19:04 185.4 cm [facility] Procedures Procedure Date / Time Performed Performing Clinician [facility] e BASIC METABOLIC PANEL (7) 2020-04-05 11:17:00 Antolin [facility] HEPATIC FUNCTION PANEL 2020-04-05 11:17:00 Antolin Garcia [facility] ALPHA FETOPROTEIN (AFP), TUMOR MARKER 2020-04-05 11:17:00 Antolin Garcia [facility] CBC W/PLT COUNT & AUTO DIFFERENTIAL 2020-04-05 11:17:00 Bora Garcia [facility] PROTHROMBIN TIME/INR 2020-04-05 11:16:00 Antolin Garcia [facility] BASIC METABOLIC PANEL 2020-01-30 06:57:00 [facility] CBC WITH PLATELET AND DIFFERENTIAL 2020-01-30 06:57:00 Eva Velasquez ESTIMATED GFR 2020-01-30 06:57:00 Barry Velasquez MANUAL DIFFERENTIAL 2020-01-30 06:57:00 [facility] ESOPHAGOGASTRODUODENOSCOPY (EGD) 2020-01-29 12:09:00 Stacy Velasquez XR RIBS W PA CHEST LEFT 2020-01-29 10:18:26 Nickolas Clemente BASIC METABOLIC PANEL 2020-01-29 06:38:00 Nickolas [facility] HC COMPLETE BLD COUNT W/AUTO DIFF 2020-01-29 06:38:00 Nickolas Salinas i PROTHROMBIN TIME WITH INR 2020-01-29 06:38:00 Nickolas Clemente [facility]ad [facility] ESTIMATED GFR 2020-01-29 06:38:00 Nickolas Clemente SMEAR REVIEW 2020-01-29 06:38:00 Nickolas Clemente [facility] TRANSFUSE RED BLOOD CELLS 2020-01-28 20:34:34 Barry Velasquez Ala TRANSFUSE RED BLOOD CELLS 2020-01-28 17:06:42 Barry Velasquez Ala ALBUMIN, MISC FLUID 2020-01-28 12:41:00 [facility] CYTOLOGY (NON-GYNECOLOGICAL) REQUEST 2020-01-28 12:40:00 Nickolas Darby US ABDOMINAL PARACENTESIS IMAGING 2020-01-28 12:38:13 Nany Velasquez HC COMPLETE BLD COUNT W/AUTO DIFF 2020-01-28 06:32:00 Zaki Rae BASIC METABOLIC PANEL 2020-01-28 06:32:00 Dominga Rae ESTIMATED GFR 2020-01-28 06:32:00 Dominga aRe [facility] SMEAR REVIEW 2020-01-28 06:32:[address] [facility] [address] ABDOMEN PELVIS WO CONTRAST 2020-01-27 21:19:19 Guerita Rae OCCULT BLOOD, STOOL 2020-01-27 16:00:00 Fazal Grant AMMONIA LEVEL 2020-01-27 14:28:00 Fazal Grant PROTHROMBIN TIME WITH INR 2020-01-27 14:22:00 Laurel Henley PARTIAL THROMBOPLASTIN TIME (PTT) 2020-01-27 14:22:00 Laurel Stuart HC COMPLETE BLD COUNT W/AUTO DIFF 2020-01-27 13:15:00 Fazal Grant BASIC METABOLIC PANEL 2020-01-27 13:15:00 Fazal Grant ESTIMATED GFR 2020-01-27 13:15:00 Fazal Grant SMEAR REVIEW 2020-01-27 13:15:00 Fazal Grant HEMOGLOBIN A1C 2020-01-27 13:15:00 Dominga [facility] LIPID PANEL 2020-01-27 13:15:00 Dominga [facility] B NATRIURETIC PEPTIDE 2020-01-27 13:15:00 Dominga Rae PREPARE RBC 2020-01-27 13:15:00 Barry Velasquez Plan of Care Planned Activity Planned Date Details Comments Source Future Scheduled Test 2025-01-26 00:00:00 Lipid panel (proce dure) [code = 48600779] [facility] r Future Scheduled Test 2020-08-29 00:00:00 INFLUENZA VACCINE [code = INFLUENZA VACCINE] [facility] Future Scheduled Test 2020-07-30 00:00:00 INFLUENZA VACCINE (#1) [code = INFLUENZA VACCINE (#1)] [facility] r Future Scheduled Test 2007 00:00:00 COLONOSCOPY SCREEN ING [code = COLONOSCOPY SCREENING] [facility] Future Scheduled Test 2007 00:00:00 SHINGLES VACCINES (#1) [code = SHINGLES VACCINES (#1)] [facility] Future Scheduled Test 1963 00:00:00 PNEUMOCOCCAL VACCI NE 2-64 YEARS AT RISK (1 of 1 - PPSV23) [code = PNEUMOCOCCAL VACCINE 2-64 YEARS AT RISK (1 of 1 - PPSV23)] [facility] r Future Scheduled Test 1955 00:00:00 Screening for radha gnant neoplasm of colon (procedure) [code = 105906050] [facility] Encounters Start Date/Time End Date/Time Encounter Type Admission Type Attendi [facility] Care Department Encounter ID Source 2020-01-27 00:00:00 2020-01-30 00:00:00 Inpatient [facility]ICKOLAS [facility] [id number] [facility] Results Test Description Test Time Test Comments Results Result Comments Source CT BRAIN WO 2020-08-09 18:37:00 [facility] [address] [address] Patient Name: GUILLERMO SCHROEDER MR #: [id number] : 1955 Age/Sex: 65/M Req #: [id number] Adm Physician: Ordered by: SEDRICK DE LEON DO Report #: [id number] Location: ER Room/Bed: Procedure: [id number] CT/CT BRAIN WO Exam Date: 08/09/20 Exam Time: 1659 REPORT STATUS: Signed EXAMINATION: Head CT HISTORY: Syncope, pain COMPARISON: None. TECHNIQUE: Helical axial images of the head were obtained. Reformatted coronal and sagittal images from the axial data. Dose modulation, iterative reconstruction, and/or weight based adjustment of the mA/kV was utilized to reduce the radiation dose to as low as reasonably achievable. Image quality: Motion/streaking artifact limits the evaluation of the skull base and posterior cranial fossa. FINDINGS: Parenchyma: 1. No abnormal densities. 2. No mass or hemorrhage. No CT evidence of acute territorial vascular insult. Extra-axial spaces:No abnormal density. No extra-axial fluid collections Brain volume: Normal for age. Ventricles: No hydrocephalus or displacement. Arteries: No density suggestive of thrombus. Dural sinuses: No abnormal density. Foramen magnum: No mass, Chiari malformation, or basilar invagination. Sella: No obvious mass. Paranasal/mastoid sinuses: Imaged portions unremarkable. Skull/Scalp: No lytic or blastic lesions. No fractures. IMPRESSION: No intracranial abnormalities. Signed by: Dr. Samuel Caldwell M.D. on 08/09/2020 6:38 PM Dictated By: SAMUEL CALDWELL MD 37 COPY TO: SEDRICK DE LEON DO CHEST SINGLE (PORTABLE) 2020-08-09 17:25:[address] [address] Patient Name: GUILLERMO SCHROEDER MR #: [id number] : 1955 Age/Sex: 65/M Req #: [id number] Adm Physician: Ordered by: SEDRICK DE LEON DO Report #: [id number] Location: ER Room/Bed: Procedure: [id number] DX/CHEST SINGLE (PORTABLE) Exam Date: 08/09/20 Exam Time: 1659 REPORT STATUS: Signed EXAMINATION: CHEST SINGLE (PORTABLE) INDICATION: Syncope. COMPARISON: None FINDINGS: TUBES and LINES: None. LUNGS: Normal lung volumes. There are prominent interstitial lung markings and multifocal hazy opacification of the lungs. PLEURA: No pleural effusion or pneumothorax. HEART AND MEDIASTINUM: The cardiomediastinal silhouette is unremarkable. BONES AND SOFT TISSUES: No acute osseous lesion. Soft tissues are unremarkable. UPPER ABDOMEN: No free air under the diaphragm. IMPRESSION: Prominent interstitial lung markings and multifocal hazy opacification of the lungs. These findings may represent subsegmental atelectasis, aspiration and/or multifocal pneumonia in the proper clinical setting. Signed by: Vega Watts MD on 08/09/2020 5:38 PM Dictated By: VEGA WATTS MD 37 Transcribed By: TRINH on 08/09/201737 COPY TO: SEDRICK DE LEON DO US GUIDED PARACENTESIS 2020-07-23 16:24:00 [address] [address] Patient Name: GUILLERMO SCHROEDER MR #: [id number] : 1955 Age/Sex: 65/M Req #: [id number] Adm Physician: Ordered by: VINEET LEDBETTER MD Report #: [id number] Location: Room/Bed: Procedure: [id number] US/US GUIDED PARACENTESIS Exam Date: 07/23/20 Exam Time: 1349 REPORT STATUS: Signed PROCEDURE: Ultrasound-guided paracentesis Procedural Personnel Attending physician(s): Donavon العراقي MD Pre-procedure diagnosis: Cirrhosis, ascites Post-procedure diagnosis: Same Indication: Ascites with pain or pressure symptoms Additional clinical h istory: None Complications: No immediate complications. IMPRESSION: [place]trasound[place] [address] mL of serous fluid. Plan: Resume care [...] technique: Real-time ultrasound guidance Catheter placed: 5F Yueh Post-drainage ultrasound: No visible ascites Additional Details [...] LEDBETTER MD US GUIDED PARACENTESIS 2020-06-19 14:04:00 [address] [address] Patient Name: GUILLERMO SCHROEDER MR #: [id number] : 1955 Age/Sex: 64/M Req #: [id number] Adm Physician: Ordered by: VINEET LEDBETTER MD Report #: [id number] Location: Room/Bed: Procedure: [id number] US/US GUIDED PARACENTESIS Exam Date: 06/19/20 Exam Time: 1223 REPORT STATUS: Signed PROCEDURE: Ultrasound-guided paracentesis Procedural Personnel Attending physician(s): Donavon العراقي MD Pre-procedure diagnosis: Cirrhosis, ascites Post-procedure diagnosis: Same Indication: Ascites with pain or pressure symptoms Additional clinical h istory: None Complications: No immediate complications. IMPRESSION: Ultrasound[place] [address] mL of serous fluid. Plan: Resume care [...] 2:04 PM Dictated By: DONAVON العراقي MD 3877 Transcribed By: TRINH on 06/19/205 COPY TO: VINEET LEDBETTER MD US GUIDED PARACENTESIS 2020-05-20 16:03:00 [address] [address] Patient Name: GUILLERMO SCHROEDER MR #: [id number] : 1955 Age/Sex: 64/M [facility] #: [id number] [facility] Physician: Ordered by: VINEET LEDBETTER MD Report #: [id number] Location: Room/Bed: Procedure: US/US GUIDED PARACENTESIS Exam Date: 05/20/20 Exam Time: 1437 REPORT STATUS: Signed US Guided Paracentesis. History: Recurrent ascites. Request for paracentesis. Movie Theater Usher: Brenton Senior MD. Personal Computer Network Engineer: None. Modality: Ultrasonography Sedation: None. Anesthesia: Lidocaine [...] ng/mL <10.0 MORIS (test code = MORIS) Media Production Support Manager ID Shannon MONIQUE F Lab Interpretation (test code = 40055-5) [facility] TUMOR [id number] 12:19:00* Test Item Value Reference Range Interpretation Comments ALPHA-FETOPROTEIN (BEAKER) (test code = 1094) 6.6 ng/mL <10.0 Media Production Support Manager ID Shannon MONIQUE FBasic Metabolic [id number] 11:59:00* Test Item Value Reference Range Interpretation [...] mg/dL 70-105 H Calcium (test code = 19080-8) 9.4 mg/dL 8.4-10.2 EGFR (test code = 98625-9) 97 mL/min/1.73 sq m ESTIMATED GFR IS NOT ACCURATE CREATININE CLEARANCE IN PREDICTING GLOMERULAR FILTRATION RATE. ESTIMATED GFR IS NOT APPLICABLE FOR DIALYSIS PATIENTS. MORIS (test code = MORIS) Media Production Support Manager ID Shannon MONIQUE FSpecimen slightly ict ivelisse Lab Interpretation (test code = 05089-9) Abnormal [facility] function [id number] 11:59:00* Test Item Value Reference Range Interpretation Comments Protein, Total (test code = 2885-2) 7.4 6.0- 8.3 gm/dL Albumin (test code = 25721-6) 3.6 g/dL 3.5-5 Total Bilirubin (test code = 1974-2) 3.9 mg/dL 0.2-1.2 H Bilirubin, Direct (test code = 1967-7) 1.7 mg/dL 0.1-0.5 H Alkaline Phosphatase (test code = 6768-6) 182 U/L 40-150 H AST (test code = 1920-8) 41 U/L 5-34 H ALT (test code = 1742-6) 17 U/L 6-55 MORIS (test code = MORIS) Media Production Support Manager ID - ENEIDA FLORESpecimerodrigo slightly ict ivelisse Lab Interpretation (test code = 45751-4) Abnormal [facility] METABOLIC [id number] 11:59:00* Test Item Value Reference Range Interpretation [...] GFR IS NOT APPLICABLE FOR DIALYSIS PATIENTS. Media Production Support Manager ID Shannon FLORESpecimerodrigo slightly ictericHEPATIC FUNCTION PANEL 2020-04-05 11:59:00* Test [...] (test code = 347) 17 U/L 6-55 Media Production Support Manager CHARITO - ENEIDA FSpecimen slightly ictericPro-time/[id number] 11:49:00 * Test Item Value Reference Range [...] heart valves. Lab Interpretation (test code = 49108-4) Abnormal [facility]/[id number] 11:49:00* Test Item Value Reference Range Interpretation [...] K/CU MM L MPV (test code = 41785-6) 8.5 fL 9.4-12.4 L nRBC (test code [...] % 0-1 Lab Interpretation (test code = 31227-7) [facility]normal [facility] & AUTO [id number] 11:43:00* Test Item Value Reference Range Interpretation [...] = 2801) 0 % 0-1 US GUIDED [id number] 10:25:00 [facility] [address] [address] Patient Name: GUILLERMO SCHROEDER MR #: [id number] : 1955 Age/Sex: 64/M Req #: [id number] Adm Physician: Ordered by: VINEET LEDBETTER MD Report #: [id number] Location: Room/Bed: Procedure: [id number] US/U S GUIDED PARACENTESIS Exam Date: 03/21/20 Exam Time: 1405 REPORT STATUS: Signed PROC EDURE: Ultrasound-guided paracentesis Procedural Personnel Attending [facility](s): Donavon العراقي MD Pre-procedure diagnosis: Cirrhosis, ascites Post -procedure diagnosis: Same Indication: Ascites with pain or pressure symptoms Additional clinical history: None Complications: No immediate complicatio ns. IMPRESSION: Ultrasound[place] [address] mL of serous fluid. Plan: Resume care [...] PY TO: VINEET LEDBETTER MD US ABDOMEN [id number] 20:14:[address] [address] Patient Name: GUILLERMO SCHROEDER MR #: [id number] : 1955 Age/Sex: 64/M Req #: [id number] Adm Physician: Ordered by: VINEET LEDBETTER MD Report #: [id number] Location: US Room/Bed: Procedure: [id number] US/U S ABDOMEN COMPLETE Exam Date: 03/21/20 Exam Time: 15 07 REPORT STATUS: Signed EXAM: C omplete Abdominal Ultrasound INDICATION: [id number] ASCITE S COMPARISON: None. TECHNIQUE: Transverse [...] COPY TO: VINEET LEDBETTER MD Cytology (non-gynecological) [id number] 14:43:01* Test Item Value Reference Range Interpretation Comments Case number (test code = 6883299) [id number] Cytology (non-gynecological) report (test code = 1178) See link below for PDF Lab Report Result status (test code = 7956419) This is Final Report for [id number] [facility] with platelet and [id number] 08:14:12* Test Item Value Reference Range Interpretation Comments WBC (test code = 76530-2) 5.8 4.2- 11.0 k/uL RBC (test code = 51639-8) 2.86 m/uL 4.04-5.86 L HGB (test code = 718-7) 9.6 g/dL 13-17.3 L HCT (test code = 4544-3) 28.9 % 34-45 L MCV (test code = 787-2) 101.0 fL 80-98 H MCH (test code = 785-6) 33.6 pg 27-34 MCHC (test code = 786-4) 33.2 g/dL 31.5-36.5 RDW - SD (test code = 19304-0) 78.6 fL 37-51 H MPV (test code = 79006-9) 8.7 fL 7.4-10.4 Platelet count (test code = 59723-0) 82 150- 400 k/uL L Nucleated RBC (test code = 74725-8) 0.00 /100 WBC Neutrophils (test code = 94622-0) 59.0 % 36-66 Lymphocytes (test code = 09080-2) 36.0 % 24-44 Monocytes (test code = 55985-8) 5.0 % 0-6 Eosinophils (test code = 52970-8) 0.0 % 0-6 Basophils (test code = 96505-6) 0.0 % 0-1.2 Lab Interpretation (test code = 14134-9) Abnormal [place] [facility] [id number] 08:14:12* Test Item Value Reference Range Interpretation Comments Manual differential (test code = 65955-9) PERFORMED Neutrophils (test code = 51298-5) 59.0 % 36-66 Lymphocytes (test code = 08387-8) 36.0 % 24-44 Monocytes (test code = 00903-9) 5.0 % 0-6 Eosinophils (test code = 88824-1) 0.0 % 0-6 Basophils (test code = 51961-4) 0.0 % 0-1.2 Metamyelocytes (test code = 740-1) 0 % 0-1 Promyelocytes (test code = 783-1) 0 % 0-1 Platelet slide review (test code = 31548-4) Decreased A Anisocytosis (test code = 702-1) slight Polychromasia (test code = 86020-7) slight Tear drop cells (test code = 7791-7) Occasional Schistocytes (test code = 800-3) rare Ovalocytes (test code = 774-0) Occasional Enlarged platelets (test code = 12804-5) Occasional Lab Interpretation (test code = 76410-5) Abnormal [place] [facility] [id number] 08:01:22* Test Item Value Reference Range Interpretation Comments Sodium (test code = 2951-2) 134 135- 150 mEq/L L Potassium (test code = 2823-3) 3.5 3.5- 5.0 mEq/L Chloride (test code = 2075-0) 100 98- 112 mEq/L CO2 (test code = 2028-9) 21 mmol/L 24-31 L Anion gap (test code = 98653-8) 13@ANIO 7- 15 mEq/L BUN (test code = 3094-0) 8 mg/dL 7-18 Creatinine (test code = 2160-0) 0.70 mg/dL 0.7-1.2 Glucose (test code = 2345-7) 106 mg/dL 65-100 H Calcium (test code = 06394-8) 8.1 mg/dL 8.8-10.2 L Lab Interpretation (test code = 18339-6) Abnormal [place] [facility] [id number] 08:01:22* Test Item Value Reference Range Interpretation Comments Estimated GFR (test code = 5488) >=90 mL/min/1.73 m2 Catergory Units InterpretationG1 >=90 Normal or highG2 60-89 Mildly snbtwqcfgB7g 45-59 Mildly to moderately mzjfgmmqjP6k 30-44 Moderately to severely decreasedG4 15-29 Severely decreasedG5 <15 Kidney failureThe eGFR was calculated using the Chronic Kidney Disease Epidemiology Collaboration (CKD-EPI) equation. Interpretation is based on recommendations of the National Kidney Foundation-Kidney Disease Outcomes Quality Initiative (NKF-KDOQI) published in 2014. [facility] MethodistXR Ribs W Pa Chest [id number] 10:22:57Hm Interface, Radiology Results - 01/29/2020 10:26 AM CSTEXAMINATION: XR RIBS W PA CHEST LEFTCLINICAL HISTORY: fall painCOMPARISON: None.IMPRESSION:1.Bibasilar atelectasis. No pleural effusion. No pneumothorax or midline shift. No focal consolidation.2.The mediastinal contours and cardiac silhouette are un remarkable. Mild atherosclerotic3.There is an acute, nondisplaced posterior late ral seventh rib fracture.4.Otherwise the bony structures are unremarkable.[facility]-2 [id number] MethodistSmear [id number] 08:39:50* Test Item Value Reference Range Interpretation Comments Platelet slide review (test code = 67316-7) Decreased A Anisocytosis (test code = 702-1) 1+ Polychromasia (test code = 56658-3) 1+ Schistocytes (test code = 800-3) FEW Target cells (test code = 05576-2) FEW Shirin cells (test code = 7790-9) FEW Lab Interpretation (test code = 89124-8) Abnormal [facility] with [id number] 07:20:47* Test Item Value Reference Range Interpretation Comments Prothrombin time (test code = 5902-2) 16.3 11.5- 14.5 sec H INR (test code = 26480-7) 1.30 Fo r patients on anticoagulant therapy, reference ranges below:Indication: INR ValueTreatment of Venous Thrombosis, 2.0-3.0pulmonary emboli, or prophylaxisof a venous thrombosis, or systemic emboli.High dose, high risk patients 3.0-4.5with mechanical valves.NOTE: INR values over 3.0 are sometimes associated withgastrointestinal hemorrhage, especially values over 4.0. Lab Interpretation (test code = 27706-7) Abnormal [place] [facility], misc [id number] 19:48:14* Test Item Value Reference Range Interpretation Comments Fluid type (test code = 69333-9) Paracentesis Albumin, fluid (test code = 1747-5) 0.8 g/dL The reference interval(s) and other method performance specifications have not been established for this body fluid. The test results must be integrated into the clinical context for interpretation.This test has been modified from the manufacturers instructions. The performance characteristics were determined by [facility] in a manner consistent with CLIA requirements. This test has not been cleared or approved by the U.S. Food and Drug Administration. [facility] CenterPrepare RBC, 2 [id number] 17:15:00* Test Item Value Reference Range Interpretation Comments Product name (test code = 25) Apheresis Red Cell AS3 #1 LR Unit number (test code = 3311493) [id number] Product code (test code = 3092) [id number] Dispense status (test code = 24) Transfused Blood expiration date (test code = 302) 622260984791 Blood type code (test code = 308) 600 Blood type (test code = 1314) A NEGATIVE Compatibility (test code = 6400) Compatible [place] MethodistUS Abdominal Paracentesis [id number] 13:03:23Hm Interface, Radiology Results - 01/28/2020 1:06 PM CSTEXAMINATION: US ABDOMINAL PARACENTESIS IMAGINGCLINICAL HISTORY: ASCITESCOMPARISON:None.TECHNI QUE:The procedure's risks, benefits, and alternatives were discussed with the pa sasha and written, informed consent was obtained.Using ultrasound guidance, a si te for needle entry was selected and the overlying skin was prepped and draped i n the usual sterile fashion. 1% buffered lidocaine was used for local anesthesia . A 5 Malay Catheter and Needle was inserted into the peritoneal cavity and 6.8 L of peritoneal fluid was removed. The patient tolerated the procedure without difficulty and was discharged to the radiology recovery area for monitoring prio r to discharge.EBL: None. COMPLICATIONS: None.SPECIMENS: As above.ASSISTANTS: No ne.IMPRESSION:Uncomplicated ultrasound-guided diagnostic and therapeutic paracen tesis.[facility]UCKJ-[id number] MethodistCT Abdomen Pelvis Wo [id number] 21:55:24Hm Interface, Radiology Results - 01/27/2020 9:58 [...] of acute cholecystitis.4. Colonic diverticulosis without diverticuli tis.[facility]-[id number] Methodunion [facility] hospitalB natriuretic [id number] 16:17:45* Test Item Value Reference Range Interpretation Comments BNP (test code = 80693-6) 59 pg/mL 0-100 [place] MethodistOccult blood, [id number] 16:11:29* Test Item Value Reference Range Interpretation Comments Occult blood, stool (test code = 2334-1) Negative for occult blood. Specimen InformationSpecimen Source: StoolSpecimen Site: Nonpreserved [place] MethodistHemoglobin [id number] 16:02:48* Test Item Value Reference Range Interpretation Comments Hemoglobin A1C (test code = 65608-8) <4.7 4-5.6 HbA1c cutoffs for diagnosing diabetes:4.0% - 5.6% = normal5.7% - 6.4% = increased risk for diabetes (prediabetes)9>=6.5% = bkfbhupv4Rdped for glycemic control (ADA 2016)< 7.0% Target for non adults with diabetes. More or less stringent targets may be appropriate for individual patients. <7.5% Target for Children and adolescents with type 1 diabetes. [place] MethodistLipid [id number] 15:42:03* Test Item Value Reference Range Interpretation Comments Cholesterol (test code = 2093-3) 209 mg/dL 0-199 H Triglycerides (test code = 2571-8) 102 mg/dL 0-149 HDL cholesterol (test code = 2085-9) 46 mg/dL 40-9999 LDL cholesterol (test code = 2089-1) 162 mg/dL 0-99 H Result obtained by direct LDL measurement Lipid panel interpretation (test code = 66356-5) See below Total Cholesterol (mg/dL) LDL Cholesterol [...] (>=200 mg/dL) Lab Interpretation (test code = 80567-9) Abnormal [place] MethodistAmmonia [id number] 14:55:35* Test Item Value Reference Range Interpretation Comments Ammonia (test code = 1841-6) 33 umol/L 16-60 [place] MethodistPartial thromboplastin time, [id number] 14:47:54* Test Item Value Reference Range Interpretation Comments PTT (test code = 3173-2) 39.4 23.0- 36.0 sec H P TT therapeutic range for unfractionated heparin is61.0-112.0 seconds which corresponds to Anti-Xa0.3-0.7 U/ml. Lab Interpretation (test code = 39755-3) Abnormal [place] MethodistType and [id number] 14:28:00* Test Item Value Reference Range Interpretation Comments ABO grouping (test code = 883-9) A Rh type (test code = 51654-6) NEG Antibody screen (gel) (test code = 890-4) NEG [place] [facility] GUIDED [id number] 10:41:00 [facility] [address] [address] Patient Name: GUILLERMO SCHROEDER MR #: [id number] : 1955 Age/Sex: 64/M Req #: [id number] Adm Physician: Ordered by: VINEET LEDBETTER MD Report #: [id number] Location: Room/Bed: Procedure: [id number] US/U S GUIDED PARACENTESIS Exam Date: 12/28/19 Exam Time: 0838 REPORT STATUS: Signed PROC EDURE: Ultrasound-guided paracentesis Procedural Personnel Attending phys lilo(s): Donavon العراقي MD Pre-procedure diagnosis: Cirrhosis, [...]
--- NOTE | 2020-08-09 19:30 | NUR ---
Report to Chi
--- NOTE | 2020-08-09 21:22 | NUR ---
RECEIVED REPORT FROM JACQUELINE, ER NURSE. PATIENT ARRIVED VIA STRETCHER TO THE UNIT. PATIENT IS A&OX3. PATIENT HAS SKIN TEAR ON RIGHT HAND/WRIST AND RIGHT ELBOW AND BRUISES ON ARMS.
[2020-08-09 21:30] VITALS: BP 102/49
[2020-08-09 21:38] VITALS: BP 102/49
[2020-08-09] MEDS ORDERED: FAMOTIDINE 20 MG/2 ML VIAL IV STA (23:16)
[2020-08-09] MEDS ORDERED: SODIUM CHLORIDE 0.9% 1000ML 1,000 ML IV SCH (23:30)
[2020-08-09] MEDS ORDERED: CHLORDIAZEPOXIDE HCL 25 MG CAP PO PRN (23:30)
[2020-08-09] MEDS: CEFTRIAXONE SOD 1 GM/NS 50 ML 50 ML IV SCH (23:38)
[2020-08-10] VITALS (8 sets, daily range): BP systolic 99–117; BP diastolic 53–61
[2020-08-10 04:58] LABS: BILIRUBIN,URINE NEGATIVE (NEGATIVE); CLARITY,URINE CLEAR (CLEAR); COLOR,URINE YELLOW (YELLOW); KETONES,URINE NEGATIVE (NEGATIVE); LEUKOCYTE ESTERASE ,URINE NEGATIVE (NEGATIVE); NITRITE,URINE NEGATIVE (NEGATIVE); PROTEIN,URINE DIPSTICK NEGATIVE (NEGATIVE); URINE UROBILINOGEN 0.2 mg/dL (0.2 - 1)
[2020-08-10 05:03] LABS: AMORPHOUS SEDIMENT,URINE FEW (FEW); BACTERIA,URINE FEW /HPF; EPITHELIAL CELLS,URINE FEW /LPF; RBC,URINE 0-5 /HPF (0-5); WBC,URINE (MAN) 0-5 /HPF (0-5)
[2020-08-10 06:06] LABS: BASOPHILS % 0.3 % (0.0-1.0); EOSINOPHILS # (AUTO) 0.3 (0.0-0.4); EOSINOPHILS % 3.7 % (0.0-6.0); LYMPHOCYTES # (AUTO) 1.3 (1.0-3.2); LYMPHOCYTES % 14.9 % (18.0-39.1); MEAN CORPUSCULAR HEMOGLOBIN 32.1 pg (28-32); MEAN CORPUSCULAR HGB CONC 33.3 g/dL (31-35); MEAN CORPUSCULAR VOLUME 96.3 fL (81-99); MONOCYTES # (AUTO) 0.8 (0.2-0.8); MONOCYTES % 8.8 % (4.4-11.3); NEUTROPHILS # (AUTO) 6.2 (2.1-6.9); PLATELET COUNT 100 x10e3/uL (140-360); RED BLOOD COUNT 2.15 x10e6/uL (4.3-5.7); RED CELL DISTRIBUTION WIDTH 16.4 % (11.7-14.4)
[2020-08-10 06:25] LABS: ALANINE AMINOTRANSFERASE 12 IU/L (0-55); ALBUMIN 3.1 g/dL (3.5-5.0); ALBUMIN/GLOBULIN RATIO 1.2 (0.8-2.0); ALKALINE PHOSPHATASE 92 IU/L (40-150); ANION GAP 17.3 mmol/L (8-16); BLOOD UREA NITROGEN 20 mg/dL (7-26); BUN/CREATININE RATIO 22 (6-25); CALCIUM 8.7 mg/dL (8.4-10.2); CARBON DIOXIDE 16 mmol/L (22-29); CHLORIDE 101 mmol/L (98-107); CREATININE, SERUM 0.92 mg/dL (0.72-1.25); EST GLOMERULAR FILTRATION RATE > 60 ML/MIN (60-); GLUCOSE 84 mg/dL (74-118); POTASSIUM 4.3 mmol/L (3.5-5.1); SODIUM 130 mmol/L (136-145)
[2020-08-10 06:30] LABS: HEMATOCRIT 20.7 % (38.2-49.6); HEMOGLOBIN 6.9 g/dL (14.0-18.0)
--- NOTE | 2020-08-10 06:31 | NUR ---
CALLED DR. REYNA AND LEFT A VOICEMAIL TELLING HIM THAT THE PATIENT HAS A CRITICAL LAB OF HEMOGLOBIN OF 6.9 AND Hct OF 20.7. WAITING FOR A CALL BACK
[2020-08-10] MEDS ORDERED: SPIRONOLACTONE100 MG (06:44)
[2020-08-10] MEDS ORDERED: COMPLEX B-1001 EACH (06:44)
[2020-08-10] MEDS ORDERED: PROPRANOLOL HCL10 MG PO (06:44)
[2020-08-10] MEDS ORDERED: OMEPRAZOLE20 M2 (06:44)
[2020-08-10] MEDS ORDERED: LACTULOSE20 GM/30 M PO ×2 (06:44→17:00)
[2020-08-10] MEDS ORDERED: MULTIVITAMINS1 EAC7 (06:44)
[2020-08-10 06:49] LABS: MAGNESIUM 1.6 MG/DL (1.3-2.1)
--- NOTE | 2020-08-10 06:58 | NUR ---
BEDSIDE SBAR REPORT RECEIVED FROM JUAN A ROGERS, PM SHIFT. PT FOUND RESTING IN BED IN NO ACUTE DISTRESS. AAOX4 AND ABLE TO MAKE NEEDS KNOWN. PT DENIES ANY NEEDS AT THIS TIME. PATIENT WAS EDUCATED ON FALL RISK PRECAUTIONS AND VERBALIZED UNDERSTANDING. CALL LIGHT AND BELONGINGS PLACED NEARBY. WILL CONTINUE TO MONITOR.
[2020-08-10 07:01] LABS: THYROID STIMULATING HORMONE 2.556 uIU/mL (0.350-4.940)
--- NOTE | 2020-08-10 07:19 | NUR ---
GAVE BEDSIDE SHIFT REPORT TO ONCOMING NURSE. CALL LIGHT WITHIN REACH. PATIENT IN BED. HOURLY ROUNDING PERFORMED.
[2020-08-10] MEDS ORDERED: FAMOTIDINE 20 MG/2 ML VIAL IV SCH (09:00)
--- NOTE | 2020-08-10 09:45 | NUR ---
CALL PLACED TO DR. REYNA TO MAKE AWARE OF H/H=6.9/20.7. LEFT DETAILED VM. AWAITING A RETURN CALL FOR ORDERS.
--- NOTE | 2020-08-10 10:19 | NUR ---
PER ATTENDING, CALL PLACED TO DR. LEDBETTER, LEFT MESSAGE WITH ANSWERING SERVICE TO MAKE MD AWARE OF H/H=6.9/20.7. AWAITING A RETURN CALL FROM MD WITH ORDERS
[2020-08-10] MEDS: THIAMINE HCL 100 MG TAB PO SCH (10:46)
[2020-08-10] MEDS: PANTOPRAZOLE 40 MG 10ML VIAL IV SCH (10:46)
[2020-08-10] MEDS: LACTULOSE SYRUP 20 GM/30 ML UDC PO SCH ×2 (10:46→16:39)
[2020-08-10] MEDS ORDERED: FOLIC ACID 1 MG TAB PO ONE (11:00)
[2020-08-10] MEDS ORDERED: SPIRONOLACTONE 25 MG TAB PO ONE (11:00)
[2020-08-10] MEDS ORDERED: SODIUM CHLORIDE 0.9% 250ML 250 ML IV ONE (11:00)
[2020-08-10] MEDS ORDERED: FUROSEMIDE INJ 10 MG/ML 2 ML VIAL IV ONE (11:00)
[2020-08-10] MEDS: CEFTRIAXONE SOD 1 GM/NS 50 ML 50 ML IV SCH ×2 (11:38→23:30)
--- NOTE | 2020-08-10 12:32 | History and Physical ---
CHIEF COMPLAINT: Syncopal episode in the bathroom. HISTORY OF PRESENT ILLNESS: The patient is a 65-year-old male with anemia associated with chronic iron deficiency associated with liver cirrhosis with esophageal varices and generalized weakness. The patient came in because he passed out in the bathroom. The patient's hemoglobin and hematocrit dropped down to 6.9 and 20.7 respectively. The patient is stable at this time. He has also stated that he gets paracentesis every four weeks and has been approximately 3-4 weeks ago. The patient is otherwise stable at this time. PAST MEDICAL HISTORY: Advanced liver cirrhosis associated with alcohol consumption. The patient stopped drinking back in November 2018. He has also had esophageal varices. He has history of pulmonary embolism. PAST SURGICAL HISTORY: As above. SOCIAL HISTORY: The patient does not smoke. He stopped drinking in November 2019. ALLERGIES: KNOWN ALLERGIES. HOME MEDICATION: List is reviewed. The patient was on lactulose, multivitamin, omeprazole, propranolol, spironolactone. PHYSICAL EXAMINATION: VITAL SIGNS: Temperature is 98, blood pressure 101/52, pulse rate 65, respirations 18. GENERAL: The patient is not in acute distress, awake. HEENT: Normocephalic and atraumatic. Anicteric. NECK: Grossly supple. PULMONARY: Diminished breath sounds at bases. CARDIOVASCULAR: S1, S2. Regular rate and rhythm. ABDOMEN: Soft. Positive for ascites. EXTREMITIES: Positive for edema. NEUROLOGIC: No focal deficit. LABORATORY DATA: Sodium is 130, potassium 4.3, chloride 101, bicarb 16, BUN is 20, creatinine 0.9, glucose 84. WBC is 8.6, hemoglobin 6.9, hematocrit 20.7, and platelets 100. IMPRESSION: 1. Symptomatic anemia associated with syncopal episode. 2. Progressive anemia secondary to iron deficiency and also most likely esophageal leakage. 3. Liver cirrhosis with abdominal ascites. 4. Chronic medical problems. PLAN: 2 units blood transfusion. Resume blood pressure medication, but give IV Lasix and low-dose Aldactone for now. We will give the patient blood transfusion and then increase the Lasix and Aldactone. is patient's road grader operator and I put in a consult for him as well. We will continue with his current medication except for any IV fluids. Discontinue IV fluids for now. Lactulose resumed. Repeat lab work in the morning post transfusion. Allan 1 g q.12h empirically. COVID-19 PCR is still pending. The patient seemed to be stable. The patient may need paracentesis if he is still cleared by Wednesday. MD JOSY Campbell/AMANDA /[id number]
[2020-08-10] MEDS ORDERED: FUROSEMIDE40 MG PO (16:49)
[2020-08-10] MEDS ORDERED: FERROUS SULFAT325 MG PO (16:51)
[2020-08-10] MEDS ORDERED: PROPRANOLOL HCL 10 MG TAB PO SCH (17:00)
[2020-08-10] MEDS: PROPRANOLOL HCL 10 MG TAB PO SCH (17:03)
[2020-08-10] MEDS: RIFAXIMIN 550 MG TABLET PO SCH (17:18)
[2020-08-10] MEDS ORDERED: FUROSEMIDE 40 MG TAB PO ONE (17:30)
--- NOTE | 2020-08-10 18:55 | NUR ---
Bedside rounds completed with morning nurse. Pt alert and oriented to name, lying in bed HOB 30 degrees, denies pain at this time. Call light within reach.
--- NOTE | 2020-08-10 19:17 | Consultation ---
DATE OF CONSULTATION: HISTORY OF PRESENT ILLNESS: Mr. Schroeder is a well-known patient to me from office. He carries a history of cirrhosis diagnosed in November of 2019, most likely due to long history of ethanol abuse. The patient had so far several paracentesis with large volume removed. He always advised to be on 2 g salt diet in addition to his diuretic spironolactone and Lasix. He was referred to [facility] for further care of the end-stage liver disease. He is having difficulty to sustain his visit schedule with [facility] due to lack of insurance. The patient currently is suffering from decompensated cirrhosis complicated by history of bleeding, esophageal varices, ascites requiring multiple paracentesis. He was admitted to our hospital after a syncopal episode. Upper endoscopy was done last in January 2020, shows small nonbleeding esophageal varices. No bands were placed, started on propranolol. He also had workup in November 2019 at the time of diagnosis, cirrhosis with CT and ultrasound of the liver and only show ascites. No specific abnormality. No clear etiology of the current admission diagnosis of syncope except perhaps related to hepatic encephalopathy. At the time of this consult, the patient was awake, alert, oriented, in his bed. He said this is the 1st time ever has passed out. No other specific complaint. He maintained his baseline overall health status. MEDICATIONS: In the hospital, ceftriaxone, lactulose, thiamine, Protonix, Aldactone, Lasix, propranolol and Librium. PAST MEDICAL HISTORY: Insignificant except for the cirrhosis surgically. No major surgeries done in the past. SOCIAL HISTORY: He is single. Has two kids. He is employed. No smoking but former heavy alcohol intake. ALLERGIES: NIL. PHYSICAL EXAMINATION: GENERAL: Awake, alert, oriented, hemodynamically stable. VITAL SIGNS: Temperature 98, blood pressure 108/61. HEENT: Yellow sclerae. NECK: Supple. LUNGS: Clear to auscultation. HEART: Irregularly irregular. Occasional irregular beat. ABDOMEN: Soft, distended. No acute sign. No masses. No organomegaly. EXTREMITIES: No edema. LABORATORY DATA: Current workup. Hemoglobin of 6.9, hematocrit 20.7, so far received 2 unit of RBCs. White cell count 8, platelets 100. Urinalysis is unremarkable. BUN 20, creatinine 0.92, sodium 130, potassium 4.3, calcium normal, magnesium normal. TSH normal. B12 normal. Liver function normal except total protein mildly elevated at 1.6 now. Iron saturation is 5%. IMPRESSION: I am not clear about the etiology of his syncope except for hepatic encephalopathy. I will stop his Librium. Continue his propranolol. Continue the Xifaxan and continue Aldactone and furosemide. Continue Protonix. Schedule paracentesis and start him on iron and vitamin C in addition to thiamine, folate and multivitamin. Jessica Lisa MD RD/MODL /[id number]
[2020-08-10 20:30] LABS: HEMATOCRIT 23.6 % (38.2-49.6); HEMOGLOBIN 7.9 g/dL (14.0-18.0)
--- NOTE | 2020-08-10 20:36 | NUR ---
Blood obtained for labs, x1 stick, Pt tolerated well.
[2020-08-10 20:42] LABS: INR 1.18; PROTHROMBIN TIME 15.6 seconds (11.9-14.5)
[2020-08-10 20:43] LABS: PARTIAL THROMBOPLASTIN TIME 37.7 seconds (23.8-35.5)
[2020-08-10] MEDS ORDERED: SODIUM CHLORIDE 0.9% 250ML 250 ML ONE (23:41)
--- NOTE | 2020-08-10 23:47 | NUR ---
Pt c/o 06/07 right arm pain. Communicated with Dr. Herman, ordered Tylenol 650mg PO prn and ice pack.
[2020-08-11] VITALS (8 sets, daily range): BP systolic 98–111; BP diastolic 54–69
[2020-08-11] MEDS: ACETAMINOPHEN 325 MG TAB PO PRN ×2 (00:19→17:03)
--- NOTE | 2020-08-11 06:32 | NUR ---
Left voice message with Dr. Herman Pt. refusing telemetry .
[2020-08-11] MEDS: LACTULOSE SYRUP 20 GM/30 ML UDC PO SCH ×2 (09:00→16:54)
[2020-08-11] MEDS ORDERED: FOLIC ACID 1 MG TAB PO SCH (09:00)
[2020-08-11] MEDS ORDERED: FUROSEMIDE INJ 10 MG/ML 2 ML VIAL IV SCH (09:00)
[2020-08-11] MEDS: RIFAXIMIN 550 MG TABLET PO SCH ×2 (10:04→16:54)
[2020-08-11] MEDS: PROPRANOLOL HCL 10 MG TAB PO SCH ×2 (10:04→16:54)
[2020-08-11] MEDS: SPIRONOLACTONE 25 MG TAB PO SCH (10:05)
[2020-08-11] MEDS: PANTOPRAZOLE 40 MG 10ML VIAL IV SCH (10:06)
[2020-08-11] MEDS: FERROUS SULFATE 325 MG TAB PO SCH (10:07)
[2020-08-11] MEDS: CHOLECALCIFEROL 1,000 UNIT TAB PO SCH (10:07)
[2020-08-11] MEDS: FOLIC ACID 1 MG TAB PO SCH (10:07)
[2020-08-11] MEDS: THIAMINE HCL 100 MG TAB PO SCH (10:08)
[2020-08-11] MEDS: ASCORBIC ACID 500 MG TAB PO SCH (10:08)
[2020-08-11] MEDS ORDERED: SPIRONOLACTONE 25 MG TAB PO SCH (11:00)
[2020-08-11] MEDS: CEFTRIAXONE SOD 1 GM/NS 50 ML 50 ML IV SCH (11:42)
--- NOTE | 2020-08-11 13:22 | NUR ---
PATIENT'S JALEN DRAIN REMOVED FROM RLQ PER ORDER. Addendum: 08/11/20 at 1325 by Ranjeet Caballero RN NOTE ENTERED FOR WRONG PATIENT.
--- NOTE | 2020-08-11 19:15 | NUR ---
Report received from morning nurse. Pt alert and oriented to name, lying in bed HOB 45 degrees, denies pain at this time. Call light within reach.
[2020-08-12] VITALS: BP 112/66
[2020-08-12] MEDS: CEFTRIAXONE SOD 1 GM/NS 50 ML 50 ML IV SCH ×2 (00:10→12:56)
[2020-08-12 04:00] VITALS: BP 107/63
--- NOTE | 2020-08-12 07:00 | NUR ---
BEDSIDE SHIFT REPORT RECEIVED FROM THE FINE CHEMICALS OPERATOR RN. EDUCATED PT ABOUT FALL PRECAUTIONS. PT VERBALIZED UNDERSTANDING. BED IS LOW AND LOCKED. SIDE RAILS X2. CALL LIGHT WITH IN EASY REACH. PT DENIES NEEDS AT THIS TIME.
--- NOTE | 2020-08-12 07:30 | NUR ---
PAGED RADIOLOGY REGARDING PARACENTESIS. DR. MADDY ALFRED WILL DO THE PROCEDURE PER RADIOLOGY.
--- NOTE | 2020-08-12 07:45 | NUR ---
PAGED DR. REYNA REGARDING PARACENTESIS. RECEIVED NEW ORDERS.
[2020-08-12 07:47] VITALS: BP 110/69
--- NOTE | 2020-08-12 08:03 | NUR ---
LÁZARO TO ADMINISTER MORNING PO MEDS PER DR. REYNA
[2020-08-12] MEDS: PANTOPRAZOLE 40 MG 10ML VIAL IV SCH (08:20)
[2020-08-12] MEDS: FERROUS SULFATE 325 MG TAB PO SCH (08:22)
[2020-08-12] MEDS: SPIRONOLACTONE 25 MG TAB PO SCH (08:23)
[2020-08-12] MEDS: FOLIC ACID 1 MG TAB PO SCH (08:23)
[2020-08-12] MEDS: THIAMINE HCL 100 MG TAB PO SCH (08:24)
[2020-08-12] MEDS: CHOLECALCIFEROL 1,000 UNIT TAB PO SCH (08:24)
[2020-08-12] MEDS: ASCORBIC ACID 500 MG TAB PO SCH (08:24)
[2020-08-12] MEDS: PROPRANOLOL HCL 10 MG TAB PO SCH (08:25)
[2020-08-12] MEDS: RIFAXIMIN 550 MG TABLET PO SCH (08:25)
[2020-08-12] MEDS: LACTULOSE SYRUP 20 GM/30 ML UDC PO SCH (08:25)
[2020-08-12 10:21] VITALS: BP 110/69
[2020-08-12 11:03] VITALS: BP 104/60
--- NOTE | 2020-08-12 11:25 | NUR ---
PT OFF UNIT TO RADIOLOGY FOR PROCEDURE IN SAFE CONDITION.
[2020-08-12] MEDS ORDERED: ALBUMIN 25% 12.5GM 50ML 150 ML IV ONE (11:44)
[2020-08-12] MEDS ORDERED: ALBUMIN 25% 12.5GM 50ML 50 ML IV ONE (12:25)
--- NOTE | 2020-08-12 12:47 | Diagnostic Imaging Report ---
HISTORY : Symptomatic ascites. Technique/findings: Informed written consent was obtained. Discussion of risks, benefits, and alternatives were made with the patient. The patient expressed understanding and agreed to proceed. A universal timeout was performed prior to starting the procedure. Initial ultrasound images demonstrate large volume of ascites. A pocket of fluid was identified in the right lower quadrant of the abdomen. This area was marked. The area was prepped and draped in the usual sterile fashion. 1% lidocaine was applied to the skin and deep soft tissues. Color ultrasound was used to assess for any vessels within the vicinity of the planned trajectory of the one-step, a image was saved. A 5 Malay one-step catheter was inserted and removed from the peritoneal space and approximately 8.1 liters of clear yellow ascitic fluid was aspirated from the abdomen. Specimens were collected for the lab. There were no immediate complications. Impression: Successful ultrasound guided paracentesis with aspiration of 8.1 liters of fluid. Signed by: Emanuel Soliman MD on 08/12/2020 12:44 PM
--- NOTE | 2020-08-12 12:55 | NUR ---
PT IS BACK TO THE UNIT FROM RADIOLOGY. OH DENIES NEEDS AT THIS TIME.
--- NOTE | 2020-08-12 12:56 | NUR ---
8.1 L FLUID REMOVED PER RADIOLOGY
--- NOTE | 2020-08-12 12:57 | NUR ---
RIGHT ABDOMEN PARACENTESIS DRESSING IS CDI. PT DENIED FURTHER NEEDS.
--- NOTE | 2020-08-12 13:00 | NUR ---
INFORMED PT ABOUT FOLLOW UP WITH DR. LEDBETTER. PT VERBALIZED UNDERSTANDING.
--- NOTE | 2020-08-12 14:00 | NUR ---
PT DISCHARGED HOME SAFELY WITH FAMILY MEMBER. DISCHARGE EDUCATION GIVEN AND PT VERBALIZED UNDERSTANDING. IV REMOVED. TIP INTACT. DRESSING APPLIED. PT ESCORTED VIA WHEEL CHAIR TO THE PRIVATE AUTO AT THE FRONT ENTRANCE. PT DENIED FURTHER NEEDS.
--- NOTE | 2020-08-12 19:47 | Discharge Summary ---
PRIMARY CARE PHYSICIAN: Dr. Kevan Carr. FINAL DIAGNOSES: 1. Advanced liver cirrhosis associated with repeated paracentesis, liver cirrhosis, ascites. 2. Status post syncope secondary to severe anemia, status post 2 units of blood transfusion. SUMMARY: This 65-year-old male chronically ill with advanced liver cirrhosis, associated with abdominal ascites. The patient gets paracentesis every month. He is also on multiple medications. Apparently, his blood count is low, progressive, and he did have blood transfusion in the past. The patient came in with syncopal episode because he was weak and he was anemic. His blood count was low. He is status post blood transfusion. He went from 6.9 hemoglobin to 7.9, hemoglobin post 2 units of blood transfusion. The patient is stable. The patient has been cleared by Dr. Lisa, the patient's operations manager assistant, for discharge home after paracentesis. The patient is stable. Discharged home after paracentesis. The patient is otherwise stable. Resume home medication upon discharge. MD JOSY Campbell/AMANDA /[id number]
== END 2020-08-12 15:51 | disposition home or self-care (01) | DRG 433 ==
LOC: ER 16:34 → ERHOLD 18:03 → MED/SURG2 21:36 → OBSVTOIN 08-10 10:20
PROVIDERS: ADMIT Internal Medicine; ATTEND Internal Medicine
PROC: 30233N1 Transfusion of Nonautologous Red Blood Cells into Peripheral Vein, Percutaneous Approach (ICD-10-PCS; 2020-08-10)
PROC: 0W9G3ZZ Drainage of Peritoneal Cavity, Percutaneous Approach (ICD-10-PCS; principal; 2020-08-12)
DX: K70.31 Alcoholic cirrhosis of liver with ascites (principal); I85.10 Secondary esophageal varices without bleeding; R55 Syncope and collapse; D63.8 Anemia in other chronic diseases classified elsewhere; I25.10 Atherosclerotic heart disease of native coronary artery without angina pectoris; Z86.718 Personal history of other venous thrombosis and embolism; F10.21 Alcohol dependence, in remission; K72.90 Hepatic failure, unspecified without coma; Z11.59 Encounter for screening for other viral diseases; Z86.711 Personal history of pulmonary embolism
CPT/HCPCS: 36415; 49083; 70450; 71045; 80053; 80320; 81001; 82270; 82550; 82553; 82607; 82746; 83540; 83735; 84443; 84466; 84484; 85014; 85018; 85025; 85610; 85730; 86850; 86900; 86920; 93005; 99284; G0378; J0696; J1940; J3411; J7030; J7050; P9016; U0002

== ENCOUNTER → 2020-09-13 | Outpatient (CLI) | payer SELFPAY ==
[~2020-09-13] MED LIST changes: +ALBUMIN 25% 12.5GM 50ML 100 ML IV ONE; +ALBUMIN 25% 12.5GM 50ML 200 ML IV ONE; -ALBUMIN IV ONE; +COMPLEX B-1001 EACH; +FERROUS SULFAT325 MG PO; +FUROSEMIDE40 MG PO; +LACTULOSE20 GM/30 M PO; +MULTIVITAMINS1 EAC7; +OMEPRAZOLE20 M2; +PROPRANOLOL HCL10 MG PO; +SPIRONOLACTONE100 MG
[2020-09-13 11:17] LABS: HEMOGLOBIN 9.3 g/dL (14.0-18.0)
[2020-09-13 11:38] LABS: INR 1.11; PROTHROMBIN TIME 14.9 seconds (11.9-14.5)
[2020-09-13 11:39] LABS: PARTIAL THROMBOPLASTIN TIME 41.4 seconds (23.8-35.5)
[2020-09-13 13:54] LABS: BODY FLUID COLOR YELLOW; BODY FLUID TYPE PERITONEAL
[2020-09-13 13:57] LABS: BODY FLUID APPEARANCE SL.CLOUDY; RBC,BODY FLUID 13 cells/uL; WBC,BODY FLUID 64 cells/uL
[2020-09-13 15:13] LABS: LYMPHOCYTES,BODY FLUID 34 %; MONO/MACROPHG,BODY FLUID 55 %; NEUTROPHILS,BODY FLUID 11 %
== END ==
LOC: US 10:52
PROVIDERS: ATTEND Internal Medicine Gastroenterology
DX: R18.8 Other ascites (principal)
CPT/HCPCS: 36415; 49083; 82040; 84157; 85014; 85049; 85610; 85730; 87070; 87205; 88112; 88305; 89051

== ENCOUNTER → 2020-10-03 | Outpatient (CLI) | payer SELFPAY ==
[~2020-10-03] MED LIST changes: -ALBUMIN 25% 12.5GM 50ML 100 ML IV ONE; +ALBUMIN 25% 12.5GM 50ML 150 ML IV ONE; -ALBUMIN 25% 12.5GM 50ML 200 ML IV ONE; +ALBUMIN 25% 12.5GM 50ML 50 ML IV ONE
[2020-10-03 17:01] LABS: BODY FLUID APPEARANCE CLOUDY; BODY FLUID COLOR YELLOW; BODY FLUID TYPE PERITONEAL
[2020-10-03 17:37] LABS: EOSINOPHILS,BODY FLUID 2 %; LYMPHOCYTES,BODY FLUID 38 %; MONO/MACROPHG,BODY FLUID 54 %; NEUTROPHILS,BODY FLUID 6 %
[2020-10-03 18:35] LABS: RBC,BODY FLUID 54 cells/uL; WBC,BODY FLUID 23 cells/uL
== END ==
LOC: US 13:56
PROVIDERS: ATTEND Internal Medicine Gastroenterology
DX: K72.90 Hepatic failure, unspecified without coma (principal)
CPT/HCPCS: 36415; 49083; 82040; 84157; 87070; 87205; 88112; 88305; 89051; C1729